=== PATIENT | female | born 1965 | race Two or more races ===

== ENCOUNTER 2020-10-26 23:24 | Emergency (ER) | payer OTHER, SELFPAY ==
[2020-10-26 23:59] VITALS: BP 98/51; PULSE 78; RESP 16; TEMP 36.5; O2SAT 98; BMI 23.9
[2020-10-27 02:00] VITALS: BP 110/65; PULSE 84; RESP 16; O2SAT 99
--- NOTE | 2020-10-27 03:42 | ED_ITS ---
HPI - Abdominal Pain General Chief Complaint: Abdominal Pain Stated Complaint: ABD PAIN Time Seen by Provider: 10/27/20 01:20 Source: patient Mode of arrival: ambulatory History of Present Illness HPI narrative: This is a 55-year-old female with 2 days of nonradiating epigastric pain and endorses that she is status post cholecystectomy. Patient states that the pain gets worse with deep breathing and movement and denies any association with having eaten. This pain is not associated with decrease in appetite, nausea, vomiting, diarrhea, or obstipation. Patient's last bowel movement was this morning and she states it was not black nor did she notice any blood within the stool. Otherwise, she denies urinary pain/burning/frequency, fevers, chills, shortness of breath, recent travel. Related Data Previous Rx's Medication Instructions Recorded ciprofloxacin HCl [Cipro] 250 mg PO Q12H 3 Days #6 tab 10/27/20 sucralfate [Carafate] 10 ml PO BID #420 ml 10/27/20 Allergies Allergy/AdvReac Type Severity Reaction Status Date / Time menthol Allergy Severe ANAPHYLAXIS Verified 10/27/20 00:02 [From Vicks Cough Drops] camphor [From VICKS VAPORUB] Allergy Unknown ANAPHYLAXIS Verified 10/27/20 00:02 eucalyptus Allergy Unknown ANAPHYLAXIS Verified 10/27/20 00:02 [From VICKS VAPORUB] petrolatum,white Allergy Unknown ANAPHYLAXIS Verified 10/27/20 00:02 [From VICKS VAPORUB] trimethobenzamide [Tigan] Allergy Unknown Unknown Verified 10/27/20 00:02 turpentine oil Allergy Unknown ANAPHYLAXIS Verified 10/27/20 00:02 [From VICKS VAPORUB] From Tigan Allergy Severe ANAPHYLAXIS Uncoded 05/05/20 15:27 Review of Systems Review of Systems Pertinent positives and negatives as stated in HPI 10 point review of systems is otherwise negative. Physical Exam Vital Signs: Vital Signs: Last Vital Signs Temp 97.6 F 10/27/20 04:00 Pulse 64 10/27/20 04:00 Resp 16 10/27/20 04:00 BP 106/48 L 10/27/20 04:00 Pulse Ox 95 10/27/20 04:00 Body Mass Index 23.9 VITAL SIGNS: Reviewed. GENERAL: Well developed, well nourished, in no acute distress. HEAD: Normocephalic/atraumatic NOSE: Nares patent bilateral OROPHARYNX: no oral lesions noted, posterior pharynx clear NECK: Supple, no adenopathy LUNGS: Normal breath sounds. No adventitious sounds or accessory muscle use. SpO2<98> CARDIOVASCULAR: Regular rate and rhythm without noted murmurs ABDOMEN: Soft, tenderness noted in epigastrium without rebound, non-distended with bowel sounds. SKIN: Inspection of the skin reveals no rashes NEUROLOGIC: Alert and oriented x 4. Strength and sensation to light touch were grossly intact x 4. Course Course Course Narrative: This is a 55-year-old female with history and clinical presentation suggestive of possible obstructive symptoms given a ?mesh that was placed in her stomach?, gastritis, pancreatitis, stomach ulcer. Review of all investigations is negative for any acute findings other than evidence of chronic pancreatitis when reviewed on previous lab work. On re-e valuation, patient has had good improvement of symptoms with the Carafate solution and was noted to have a UTI for which she will receive initial antibiotics in the emergency department and then be discharged with the remaining course. All results and findings were discussed with her at bedside. MDM - Abdominal Pain Lab Data Result diagrams: 10/27/20 03:55 10/27/20 03:55 Labs: Lab Results 10/27/20 10/27/20 10/27/20 Range/Units 03:55 03:55 03:55 WBC 7.3 (4.8-10.8) X10*3/uL RBC 4.22 (4.20-5.50) X10*6/uL Hgb 12.6 (12.0-16.0) g/dl Hct 37.8 (37-47) % MCV 89.6 (80-98) fL MCH 29.9 (27.0-33.0) pg MCHC 33.3 (31.0-35.0) g/dl RDW 12.0 (11.0-16.0) % Plt Count 185 (160-400) X10*3/uL MPV 10.0 (9.4-12.3) fL Immature Gran % (Auto) 0.1 (0.0-0.4) % Neut % (Auto) 55.7 (45-73) % Lymph % (Auto) 33.1 (20-40) % [place] % (Auto) 7.0 (2-11) % Eos % (Auto) 3.7 (0-4) % Baso % (Auto) 0.4 (0-2) % Lymph # (Auto) 2.4 (1.2-4.9) X10*3/uL [place] # (Auto) 0.5 (0.1-1.2) X10*3/uL Eos # (Auto) 0.3 (0.0-0.4) X10*3/uL Baso # (Auto) 0.0 (0.0-0.2) X10*3/uL Abs Immat Gran (auto) 0.01 (0.00-0.03) X10*3/uL Absolute Neuts (auto) 4.1 (2.0-8.3) X10*3/uL Absolute Nucleated RBC 0.000 (0.0-0.012) X10*3/uL Nucleated RBC % (auto) 0.0 (0.0-0.2) /100WBC Sodium 141 (135-145) mmol/L Potassium 4.1 (3.3-5.1) mmol/L Chloride 103 (96-108) mmol/L Carbon Dioxide 33 H (22-29) mmol/L Anion Gap 9 L (12-20) BUN 19 H (9-16) mg/dL Creatinine 0.97 (0.5-1.4) mg/dL Estim Creat Clear Calc 55.4 Estimated GFR > 60 Random Glucose 112 (60-115) mg/dL Calcium 8.9 (8.4-10.2) mg/dL Total Bilirubin 0.3 (0.0-1.0) mg/dL AST 19 (5-31) U/L ALT 12 (0-31) U/L Alkaline Phosphatase 89 (39-117) U/L Total Protein 6.7 (6.5-8.0) g/dL Albumin 4.1 (3.5-5.0) g/dL Lipase 84 H (8-78) U/L Urine Color YELLOW Urine Appearance CLEAR Urine pH 6.5 (5.0-8.0) Ur Specific [place] 1.025 (1.005-1.025) Urine Protein NEG (NEG-TRACE) MG/DL Urine Glucose (UA) NEG (NEG) MG/DL Urine Ketones NEG (NEG) MG/DL Urine Blood NEG (NEG) Urine Nitrite NEG (NEG) Ur Leukocyte Esterase TRACE H (NEG) Urine RBC 1-4 (0) /HPF Urine WBC 5-9 H (0-4) /HPF Ur Squamous Epith Cells 1+ /LPF Urine Bacteria 2+ /LPF Urine Mucus 1+ /LPF Discharge Plan Discharge Clinical Impression: Elevated lipase UTI (urinary tract infection) Qualifiers: Urinary tract infection type: site unspecified Hematuria presence: without hematuria Qualified Code(s): N39.0 - Urinary tract infection, site not specified Patient Disposition: Home, Self-Care Instructions: Urinary Tract Infection in Women (ED) Additional Instructions: Increase fluid hydration especially with water. Follow-up with your primary care provider for re-evaluation in 2-3 days. Do not hesitate to return to the emergency department should you develop any acute worsening of your symptoms. Prescriptions: New ciprofloxacin HCl [Cipro] 250 mg tablet 250 mg PO Q12H 3 Days Qty: 6 RF: 0 sucralfate [Carafate] 100 mg/mL suspension 10 ml PO BID Qty: 420 RF: 0 Referrals: Physician,Unknown [Primary Care Provider] - 2 days REPLACED BY [facility] Past Medical History Source: nursing notes reviewed Social History Social History Alcohol intake: never Smoking Status: Current every day smoker Smoked in Last 30 Days: Yes Use of substances other than those prescribed or required for medical reasons: No Advance Directives: No Advance Directives Information Provided: No
[2020-10-27 04:00] VITALS: BP 106/48; PULSE 64; RESP 16; TEMP 36.4; O2SAT 95
[2020-10-27 04:00] LABS: MANUAL DIFF FLAG NO
[2020-10-27 04:03] LABS: Basophils Percent Auto 0.4 % (0-2); Eosinophils Absolute Auto 0.3 X10*3/uL (0.0-0.4); Eosinophils Percent Auto 3.7 % (0-4); Hematocrit 37.8 % (37-47); Hemoglobin 12.6 g/dl (12.0-16.0); Imm Gran Abs Auto 0.01 X10*3/uL (0.00-0.03); Imm Gran Pct Auto 0.1 % (0.0-0.4); Lymphocytes Absolute Auto 2.4 X10*3/uL (1.2-4.9); Lymphocytes Percent Auto 33.1 % (20-40); Mean Corpuscular HGB Conc 33.3 g/dl (31.0-35.0); Mean Corpuscular Hemoglobin 29.9 pg (27.0-33.0); Mean Corpuscular Volume 89.6 fL (80-98); Monocytes Absolute Auto 0.5 X10*3/uL (0.1-1.2); Neutrophils Absolute Auto 4.1 X10*3/uL (2.0-8.3); Neutrophils Percent Auto 55.7 % (45-73); Platelet Count 185 X10*3/uL (160-400); Red Blood Count 4.22 X10*6/uL (4.20-5.50); White Blood Count 7.3 X10*3/uL (4.8-10.8)
[2020-10-27 04:05] LABS: Glucose Urine UA NEG (NEG); Leukocyte Esterase Urine TRACE (NEG); Nitrite Urine NEG (NEG); PH 6.5 (5.0-8.0); Specific Gravity - Urine 1.025 (1.005-1.025); UACC Culture Trigger YES; Urine Blood NEG (NEG); Urine Ketones NEG (NEG); Urine Protein NEG (NEG-TRACE)
[2020-10-27 04:07] LABS: Color Urine YELLOW
[2020-10-27 04:08] LABS: Appearance Urine CLEAR
[2020-10-27] MEDS: Ketorolac Tromethamine 15 MG/ML VIAL IVPUSH (04:09)
[2020-10-27] MEDS: Sucralfate Oral Suspension 1 GM/10 ML ORAL.SUSP PO (04:09)
[2020-10-27] MEDS: Acetaminophen 325 MG TABLET 975 MG PO (04:09)
[2020-10-27 04:12] LABS: Bacteria Urine 2+ /LPF; Mucus Urine 1+ /LPF; Squamous Epithelial Cell Urine 1+ /LPF
[2020-10-27 04:40] LABS: Alanine Aminotransferase 12 U/L (0-31); Albumin Level 4.1 g/dL (3.5-5.0); Alkaline Phosphatase 89 U/L (39-117); Anion Gap 9 (12-20); Aspartate Amino Transferase 19 U/L (5-31); Bilirubin Total 0.3 mg/dL (0.0-1.0); Blood Urea Nitrogen 19 mg/dL (9-16); Calcium 8.9 mg/dL (8.4-10.2); Carbon Dioxide 33 mmol/L (22-29); Chloride 103 mmol/L (96-108); Creatinine Clr Calc Pharmacy 55.4; Estimated Glomerular Filt Rate > 60; Glucose Random 112 mg/dL (60-115); Potassium 4.1 mmol/L (3.3-5.1); Sodium 141 mmol/L (135-145); Total Protein 6.7 g/dL (6.5-8.0)
[2020-10-27 04:53] LABS: Lipase 84 U/L (8-78)
[2020-10-27 05:00] VITALS: PULSE 72; RESP 16
[2020-10-27] MEDS: levoFLOXacin 250 MG TABLET PO (05:50)
== END 2020-10-27 05:54 | disposition home or self-care (01) ==
PROVIDERS: Emergency Provider Student in an Organized Health Care Education/Training Program
DX: N39.0 Urinary tract infection, site not specified (principal); R74.8 Abnormal levels of other serum enzymes; F17.200 Nicotine dependence, unspecified, uncomplicated
CPT/HCPCS: 36415; 80053; 81001; 81003; 83690; 85025; 87086; 96374; 99284; J1885

== ENCOUNTER 2021-03-19 00:45 | Emergency (ER) | payer OTHER, SELFPAY ==
[2021-03-19 00:51] VITALS: BP 110/64; PULSE 84; RESP 16; TEMP 36.4; O2SAT 96; BMI 21.2
--- NOTE | 2021-03-19 01:15 | ED_ITS ---
HPI - Headache General Chief Complaint: Headache Stated Complaint: migraine/vomiting Time Seen by Provider: 03/19/21 01:10 Source: patient Mode of arrival: ambulatory Limitations: no limitations History of Present Illness HPI Narrative: Patient comes in complaining of a migraine headache , started 1 week ago. Patient states she was seen approximately 3 days ago at [facility], patient was given a prescription which she did not feel. Patient complaining of nausea and vomiting, no diarrhea. Patient states she gets a migraine every 3 weeks, but this time it has not resolved. Related Data Previous Rx's Medication Instructions Recorded ciprofloxacin HCl 250 mg tablet 250 mg PO Q12H 3 Days #6 tab 10/27/20 (Cipro) sucralfate 100 mg/mL oral 10 ml PO BID #420 ml 10/27/20 suspension (Carafate) qbsiardmct-wiwzuylridwvy-asefplwr 1 cap PO Q6H PRN #14 cap 03/19/21 50 mg-300 mg-40 mg capsule (Fioricet) Allergies Allergy/AdvReac Type Severity Reaction Status Date / Time menthol Allergy Severe ANAPHYLAXIS Verified 03/19/21 00:51 [From Vicks Cough Drops] camphor [From VICKS VAPORUB] Allergy Unknown ANAPHYLAXIS Verified 03/19/21 00:51 eucalyptus Allergy Unknown ANAPHYLAXIS Verified 03/19/21 00:51 [From VICKS VAPORUB] petrolatum,white Allergy Unknown ANAPHYLAXIS Verified 03/19/21 00:51 [From VICKS VAPORUB] trimethobenzamide [Tigan] Allergy Unknown Unknown Verified 03/19/21 00:51 turpentine oil Allergy Unknown ANAPHYLAXIS Verified 03/19/21 00:51 [From VICKS VAPORUB] From Tigan Allergy Severe ANAPHYLAXIS Uncoded 05/05/20 15:27 Review of Systems Review of Systems: Constitutional : No Weight loss, No Fever, No Chills, No Night Sweats, No Fatigue, No Malaise ENT/Mouth : No Hearing loss, No Ear Pain, No Nasal Congestion, No Sinus Pain, No Hoarseness, No sore throat, No Rhinorrhea, No Swallowing Difficulty Eyes: No Eye Pain, No Swelling, No Redness, No Foreign Body, No Discharge, No Vision Changes Cardiovascular : No Chest Pain, No SOB, No Dyspnea on Exertion, No Orthopnea, No Edema, No Palpitations Respiratory : No Cough, No Sputum, No Wheezing, No Smoke Exposure, No Dyspnea Gastrointestinal : No Nausea, No Vomiting, No Diarrhea, No Constipation, No abdominal Pain, No Hematochezia, No Melena Genitourinary : no irregular bleeding, No Dysuria, No Urinary Frequency, No Hematuria, No Urinary Incontinence, No Urgency, No Flank Pain, No Urinary Flow Changes, No Hesitancy Musculoskeletal : No joint pain, No Myalgias, No Joint Swelling Skin : No Skin Lesions, No rash Neuro : No Weakness, No Numbness, No Paresthesias, No Loss of Consciousness, No Dizziness, complaining of a migraine headache Psych : No Anxiety/Panic, No Depression, No SI/HI/AH/VH, No Social Issues, Heme/Lymph: No Bruising, No Bleeding,No Lymphadenopathy Endocrine : No Polyuria, No Polydipsia, No Temperature Intolerance PMFSH Past Medical History Medical History (Updated 03/19/21 @ 02:54 by Carly Morillo MD) Migraine Social History Social History Alcohol intake: never Advance Directives: No Advance Directives Information Provided: No Physical Exam Vital Signs: Vital Signs: Last Vital Signs Temp 97.6 F 03/19/21 00:51 Pulse 84 03/19/21 00:51 Resp 16 03/19/21 00:51 BP 110/64 03/19/21 00:51 Pulse Ox 96 03/19/21 00:51 Body Mass Index 21.2 Const: Other: Appearance: Alert. Oriented X3. Crying Eyes: Pupils equal, round and reactive to light. Positive photophobia ENT: Pharynx normal. Neck: Normal inspection. Neck supple. No lymph nodes noted. No crepitus CVS: Normal heart rate and rhythm. Pulses normal. Normal S1 and S2 Respiratory: No respiratory distress. Breath sounds normal. No Wheezing. No rales Abdomen: Soft and nontender. No rigidity. No distention. good BS x4 Skin: Skin warm and dry. Normal skin color. Normal skin turgor. Extremities: No lower extremity edema. No lower extremity edema. No Lacerations. No Rash Neuro: Oriented X 3. No motor deficit. No sensory deficit. Moving all extermities. No slurred speech. Course Course Course Narrative: Patient states that headache is much better, patient requesting 1 dose of Fioricet prior to discharge. Patient denies any visual changes, no nausea or vomiting. Discharge Plan Discharge Clinical Impression: Migraine Qualifiers: Migraine type: unspecified Status migrainosus presence: without status migrainosus Intractability: not intractable Qualified Code(s): G43.909 - Migraine, unspecified, not intractable, without status migrainosus Patient Disposition: Home, Self-Care Instructions: Migraine Headache (ED) Additional Instructions: Please follow-up with your primary care physician tomorrow. If you have any worsening or new symptoms, please return to the emergency room or call 911 Prescriptions: New zklpnqiohj-jsuirulvsjwur-zvdw [Fioricet] 50-300-40 mg capsule 1 cap PO Q6H PRN (Reason: pain) Qty: 14 RF: 0 No Action ciprofloxacin HCl [Cipro] 250 mg tablet 250 mg PO Q12H 3 Days Qty: 6 RF: 0 sucralfate [Carafate] 100 mg/mL suspension 10 ml PO BID Qty: 420 RF: 0
[2021-03-19] MEDS: diphenhydrAMINE HCL 50 MG/ML VIAL IVPUSH (01:35)
[2021-03-19] MEDS: Ketorolac Tromethamine 15 MG/ML VIAL 30 MG IVPUSH (01:39)
[2021-03-19] MEDS: Metoclopramide HCl 10 MG/2 ML VIAL IVPUSH (01:42)
[2021-03-19] MEDS: 0.9 % Sodium Chloride 1,000 ML 999 ML IV (01:45)
[2021-03-19] MEDS: Butalb/Acetamin/Caff 50/325/40 TABLET 1 TAB PO (03:01)
[2021-03-19 03:06] VITALS: RESP 16
== END 2021-03-19 03:07 | disposition home or self-care (01) ==
PROVIDERS: Emergency Provider Emergency Medicine
DX: G43.909 Migraine, unspecified, not intractable, without status migrainosus (principal); Z79.899 Other long term (current) drug therapy
CPT/HCPCS: 96365; 96375; 99283; 99284; J1200; J1885; J2765

== ENCOUNTER → 2021-10-25 08:16 | Outpatient (BNVA) | payer OTHER, SELFPAY | PROVIDERS: Visit Provider Orthopaedic Surgery | DX: M19.041 Primary osteoarthritis, right hand (principal); M19.042 Primary osteoarthritis, left hand; R20.0 Anesthesia of skin; R20.2 Paresthesia of skin | CPT/HCPCS: 99202 ==

== ENCOUNTER 2022-01-25 04:43 | Emergency (ER) | payer OTHER, SELFPAY ==
[2022-01-25 05:00] VITALS: BP 98/52; PULSE 90; RESP 18; TEMP 36.7; O2SAT 97; BMI 25.7
--- NOTE | 2022-01-25 07:22 | ED_ITS ---
HPI - General Adult General Chief complaint: General Medical Stated complaint: n/v, stomach pain, tick bite on foot Time Seen by Provider: 01/25/22 07:22 Source: patient Mode of arrival: ambulatory Limitations: no limitations History of Present Illness HPI narrative: 56-year-old female came in for evaluation of tick imbedded in her left foot. Unknown duration of the tech been on her, patient also been complaining of migraine and some nausea, but no abdominal pain no fever, no chills. Related Data Home Medications Medication Instructions Recorded Confirmed albuterol sulfate 90 mcg/actuation 0 mcg inhalation 10/25/21 aerosol inhaler Previous Rx's Medication Instructions Recorded ciprofloxacin HCl 250 mg tablet 250 mg PO Q12H 3 days #6 tabs 10/27/20 (Cipro) bxfklvlmyd-hfottmfrxchhu-aixgldey 1 cap PO Q6H PRN pain #14 caps 03/19/21 50 mg-300 mg-40 mg capsule (Fioricet) doxycycline hyclate 100 mg tablet 100 mg PO BID #14 tabs 01/25/22 Allergies Allergy/AdvReac Type Severity Reaction Status Date / Time menthol Allergy Severe ANAPHYLAXIS Verified 10/25/21 08:33 [From Vicks Cough Drops] camphor [From VICKS VAPORUB] Allergy Unknown ANAPHYLAXIS Verified 10/25/21 08:33 eucalyptus Allergy Unknown ANAPHYLAXIS Verified 10/25/21 08:33 [From VICKS VAPORUB] petrolatum,white Allergy Unknown ANAPHYLAXIS Verified 10/25/21 08:33 [From VICKS VAPORUB] trimethobenzamide [Tigan] Allergy Unknown Unknown Verified 10/25/21 08:33 turpentine oil Allergy Unknown ANAPHYLAXIS Verified 10/25/21 08:33 [From VICKS VAPORUB] From Tigan Allergy Severe ANAPHYLAXIS Uncoded 10/25/21 08:33 Review of Systems Review of Systems: All other systems are reviewed and are negative Constitutional: Reports as per HPI and Reports no additional constitutional complaints Eyes: Reports as per HPI and Reports no additional eye complaints Reports system reviewed and no additional complaints, except as documented Cardiovascular: Reports as per HPI and Reports no additional cardiovascular complaints Respiratory: Reports as per HPI and Reports no additional respiratory complaints Gastrointestinal: Reports as per HPI and Reports no additional gastrointestinal complaints Genitourinary: Reports no additional female genitourinary complaints Musculoskeletal: Reports no additional musculoskeletal complaints Skin/Breast: Reports system reviewed and no additional complaints, except as docu Psychiatric: Reports no additional psychiatric complaints Endocrine: Reports no additional endocrine complaints Hematologic/Lymphatic: Reports no additional hematologic/lymphatic complaints Allergic/Immunologic: Reports no additional allergic/immunologic complaints Reports system reviewed and no additional complaints, except as documented and Reports Abnormal speech present [facility] Past Medical History Medical History Migraine Social History Social History Alcohol intake: never Advance Directives: No Advance Directives Information Provided: Yes Current occupational status: disabled 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 Blood pressure normal. Heart rate normal. Respiration rate normal. Temperature normal. Oxygen saturation normal. Appearance: Alert. Oriented X3. No acute distress. Head: Normal external exam. Normocephalic. Atraumatic. No Romoe signs noted. No raccoon eyes noted Eyes: PERRLA. EOMI. Conjunctiva and sclera normal. Eyelids normal. ENT: TM's Normal. Pharynx normal. Uvula midline. Moist mucous membranes. No trismus noted. No drooling noted. No muffled voice noted. Neck: Normal inspection. Neck supple. FROM. No adenopathy. Thyroid Normal. No meningeal signs. No neck mass noted. CVS: Normal heart rate and rhythm. Heart sound normal. No murmurs noted. Pulses normal throughout. Respiratory: No respiratory distress. Painless inspiration. Breath sounds normal. No wheezes/rales/rhonchi noted. Chest nontender. No accessory muscle usage noted or decreased air movement noted. Abdomen: Soft and nontender. Bowel sounds normal in all 4 quadrants. No distention noted. No organomegaly noted. No visible injury noted. Back: No CVA tenderness. Full range of motion noted. Skin: Skin warm and dry. Normal skin color. Normal skin turgor. No rashes/lesions/lacerations noted. Extremities: Left foot exam: A tick imbedded and now 5th toe webbing no receive male. No bleeding. Neuro: Oriented X 3. Cranial nerve exam: II-XII are grossly intact No motor deficit. No sensory deficit. Reflexes normal. Course Course Course Narrative: Status post tick removal from the 5th sweating space of the left foot unknown periods of time that the tick was embedded in her scan were start on doxycycline prophylactically.. Migraines feel better, patient is not nauseated or vomiting, no abdominal pain. Procedure note: Tick removal from the left foot. Patient was in supine position could not tolerate the procedure without anaesthesia 2 cc of lidocaine was given in the 5th web space, using forceps and needle able to remove the tick. Discharge Plan Discharge Clinical Impression: Migraine, Tick bite with subsequent removal of tick Patient Disposition: Home, Self-Care Instructions: Tick Bite (ED) Prescriptions: New doxycycline hyclate 100 mg tablet 100 mg PO BID Qty: 14 0RF No Action ciprofloxacin HCl [Cipro] 250 mg tablet 250 mg PO Q12H 3 Days Qty: 6 0RF dhmepfhgki-lfvuchhrmaqab-otps [Fioricet] 50-300-40 mg capsule 1 cap PO Q6H PRN (Reason: pain) Qty: 14 0RF albuterol sulfate 90 mcg/actuation HFA aerosol inhaler 0 mcg inhalation Referrals: Physician,Unknown J [Primary Care Provider] -
[2022-01-25] MEDS: Lidocaine HCl 1 % MPF 5 ML VIAL SUBCUT (07:35)
--- NOTE | 2022-01-25 07:43 | PC.NURSE ---
Dr Tran at bedside. pt has been yelling to or at staff since this RN arrival. This RN unable to view embedded tick.
[2022-01-25 07:45] VITALS: BP 121/63; PULSE 71; RESP 18; TEMP 36.8; O2SAT 97
== END 2022-01-25 08:55 | disposition home or self-care (01) ==
PROVIDERS: Emergency Provider Emergency Medicine
DX: G43.909 Migraine, unspecified, not intractable, without status migrainosus (principal); S90.862A Insect bite (nonvenomous), left foot, initial encounter; W57.XXXA Bitten or stung by nonvenomous insect and other nonvenomous arthropods, initial encounter; Y93.9 Activity, unspecified; Y92.9 Unspecified place or not applicable; Y99.9 Unspecified external cause status
CPT/HCPCS: 96372; 99284

== ENCOUNTER 2022-01-30 08:11 | Emergency (ER) | payer OTHER, SELFPAY ==
[2022-01-30 08:37] VITALS: BP 127/65; PULSE 92; RESP 18; TEMP 36.5; O2SAT 98; BMI 24.7
--- NOTE | 2022-01-30 08:42 | ED_ITS ---
HPI - General Adult General Chief complaint: General Medical Stated complaint: Bug bites Time Seen by Provider: 01/30/22 08:41 Source: patient Mode of arrival: ambulatory Limitations: no limitations History of Present Illness HPI narrative: Patient is a 56 year old female presenting to the emergency department today with itchy skin. Patient states that where she is currently living has a lot of small bugs that she feels are biting her skin, regularly. Patient states that she has somewhere else to stay and is not in an active crisis, she just wants the itching to stop. Patient states that she pulled a tick off of her right arm this morning and she noticed as soon as she bit her. Patient denies any dizziness, lightheadedness, abdominal pain, nausea, vomiting, fever, chills, blurry vision, double vision, loss of vision, chest pain, difficulty breathing, shortness of breath, back pain, night sweats, pain with urination, increased urinary frequency, increased urinary urgency, blood in her urine or stool, syncope or a near syncopal episode, recent trauma or falls, bowel incontinence, bladder incontinence, bowel retention, bladder retention, or any other complaints at this time. Onset (ago): day(s) Severity: mild Severity scale (1-10): 2 Quality: other (itchy) Relieving factors: none Exacerbating factors: none Associated symptoms: denies other symptoms Treatments prior to arrival: none Related Data Home Medications Medication Instructions Recorded Confirmed albuterol sulfate 90 mcg/actuation 0 mcg inhalation 10/25/21 aerosol inhaler Previous Rx's Medication Instructions Recorded ciprofloxacin HCl 250 mg tablet 250 mg PO Q12H 3 days #6 tabs 10/27/20 (Cipro) mnpbvejabw-hkqmzfdygbvta-ryuasyog 1 cap PO Q6H PRN pain #14 caps 03/19/21 50 mg-300 mg-40 mg capsule (Fioricet) doxycycline hyclate 100 mg tablet 100 mg PO BID #14 tabs 01/25/22 prednisone 20 mg tablet 20 mg PO DAILY 12 days #26 tabs 01/30/22 Allergies Allergy/AdvReac Type Severity Reaction Status Date / Time menthol Allergy Severe ANAPHYLAXIS Verified 10/25/21 08:33 [From Vicks Cough Drops] camphor [From VICKS VAPORUB] Allergy Unknown ANAPHYLAXIS Verified 10/25/21 08:33 eucalyptus Allergy Unknown ANAPHYLAXIS Verified 10/25/21 08:33 [From VICKS VAPORUB] petrolatum,white Allergy Unknown ANAPHYLAXIS Verified 10/25/21 08:33 [From VICKS VAPORUB] trimethobenzamide [Tigan] Allergy Unknown Unknown Verified 10/25/21 08:33 turpentine oil Allergy Unknown ANAPHYLAXIS Verified 10/25/21 08:33 [From VICKS VAPORUB] From Tigan Allergy Severe ANAPHYLAXIS Uncoded 10/25/21 08:33 Review of Systems Constitutional: Constitutional: Reports no additional constitutional complaints, Denies chills, Denies fever(s) and Denies night sweats Eyes: Eyes: Reports no additional eye complaints, Denies blurry vision, Denies change in vision, Denies diplopia, Denies eye discharge, Denies loss of vision and Denies eye pain ENT: Denies dizziness Cardiovascular: Cardiovascular: Reports no additional cardiovascular compl aints, Denies chest pain, Denies lightheadedness, Denies Loss of Consciousness and Denies dyspnea Respiratory: Respiratory: Reports no additional respiratory complaints and Denies dyspnea Gastrointestinal: Gastrointestinal: Reports no additional gastrointestinal complaints, Denies abdominal pain, Denies melena, Denies hematochezia, Denies change in bowel habits and Denies change in stool character Genitourinary: Genitourinary: Denies hematuria, Denies urinary frequency, Denies dysuria, Denies urinary incontinence, Denies urinary hesitancy and Denies urinary urgency Musculoskeletal: Musculoskeletal: Reports no additional musculoskeletal complaints, Denies numbness and Denies tingling Integumentary/Breasts: Skin/Breast: Reports pruritus Neurologic: Denies dizziness, Denies loss of vision, Denies numbness and Denies tingling Psychiatric: Psychiatric: Reports no additional psychiatric complaints Endocrine: Endocrine: Reports no additional endocrine complaints Hematologic/Lymphatic: Hematologic/Lymphatic: Reports no additional hematologic/lymphatic complaints Allergic/Immunologic: Allergic/Immunologic: Reports no additional allergic/immunologic complaints PMFSH Past Medical History Attestation statement: The following information was validated with the patient. 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 Physical Exam ED Vital Signs: Vital Signs - 24 hr 01/30/22 08:37 Temperature 97.7 F Pulse Rate 92 Respiratory Rate 18 Blood Pressure 127/65 Pulse Oximetry 98 Oxygen Delivery Method Room Air BMI result Body Mass Index 24.7 Const General: cooperative, no acute distress, alert and awake Nutritional Appearance: well nourished Orientation/consciousness: patient oriented x3 Limitations: no limitations HENMT Head: Yes normal to inspection and Yes atraumatic Ears: hearing grossly normal bilaterally and external ears normal General nose exam: Normal external nose present, no nasal discharge noted and no epistaxis Face and sinus: Yes normal facial exam, No abrasion and No laceration Mouth: Normal oral and palatal mucosa present, no drooling and no muffled voice Eyes General: appearance normal, both eyes and all related structures Periorbital: periorbital findings normal Eyelids: Yes eyelids normal Conjunctivae: conjunctivae normal Pupils: Equal, round and reactive pupils present EOM: EOMs intact bilaterally Neck Neck: Yes normal visual inspection, Yes full ROM and Yes no lymphadenopathy Chest Chest palpation & inspection: normal inspection of the chest Resp Effort & Inspection: normal respiratory effort and able to speak in complete sentences Auscultation: clear to auscultation bilaterally Cardio Rate: regular rate Rhythm: regular rhythm GI Inspection: Yes normal to inspection Skin Other: diffuse itching Neuro General: patient oriented x3 and moves all extremities Cranial nerves: Yes Equal, round and reactive pupils present Cognition (Neuro): normal cognition Motor exam (neuro): 5/5 motor strength present throughout Sensory Exam: Normal double simultaneous stimulation for sensation Coordination: zyruij-tv-isof test normal Extrem General: Yes normal to inspection, Yes full ROM and Yes capillary refill normal Psych Appearance: grossly normal Mental Status: mental status grossly normal Affect: normal affect Attitude: cooperative Thought process: Normal thought process present Thought content: Normal thought content present Insight: Good insight present (Psych) Medical Decision Making MDM Narrative Medical decision making narrative: Patient is a 56 year old female presenting to the emergency department today with diffuse itching. Patient's physical exam was unremarkable. I explained my physical exam findings to the patient. I answered all questions asked by the patient. Patient received IM Solu-medrol and PO Ativan which she stated helped her symptoms significantly. I stressed the importance of the patient taking her medication as prescribed. I stressed the importance of the patient following up with her primary care provider. I stressed the importance of the patient returning to the emergency department immediately if her symptoms were to worsen or if she were to develop any dizziness, shortness of breath, difficulty breathing, chest pain, blurry vision, loss of vision, nausea, vomiting, abdominal pain, fever, chills, back pain, or any other complaints. Patient verbalized agreement and understanding with this treatment plan and discharge. Medical Records Medical records reviewed: Yes I reviewed the patient's medical records. Discharge Plan Discharge Clinical Impression: Tick bite Patient Disposition: Home, Self-Care Instructions: Tick Bite (ED) Additional Instructions: Follow up with your primary care provider. Return to the emergency department immediately if your symptoms worsen or if you develop any dizziness, shortness of breath, difficulty breathing, chest pain, blurry vision, loss of vision, nausea, vomiting, abdominal pain, fever, chills, back pain, or any other complaints. Prescriptions: New prednisone 20 mg tablet 20 mg PO DAILY 12 Days Qty: 26 0RF Rx Instructions: Take 3 tablets for 5 days THEN; Take 2 tablets for 4 days THEN; Take 1 tablet for 3 days No Action ciprofloxacin HCl [Cipro] 250 mg tablet 250 mg PO Q12H 3 Days Qty: 6 0RF oqxvmturwd-agpluorblevpc-etpr [Fioricet] 50-300-40 mg capsule 1 cap PO Q6H PRN (Reason: pain) Qty: 14 0RF doxycycline hyclate 100 mg tablet 100 mg PO BID Qty: 14 0RF albuterol sulfate 90 mcg/actuation HFA aerosol inhaler 0 mcg inhalation Referrals: [facility] [Provider Group] (Call to establish and follow up with a primary care provider. If you already have a primary care provider, follow up with them. ) [facility] [Provider Group] (Call to establish and follow up with a primary care provider. If you already have a primary care provider, follow up with them. ) [facility] [Provider Group] (Call to establish and follow up with a primary care provider. If you already have a primary care provider, follow up with them. ) Stand Alone Forms: Work/School Release Interventions: ED Discharge Assessment Last Done: 01/30/22 09:25 Discharge Date/Time: 01/30/22 09:29 Print Language: Barbadian
[2022-01-30] MEDS: LORazepam 1 MG TABLET 2 MG PO (09:07)
[2022-01-30] MEDS: methylPREDNISolone Sod Succ 125 MG/2 ML VIAL 120 MG IM (09:08)
== END 2022-01-30 09:29 | disposition home or self-care (01) ==
PROVIDERS: Emergency Provider Emergency Medicine
DX: S40.861A Insect bite (nonvenomous) of right upper arm, initial encounter (principal); W57.XXXA Bitten or stung by nonvenomous insect and other nonvenomous arthropods, initial encounter; L29.9 Pruritus, unspecified; Y93.9 Activity, unspecified; Y92.039 Unspecified place in apartment as the place of occurrence of the external cause; Y99.9 Unspecified external cause status
CPT/HCPCS: 96372; 99283; 99284; J2930

== ENCOUNTER 2022-03-02 03:11 | Emergency (ER) | payer OTHER, SELFPAY ==
[2022-03-02 04:24] VITALS: BP 99/56; PULSE 82; RESP 18; TEMP 36.8; O2SAT 94; BMI 21.2
--- NOTE | 2022-03-02 09:04 | ED_ITS ---
HPI - General Adult General Chief complaint: General Medical Stated complaint: Migraine/Nausea Time Seen by Provider: 03/02/22 08:45 Source: patient, RN notes reviewed and old records reviewed Mode of arrival: ambulatory Limitations: no limitations History of Present Illness HPI narrative: This is a 56-year-old female, with a past medical history of migraines, who presents today with headache x4 days. Patient rates her headache as an aching 8/10 pain that is constant, but does not radiate and worsens with bright light. She reports that she has been unable to eat this morning secondary to the pain and nausea that her headache is causing. She states that she vomited 3 times yesterday due to her pain. She states that she typically takes Fioricet for her migraines which was given to her at her last emergency department visit, however states that she was taking the medication every day and has since run out of her medication. She states that she has not taken any medications for headaches for the last 4 days. She has had no recent falls or head trauma. She denies any syncope, fevers, chills, cough, shortness of breath, chest pain, palpitations, weakness, visual changes, lightheadedness, or dizziness. She states that she is very stressed out with her housing situation, she reports that there are bugs in her house and has reported it to the [facility] low reports that they have not done anything for her . She states that she has an appointment with a neurologist in March for her frequent migraines. She denies any other complaints or concerns at this time. Onset (ago): day(s) Location: head Radiation: non-radiation Severity: moderate Severity scale (1-10): 8 Quality: aching Pain Consistency: constant Relieving factors: none Exacerbating factors: other (Bright light) Associated symptoms: headaches Treatments prior to arrival: none Related Data Home Medications Medication Instructions Recorded Confirmed albuterol sulfate 90 mcg/actuation 0 mcg inhalation 10/25/21 aerosol inhaler Previous Rx's Medication Instructions Recorded ciprofloxacin HCl 250 mg tablet 250 mg PO Q12H 3 days #6 tabs 10/27/20 (Cipro) urifuhjdxh-ptqomyxejpoik-owznyoyz 1 cap PO Q6H PRN pain #14 caps 03/19/21 50 mg-300 mg-40 mg capsule (Fioricet) doxycycline hyclate 100 mg tablet 100 mg PO BID #14 tabs 01/25/22 prednisone 20 mg tablet 20 mg PO DAILY 12 days #26 tabs 01/30/22 emfjelntao-ojlprqlksjozf-tfisqnrv 1 cap PO BID PRN headache #7 caps 03/02/22 50 mg-300 mg-40 mg capsule (Fioricet) Allergies Allergy/AdvReac Type Severity Reaction Status Date / Time menthol Allergy Severe ANAPHYLAXIS Verified 10/25/21 08:33 [From Vicks Cough Drops] camphor [From VICKS VAPORUB] Allergy Unknown ANAPHYLAXIS Verified 10/25/21 08:33 eucalyptus Allergy Unknown ANAPHYLAXIS Verified 10/25/21 08:33 [From VICKS VAPORUB] petrolatum,white Allergy Unknown ANAPHYLAXIS Verified 10/25/21 08:33 [From VICKS VAPORUB] trimethobenzamide [Tigan] Allergy Unknown Unknown Verified 10/25/21 08:33 turpentine oil Allergy Unknown ANAPHYLAXIS Verified 10/25/21 08:33 [From VICKS VAPORUB] From Tigan Allergy Severe ANAPHYLAXIS Uncoded 10/25/21 08:33 Review of Systems Review of Systems: Constitutional: No Fever, No Chills ENT/Mouth: No sore throat, No Rhinorrhea, No Swallowing Difficulty Eyes: No Eye Pain, No Swelling, No Redness Cardiovascular: No Chest Pain, No SOB, No Orthopnea, No Edema Respiratory: No Cough, No Sputum, No Wheezing, No dyspnea Gastrointestinal: +Nausea, + Vomiting, No Diarrhea, No abdominal Pain, No Hematochezia, No Melena Genitourinary: No Dysuria, No Urinary Frequency, No Hematuria Musculoskeletal: No joint pain, No Myalgias Skin: No Skin Lesions, No rash Neuro: +headache, No Weakness, No Numbness, No Dizziness Psych: No Anxiety/Panic, No Depression Heme/Lymph: No Bruising, No Lymphadenopathy Endocrine: No Polyuria, No Polydipsia PMFSH Past Medical History Medical History (Updated 03/02/22 @ 11:14 by SOLIS Posadas) Migraine Social History Social History Alcohol intake: never Patient Tobacco Use Status: Current someday Tobacco user Advance Directives: No Advance Directives Information Provided: No Current occupational status: disabled 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 Oriented X3. Sweatshirt covering head and eyes due to photophobia. Eyes: Pupils equal, round and reactive to light. EOMI ENT: Pharynx normal. Neck: Normal inspection. Neck supple. CVS: S1S2 regular. Normal heart rate and rhythm. Pulses normal. Respiratory: Expiratory wheezes in the right upper and right lower lung base. No rhonchi or rales. No respiratory distress. Breath sounds normal. Abdomen: Soft and nontender. +BS x4 Skin: Skin warm and dry. Normal skin color. Normal skin turgor. No rashes. Extremities: No lower extremity edema. Neuro: Oriented X 3. No motor deficit. No sensory deficit. Symmetric smile, able to raise eyebrows and close eyes shut. Equal patient placement coordinator strength, good strength in upper and lower extremities. Negative pronator drift. Course Course Course Narrative: This is a 56-year-old female, with a past medical history of migraines, who presents today with headache x4 days. Plan: Patient was seen and evaluated, blood pressure mildly hypotensive at 99/56. All other vital signs are within normal limits. Patient will be medicated with Fioricet and ibuprofen 600 mg by mouth. Patient has no neurologic deficits on exam. Will reassess after patient has been medicated. Reevaluation(s) Reevaluation #1: Patient asleep, resting comfortably in stretcher. Upon waking patient up, patient reports that she is still in pain and that the medications have not helped her headache pain. Will re-evaluate. Time: 10:36 Reevaluation #2: Patient reports that she has feeling little better and would like to go home to rest. We will discharge patient on Fioricet. Patient advised that taking Fioricet regularly can cause rebound headaches and to avoid using this every day. Patient has follow-up with her primary care physician next week and Neurology appointment in March, advised to follow-up with them for further management. Patient understands and agrees with this plan. Time: 11:11 Discharge Plan Discharge Clinical Impression: Migraine Patient Disposition: Home, Self-Care Instructions: Migraine Headache (ED) Additional Instructions: You were treated for a migraine headache today. You were given Fioricet and Ibuprofen for your pain. Take Fioricet as needed for migraine headaches. Follow up with your primary care physician. If you develop new or worsening symptoms call 911 or come back to the ER for further evaluation. Prescriptions: New mdojllalrt-dzmwfugnsppke-naee [Fioricet] 50-300-40 mg capsule 1 cap PO BID PRN (Reason: headache) Qty: 7 0RF No Action ciprofloxacin HCl [Cipro] 250 mg tablet 250 mg PO Q12H 3 Days Qty: 6 0RF mfudajilmu-fpqvjtpcpyncj-ozjd [Fioricet] 50-300-40 mg capsule 1 cap PO Q6H PRN (Reason: pain) Qty: 14 0RF doxycycline hyclate 100 mg tablet 100 mg PO BID Qty: 14 0RF prednisone 20 mg tablet 20 mg PO DAILY 12 Days Qty: 26 0RF Rx Instructions: Take 3 tablets for 5 days THEN; Take 2 tablets for 4 days THEN; Take 1 tablet for 3 days albuterol sulfate 90 mcg/actuation HFA aerosol inhaler 0 mcg inhalation Interventions: ED Discharge Assessment Last Done: 03/02/22 11:20 Discharge Date/Time: 03/02/22 11:21
[2022-03-02] MEDS: Ibuprofen 600 MG TABLET PO (10:02)
[2022-03-02] MEDS: Butalb/Acetamin/Caff 50/325/40 TABLET 1 TAB PO (10:03)
== END 2022-03-02 11:21 | disposition home or self-care (01) ==
PROVIDERS: Emergency Provider Emergency Medicine
DX: G43.909 Migraine, unspecified, not intractable, without status migrainosus (principal); I95.9 Hypotension, unspecified; Z79.899 Other long term (current) drug therapy; F17.200 Nicotine dependence, unspecified, uncomplicated
CPT/HCPCS: 99283

== ENCOUNTER 2022-03-25 06:15 | Emergency (ER) | payer OTHER, SELFPAY | END 2022-03-25 08:12 | disposition left against medical advice (07) | PROVIDERS: Emergency Provider Emergency Medicine | DX: G43.909 Migraine, unspecified, not intractable, without status migrainosus (principal) ==

== ENCOUNTER 2022-04-26 09:38 | Outpatient (REF) | payer OTHER, SELFPAY ==
--- NOTE | 2022-04-26 | EMG_ITS ---
Bilateral median and ulnar motor and sensory studies were performed. Bilateral radial sensory study was performed and paraspinal muscles were tested with a needle. 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 MD LISA Childress/ANT / [phone]
== END 2022-04-26 09:39 | disposition home or self-care (01) ==
LOC: HO.NEURO 09:38
PROVIDERS: Visit Provider Orthopaedic Surgery
DX: Z13.89 Encounter for screening for other disorder (principal)

== ENCOUNTER → 2022-07-11 12:59 | Outpatient (BNVA) | payer OTHER, SELFPAY | PROVIDERS: Visit Provider Orthopaedic Surgery | DX: M19.041 Primary osteoarthritis, right hand (principal); M19.042 Primary osteoarthritis, left hand; G56.03 Carpal tunnel syndrome, bilateral upper limbs | CPT/HCPCS: 99212 ==

== ENCOUNTER 2022-08-02 08:56 | Day surgery (SDC) | payer OTHER, SELFPAY ==
[2022-08-02 09:02] VITALS: BMI 22.1
[2022-08-02 10:22] VITALS: BP 119/63; PULSE 70; RESP 16; TEMP 36.8; O2SAT 95
--- NOTE | 2022-08-02 10:34 | P.OP_ITS ---
Operative Note Operative Note Date of Service: 08/02/22 Narrative: Preop diagnosis: 1. left recurrent Carpal tunnel syndrome Postop diagnosis: same Procedure: 1. left repeat Carpal tunnel release Surgeon: Lacy Amaya MD Anesthesia: local block using 1% lidocaine with epinephrine Findings: Thickened transverse carpal ligament. EBL: Less than 5 mL Specimens: None Complications: None Disposition: Brought to recovery room in stable condition Plan: Follow-up for 10-14 days for wound check and suture removal Indications: The patient is 56 years old, with recurrent left carpal tunnel syndrome that has been unresponsive to nonoperative management. The risks and benefits of operative treatment including but not limited to risk of damage to blood vessels, nerves, tendons, infection, persistent pain, persistent symptoms, or possible need for additional surgery were discussed with the patient and the patient wishes to proceed with surgery. Procedure: Once consent was obtained a local block was performed using a combination of 1% lidocaine with epinephrine. The patient was then brought back to the operating suite and placed on the operative table in supine position. A tourniquet was applied to the proximal aspect of the left upper extremity and the limb was prepped and draped in a standard surgical fashion. Once assured that we had a good block, a 2.0 cm longitudinal incision was made centered over the carpal tunnel and extended proximal to the distal wrist crease in a zigzag fashion.. The incision was made through the skin to the subcutaneous tissues using a #15 blade. Dissection was made down to the level of the Volar forearm fascia in the proximal aspect of the incision. The volar forearm fascia was then incised longitudinally using tenotomy scissors. This allowed me to then visualize the median nerve. The median nerve was then protected as I extended distally. The scar was released over the carpal tunnel using 1st a 15. Blade then using tenotomy scissors under direct visualization in a proximal to distal direction while protecting the nerve. Once satisfied with our Repeatcarpal tunnel release the wound was copiously irrigated with normal saline and hemostasis was obtained with a brief period of local pressure. The skin edges were reapproximated with some 5.0 nylon suture material and a sterile dressing was applied. The patient appears to have tolerated the procedure well and with no complic ations. All digits were well vascularized at the conclusion of the case.
--- NOTE | 2022-08-02 10:34 | MHC.SHP ---
Pre-Procedural Eval Section A Date of Service: 08/02/22 The patient is an INPATIENT: No Changes since office visit: No Cold of Flu in the past 2 weeks, No New Medical Problems, No Changes in Medication and No Patient answered all questions The History & Physical has been completed within 30 days and I have reviewed it.: Yes Section B Chief Complaint: Carpal tunnel syndrome, left upper limb Allergies: Allergies Allergy/AdvReac Type Severity Reaction Status Date / Time menthol Allergy Severe ANAPHYLAXIS Verified 10/25/21 08:33 [From Vicks Cough Drops] camphor [From VICKS VAPORUB] Allergy Unknown ANAPHYLAXIS Verified 10/25/21 08:33 eucalyptus Allergy Unknown ANAPHYLAXIS Verified 10/25/21 08:33 [From VICKS VAPORUB] petrolatum,white Allergy Unknown ANAPHYLAXIS Verified 10/25/21 08:33 [From VICKS VAPORUB] trimethobenzamide [Tigan] Allergy Unknown Unknown Verified 10/25/21 08:33 turpentine oil Allergy Unknown ANAPHYLAXIS Verified 10/25/21 08:33 [From VICKS VAPORUB] From Tigan Allergy Severe ANAPHYLAXIS Uncoded 10/25/21 08:33 Plan I have reviewed the history and physical and performed a pertinent physical examination on my patient. No changes have occurred unless specified. Time Spent With Patient Time: Total time managing care of this patient today ____ minutes.
== END 2022-08-02 10:45 | disposition home or self-care (01) ==
PROVIDERS: Visit Provider Orthopaedic Surgery
PROC: (CPT 64721; principal; 2022-08-02 09:30)
DX: G56.02 Carpal tunnel syndrome, left upper limb (principal); M79.642 Pain in left hand; M19.042 Primary osteoarthritis, left hand; R20.0 Anesthesia of skin; Z88.8 Allergy status to other drugs, medicaments and biological substances; Z72.0 Tobacco use
CPT/HCPCS: 64721

== ENCOUNTER → 2022-09-04 12:25 | Outpatient (BNVA) | payer OTHER, SELFPAY | PROVIDERS: Visit Provider Orthopaedic Surgery | DX: Z13.89 Encounter for screening for other disorder (principal) ==

== ENCOUNTER 2022-10-04 09:04 | Day surgery (SDC) | payer OTHER, SELFPAY ==
[2022-10-04 12:08] VITALS: BMI 21.2
--- NOTE | 2022-10-04 12:32 | MHC.SHP ---
Pre-Procedural Eval Section A Date of Service: 10/04/22 The patient is an INPATIENT: No Changes since office visit: No Cold of Flu in the past 2 weeks, No New Medical Problems, No Changes in Medication and No Patient answered all questions The History & Physical has been completed within 30 days and I have reviewed it.: Yes Section B Chief Complaint: Carpal tunnel syndrome, recurrent Allergies: Allergies Allergy/AdvReac Type Severity Reaction Status Date / Time menthol Allergy Severe ANAPHYLAXIS Verified 09/04/22 12:32 [From Vicks Cough Drops] trimethobenzamide [Tigan] Allergy Severe Anaphylaxis Verified 10/03/22 09:54 camphor [From VICKS VAPORUB] Allergy Unknown ANAPHYLAXIS Verified 09/04/22 12:32 eucalyptus Allergy Unknown ANAPHYLAXIS Verified 09/04/22 12:32 [From VICKS VAPORUB] petrolatum,white Allergy Unknown ANAPHYLAXIS Verified 09/04/22 12:32 [From VICKS VAPORUB] turpentine oil Allergy Unknown ANAPHYLAXIS Verified 09/04/22 12:32 [From VICKS VAPORUB] Plan I have reviewed the history and physical and performed a pertinent physical examination on my patient. No changes have occurred unless specified. Time Spent With Patient Time: Total time managing care of this patient today ____ minutes.
--- NOTE | 2022-10-04 12:33 | W.PM.OPN ---
Operative Note Operative Note Date of Service: 10/04/22 Narrative: Preop diagnosis: 1. Recurrent right Carpal tunnel syndrome Postop diagnosis: same Procedure: 1. Right repeat Carpal tunnel release Surgeon: Lacy Amaya MD Anesthesia: local block using 1% lidocaine with epinephrine Findings: Thickened transverse carpal ligament. EBL: Less than 5 mL Specimens: None Complications: None Disposition: Brought to recovery room in stable condition Plan: Follow-up for 10-14 days for wound check and suture removal Indications: The patient is 57 years old, with recurrent right carpal tunnel syndrome that has been unresponsive to nonoperative management. The risks and benefits of operative treatment including but not limited to risk of damage to blood vessels, nerves, tendons, infection, persistent pain, persistent symptoms, or possible need for additional surgery were discussed with the patient and the patient wishes to proceed with surgery. She was a little anxious in preop hold, as she had been told not to eat or take her medications this morning. We gave her some juice, and I offered to have her come back another day after she takes her meds, or even to do this under general anesthesia if she would like. She said that she would be fine and wanted to proceed today. She ended up doing very well during the procedure. Procedure: Once consent was obtained a local block was performed using a combination of 1% lidocaine with epinephrine. The patient was then brought back to the operating suite and placed on the operative table in supine position. The right upper extremity was prepped and draped in a standard surgical fashion. Once assured that we had a good block, a 2.0 cm longitudinal incision was made centered over the carpal tunnel and extended in a zigzag fashion proximal to the distal wrist crease. The incision was made through the skin to the subcutaneous tissues using a #15 blade. In the proximal aspect of the incision I dissected down to the volar forearm fascia, and then made incision in the volar forearm fascia extending this distally using tenotomy scissors. The median nerve was visualized and protected. Once satisfied with our carpal tunnel release the wound was copiously irrigated with normal saline and hemostasis was obtained with a brief period of local pressure. The skin edges were reapproximated with some 5.0 nylon suture material and a sterile dressing was applied. The patient appears to have tolerated the procedure well and with no complications. All digits were well vascularized at the conclusion of the case.
[2022-10-04 14:27] VITALS: BP 137/85; PULSE 63; RESP 18; O2SAT 98
== END 2022-10-04 14:43 | disposition home or self-care (01) ==
PROVIDERS: Visit Provider Orthopaedic Surgery
PROC: (CPT 64721; principal; 2022-10-04 12:40)
DX: G56.01 Carpal tunnel syndrome, right upper limb (principal); M19.041 Primary osteoarthritis, right hand; G43.909 Migraine, unspecified, not intractable, without status migrainosus; Z88.8 Allergy status to other drugs, medicaments and biological substances; F17.210 Nicotine dependence, cigarettes, uncomplicated
CPT/HCPCS: 64721; J0171

== ENCOUNTER → 2022-10-19 09:29 | Outpatient (BNVA) | payer OTHER, SELFPAY | PROVIDERS: Visit Provider Physician Assistant | DX: Z13.89 Encounter for screening for other disorder (principal) ==

== ENCOUNTER 2023-08-06 20:43 | Inpatient (IN) | payer MEDICARE, MEDICAID, SELFPAY ==
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
--- OUTSIDE RECORDS SUMMARY | 2023-08-06 20:47 | XMS_ITS | Continuity of Care Document ---
Author Name Unknown Organization [facility] Address [address] [place] [address] [address] [place] [address]- Care Team Providers Care Reactor Service Operator Name Role Phone Child Sami ELY Primary Care Physician Encounter [facility] [place] Date(s): 09/10/22 - 10/10/22 [facility] [address] [place], [place] [address] Allergies, Adverse Reactions, Alerts Substance Reaction Severity [...] Team Personnel Name: Child Sami ELY Position: [facility] Outreach Member Role: PCP Address: Address: [address] [place] [address]- Care Team Related Persons Name: KOFI LEMOS Address: home [address] [place] [address] Name: SUMIT LOPEZ Address: home [address] [place] [address] Name: JORDAN KWON Address: home Name: KEMI KWON
--- OUTSIDE RECORDS SUMMARY | 2023-08-06 20:47 | XMS_ITS | Continuity of Care Document ---
Author Name Unknown Organization [facility] Address [address] [place] [address] [address] [place] [address]- Care Team Providers Care Rug Cleaning Supervisor Name Role Phone Child Sami ELY Primary Care Physician [place] [facility] [place]/12/22 - 01/11/[address] [place], [place] [address] Attending Physician: Jw Gallagher Admitting Physician: Jw Gallagher Referring Physician: Jw Gallagher Referring Physician: Buddy Hickey Allergies, Adverse Reactions, Alerts Substance Reaction Severity [...] Team Personnel Name: Child Sami ELY Position: S Outreach Member Role: PCP Address: Address: [address] [place] [address]- Care Team Related Persons Name: KOFI LEMOS Address: home [address] [place] [address] Name: SUMIT LOPEZ Address: home [address] [place] [address] Name: JORDAN KWON Address: home Name: KEMI KWON
--- OUTSIDE RECORDS SUMMARY | 2023-08-06 20:47 | XMS_ITS | Continuity of Care Document ---
Author Name Unknown Organization [facility] Address [address] [place] [address] [address] [place] [address]- Care Team Providers Care Manager Reporting Name Role Phone Child Sami ELY Primary Care Physician Encounter [facility] [place] Date(s): 09/12/22 - 09/19/[address] [place], [place] [address] Attending Physician: Samantha Patel MD Allergies, Adverse Reactions, Alerts Substance Reaction Severity [...] 07/12/22 Active 1Problem added by Discern Expert Vital Signs Most recent to oldest [Reference Range]: 1 Height 158 cm (09/12/22 1:28 PM) Weight 55.0 kg (09/12/22 1:28 PM) Pulse Rate [55-90 bpm] 100 bpm *H* (09/12/22 1:28 PM) Body Mass Index [18.5-24.99 kg/m2] 22.03 kg/m2 (09/12/22 1:28 PM) Blood Pressure [90-138/55-84 mm Hg] 100/ 70mm Hg (09/12/22 1:28 PM) Temperature [96.8-100.4 DegF] 97.8 DegF (09/12/22 1:28 PM) Blood pressure sites Arm, left (09/12/22 1:28 PM) Temperature Route Temporal (09/12/22 1:28 PM) Weight Obtained Via Standing scale (09/12/22 1:28 PM) Social History Social History Type Response Smoking Status Current every day edwin tafoya; Type: Cigarettes; Tobacco use times per day: 1 1/2 pack per day; entered on: 05/28/14 Sex Patient Care team information Care Team Personnel Name: Child Sami ELY Position: [facility] Outreach Member Role: PCP Address: Address: [address] [place] [address]- Care Team Related Persons Name: KOFI LEMOS Address: home [address] [place] [address] Name: SUMIT LOPEZ Address: home [address] [place] [address] Name: JORDAN KWON Address: home Name: KEMI KWON
--- OUTSIDE RECORDS SUMMARY | 2023-08-06 20:47 | XMS_ITS | Continuity of Care Document ---
Author Name Unknown Organization [facility] Address [address] [place] [address] [address] [place] [address]- Care Team Providers Care Drier Take Off Tender Name Role Phone Child Sami ELY Primary Care Physician [phone] [place] [facility] [place] 12/12/22 - 12/19/[address] [place], [place] [address] Attending Physician: Ulises Jessica NP Allergies, Adverse Reactions, Alerts Substance Reaction Severity Status Victorino Active Vicks 44 Cough Medicine Acti ve [...] recent to oldest [Reference Range]: 1 Height 160 cm (12/12/22 2:27 PM) Weight 55.6 kg (12/12/22 2:27 PM) Pulse Rate [55-90 bpm] 96 bpm *H* (12/12/22 2:27 PM) Body Mass Index [18.5-24.99 kg/m2] 21.72 kg/m2 (12/12/22 2:27 PM) Blood Pressure [90-138/55-84 mm Hg] 120/ 90mm Hg (12/12/22 2:27 PM) Temperature [96.8-100.4 DegF] 96.6 DegF *L* (12/12/22 2:27 PM) Blood pressure sites Arm, left (12/12/22 2:27 PM) Temperature Route Temporal (12/12/22 2:27 PM) Weight Obtained Via Standing scale (12/12/22 2:27 PM) Social History Social History Type Response Smoking Status Current every day edwin tafoya; Type: Cigarettes; Tobacco use times per day: 1 1/2 pack per day; entered on: 05/28/14 Sex Patient Care team information Care Team Personnel Name: Child Sami ELY Position: [facility] Outreach Member Role: PCP Address: Address: [address] [place] [address]- Care Team Related Persons Name: KOFI LEMOS Address: [address] [place] [address] Name: SUMIT LOPEZ Address: [address] [place] [address] Name: JORDAN KWON Address: home Name: KEMI KWON
--- OUTSIDE RECORDS SUMMARY | 2023-08-06 20:47 | XMS_ITS | Continuity of Care Document ---
Author Name Unknown Organization [facility] [place] [address] [address] [place] [address]- Care Team Providers Care Rehabilitation Program Manager Name Role Phone Child Sami ELY Primary Care Physician En[place] [facility] [place] Date(s): 10/05/22 - 11/04/[address] [place], [place] [address] Attending Physician: AdmJw panda Admitting Physician: AdmtrJw Referring Physician: Admtr, Ar8 Allergies, Adverse Reactions, Alerts Substance Reaction Severity [...] Team Personnel Name: Child Sami ELY Position: [facility] Outreach Member Role: PCP Address: Address: [address] [place] [address]- Care Team Related Persons Name: KOFI LEMOS Address: [address] [place] [address] Name: SUMIT LOPEZ Address: [address] [place] [address] Name: JORDAN KWON Address: home Name: KEMI KWON
--- OUTSIDE RECORDS SUMMARY | 2023-08-06 20:47 | XMS_ITS | Continuity of Care Document ---
Author Name Unknown Organization [facility] Address [address] [place] [address]- Care Team Providers Care Internet Marketing Coordinator Name Role Phone Child Sami ELY Primary Care Physician Encounter [facility] [place] Date(s): 09/25/22 - 09/25/[address] [address]- Discharge Disposition: A-D/C Walkout Attending Physician: Not on Staff, Attending MD Admitting Physician: Not on Staff, Admitting MD Referring Physician: Not on Staff, Referring MD Allergies, Adverse Reactions, Alerts Substance Reaction [...] Team Personnel Name: Child Sami ELY Position: [facility] Outreach Member Role: PCP Address: Address: [address] [place] [address]- Care Team Related Persons Name: KOFI LEMOS Address: [address] [place] [address] Name: SUMIT LOPEZ Address: home [address] [place] [address] Name: JORDAN KWON Address: home Name: KEMI KWON
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
--- OUTSIDE RECORDS SUMMARY | 2023-08-06 20:48 | XMS_ITS | Continuity of Care Document ---
Author Name Unknown Organization [facility] Address [address] [facility], [address] Floor, [address] [place] [address]- Care Team Providers Care Drill Press Operator Helper Name Role Phone Sami Boss Primary Care Physician [phone] Encounter [facility] [place] Date(s): 06/08/22 - 07/15/22 [facility] [address], [address], [address] [place] [address] Attending Physician: Not on Staff, Attending MD Referring Physician: Sami Boss Allergies, Adverse Reactions, Alerts Substance Reaction Severity [...] Team Personnel Name: Child Sami ELY Position: [facility] Outreach Member Role: PCP Address: Address: [address] [place] [address]- Care Team Related Persons Name: KOFI LEMOS Address: home [address] [place] [address] Name: SUMIT LOPEZ Address: home [address] [place] [address] Name: JORDAN KWON Address: home
--- OUTSIDE RECORDS SUMMARY | 2023-08-06 20:48 | XMS_ITS | Continuity of Care Document ---
Author Name Unknown Organization [facility] Address [address] [facility], [address] Floor, [address] [place] [address]- Care Team Providers Care Hvac Installer Name Role Phone Child Sami ELY Primary Care Physician Encounter [facility] [place] Date(s): 06/15/22 - 07/15/22 [facility] [address], [address], [address] [place] [address] Attending Physician: Jw Gallagher Admitting Physician: Jw Gallagher Referring Physician: [id number] Allergies, Adverse Reactions, Alerts Substance Reaction Severity [...] team information Care Team Personnel Name: Child SOLIS Sami Position: [facility] Outreach Member Role: PCP Address: Address: [address] [place] [address]- Care Team Related Persons Name: KOFI LEMOS Address: [address] [place] [address] Name: SUMIT LOPEZ Address: home [address] [place] [address] Name: JORDAN KWON Address: home
--- OUTSIDE RECORDS SUMMARY | 2023-08-06 20:48 | XMS_ITS | Continuity of Care Document ---
Author Name Unknown Organization [facility] Address [address] [place] [address] [address] [place] [address]- Care Team Providers Care Neurology Specialist Name Role Phone Child Sami ELY Primary Care Physician Encounter [facility] [place] Date(s): 10/01/22 - 11/04/[address] [place] [address]- Attending Physician: Samantha Patel MD Referring Physician: Not on Staff, Referring [...] Team Personnel Name: Child Sami ELY Position: [facility] Outreach Member Role: PCP Address: Address: [address] [place] [address]- Care Team Related Persons Name: KOFI LEMOS Address: [address] [place] [address] Name: SUMIT LOPEZ Address: home [address] [place] [address] Name: JORDAN KWON Address: home Name: KEMI KWON
--- NOTE | 2023-08-06 22:50 | PC.NURSE ---
There is a sealed security envelope from another facility that the patient did not want opened placed in security.
[2023-08-07] MEDS: Buprenorphine/Naloxone 8/2 mg TAB.SUBL 1 TAB SUBLINGUAL ×3 (00:21→21:31)
[2023-08-07] MEDS: Baclofen 10 MG TABLET PO ×4 (00:22→21:33)
[2023-08-07] MEDS: Topiramate 25 MG TABLET 50 MG PO (00:27)
[2023-08-07] MEDS: hydrOXYzine HCL 25 MG TABLET PO (00:28)
--- NOTE | 2023-08-07 04:31 | PC.ADMIT ---
Elida Etienne is a 57yo female admitted to the unit from [facility] ED on CV for treatment of SI, BAD, and substance abuse. She presented with substance abuse[ cocaine, Opioids and marijuanna] and migraine headaches per [facility] assessment. She reports that she has squirrel bugs in her house that are preventing her from sleeping . She does has a left orbital cellulitis, with continuous drainage from this area and currently recieving antibiotics treatment. She was easily irritable and verbally aggressive during the admission process, states that she get trigger being around male. Pt denies SI/HI, has medical history of asthma. She c/o migraine headaches, nausea and requested for Suboxone and pain meds. Suboxone 8/2mg was given along with other meds. She refused to signed any authorization forms or any paper work. Skin check done, treatment plans and safety tools initiated but yet to be sign.
[2023-08-07 06:20] VITALS: BMI 20.4
[2023-08-07] MEDS: Ondansetron ODT 4 MG TAB.RAPDIS TRANSLINGU ×2 (06:49→21:45)
[2023-08-07] MEDS: Butalb/Acetamin/Caff 50/325/40 TABLET 1 TAB PO (07:19)
[2023-08-07 08:24] VITALS: BP 128/58; PULSE 64; RESP 16; TEMP 36.1; O2SAT 98
[2023-08-07] MEDS: Sertraline HCL 50 MG TABLET PO (09:22)
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
--- NOTE | 2023-08-07 15:48 | HO.PM.IMCN ---
History of Present Illness Data of Consult Service Date: 08/07/23 Requesting physician: James Beltran Primary Care Provider: Unknown Physician HPI Reason for consult: medical h&p 57-year-old female with history of asthma, migraines, polysubstance abuse, and opiate dependence on Suboxone admitted to Psychiatry with consult placed to hospitalist service for medical H and P. Pt transferred to [facility] from [facility] ED. while in the ED, hematology and chemistry studies were unremarkable. Urine tox screen was positive for buprenorphine, cocaine, THC though patient denies any illicit drug use. She does smoke 1-1.5 packs of cigarettes on a daily basis. She has otherwise no concerns or complaints. She was started on augmentin and cipro at [facility] for left orbital cellulitis. N o fevers or visual changes. Review of Systems Review of Systems: General: No fevers, malaise, unintentional weight loss HEENT: No blurred vision, diplopia. No sore throat, nasal congestion, rhinorrhea, sinus pain, ear pain Cardiovascular: No chest pain, palpitations, or leg edema Respiratory: No shortness of breath, wheezing, cough GI: No abdominal pain, nausea, vomiting, diarrhea, constipation, melena, hematochezia : No dysuria, hematuria, increased urinary frequency, decreased urinary output MSK: No myalgia, back pain Neuro: No headaches, weakness, paresthesias Skin: No rashes or lesions [facility] Medical History Substance abuse Asthma Opioid dependence Migraine Social History Household Members: None Housing: Apartment Do you presently have visiting nurse or other home services: No Alcohol intake: never Patient Tobacco Use Status: Current everyday Tobacco user Tobacco use type: Cigarette Smoked in Last 30 Days: Yes e-Cigarette/Vaping Use: Never Used Patient Interested in Nicotine Replacement: Yes Patient Given Instructions on How to Stop Smoking: No Second Hand Smoke Exposure: No Use of substances other than those prescribed or required for medical reasons: Yes Substance Use Type: Crack/Cocaine, Marijuana and Opiates Substance Use Frequency: Daily Last Used Substance: Hours (ago) Currently Displaying Signs/Symptoms of Drug Intoxication Withdrawal: No Any prior treatment program specific to substance use: No Have you been hit, kicked, punched, or otherwise hurt by someone within the past year? 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 Sexual orientation: Unable to collect Meds Allergies Allergy/AdvReac Type Severity Reaction Status Date / Time menthol Allergy Severe ANAPHYLAXIS Verified 10/19/22 09:32 [From Vicks Cough Drops] trimethobenzamide [Tigan] Allergy Severe Anaphylaxis Verified 10/19/22 09:32 camphor [From VICKS VAPORUB] Allergy Unknown ANAPHYLAXIS Verified 10/19/22 09:32 eucalyptus Allergy Unknown ANAPHYLAXIS Verified 10/19/22 09:32 [From VICKS VAPORUB] petrolatum,white Allergy Unknown ANAPHYLAXIS Verified 10/19/22 09:32 [From VICKS VAPORUB] turpentine oil Allergy Unknown ANAPHYLAXIS Verified 10/19/22 09:32 [From VICKS VAPORUB] Active Medications: Current Medications Acetaminophen (Acetaminophen 325 Mg Tablet) 650 mg PO Q6H PRN PRN Reason: Headache/Pain Mild Scale (1-3) Al Hydroxide/Mg Hydroxide (Magnesium Hydrox/Alum Hydrox 30 Ml Oral.Susp) 30 ml PO Q6H PRN PRN Reason: Heartburn/Nausea Albuterol Sulfate (Albuterol Sulfate 90 Mcg 8 Gm Inhaler) 2 puff INHALE BID [facility] Last Admin: 08/07/23 09:24 Dose: Not Given Amoxicillin/Clavulanate Potassium (Amoxicillin/Potassium Clav 875 Mg Tablet) 875 mg PO Q12H [facility] Stop: 08/14/23 17:59 Baclofen (Baclofen 10 Mg Tablet) 10 mg PO TID [facility] Last Admin: 08/07/23 15:15 Dose: 10 mg Buprenorphine/Naloxone (Buprenorphine/Naloxone 8/2 Mg Tab.Subl) 1 tab SUBLINGUAL BID [facility] Last Admin: 08/07/23 09:22 Dose: 1 tab Erythromycin (Erythromycin Base 0.5% Oph Oin 1 Gm Tube) 1 cm EYE-LEFT QID [facility] Stop: 08/12/23 16:59 Hydroxyzine HCl (Hydroxyzine Hcl 25 Mg Tablet) 25 mg PO Q6H PRN PRN Reason: Anxiety Last Admin: 08/07/23 00:28 Dose: 25 mg Magnesium Hydroxide (Milk Of Magnesia 30 Ml Oral.Susp) 30 ml PO DAILY PRN PRN Reason: Constipation Ondansetron HCl (Ondansetron Odt 4 Mg Tab.Rapdis) 4 mg TRANSLINGU Q6H PRN PRN Reason: Nausea and Vomiting Last Admin: 08/07/23 06:49 Dose: 4 mg Quetiapine Fumarate (Quetiapine Fumarate 50 Mg Tablet) 50 mg PO BEDTIME SAMEER Last Admin: 08/07/23 00:31 Dose: Not Given Sertraline HCl (Sertraline Hcl 50 Mg Tablet) 50 mg PO DAILY [facility] Last Admin: 08/07/23 09:22 Dose: 50 mg Sumatriptan Succinate (Sumatriptan Succinate 50 Mg Tablet) 50 mg PO DAILY PRN PRN Reason: Migraine Headache Topiramate (Topiramate 25 Mg Tablet) 50 mg PO BEDTIME [facility] Last Admin: 08/07/23 00:27 Dose: 50 mg Home Medications Medication Instructions Recorded Confirmed Last Taken Type albuterol sulfate 90 mcg/actuation 0 mcg inhalation BID 10/25/21 08/06/23 Unknown History aerosol inhaler (Ventolin HFA) sertraline 50 mg tablet 50 mg PO DAILY 07/11/22 08/06/23 Unknown History amoxicillin 875 mg-potassium 1 tab PO BID 08/06/23 08/06/23 Unknown History clavulanate 125 mg tablet baclofen 10 mg tablet 10 mg PO TID 08/06/23 08/06/23 Unknown History buprenorphine 8 mg-naloxone 2 mg 20 mg sublingual DAILY 08/06/23 08/06/23 Unknown History sublingual film erythromycin 5 mg/gram (0.5 %) eye 0.5 appl ophthalmic (eye) BID 08/06/23 08/06/23 Unknown History ointment quetiapine 50 mg tablet 50 mg PO BEDTIME 08/06/23 08/06/23 Unknown History topiramate 50 mg tablet 50 mg PO BEDTIME 08/06/23 08/06/23 Unknown History Physical Exam Vital Signs and Narrative: Vital Signs: Last Vital Signs Temp 97.0 F 08/07/23 08:24 Pulse 64 08/07/23 08:24 Resp 16 08/07/23 08:24 BP 128/58 L 08/07/23 08:24 Pulse Ox 98 08/07/23 08:24 O2 Del Method Room Air 08/07/23 08:24 BMI result Body Mass Index 20.4 Constitutional - Awake and Alert, No apparent distress Eyes - PERRLA, EOMI Cardiovascular - S1S2, RRR, No edema Respiratory - Normal lung expansion, Normal respiratory effort, No respiratory distress, CTA bilaterally Gastrointestinal - NT / ND; +BS; No rebound or guarding Extremities - no calf tenderness bilaterally, no swelling Musculoskeletal - Normal inspection, normal ROM Skin - Warm/Dry Neurological - Alert & oriented x3, CN II-XII in tact, 5/5 strength BUE and BLE Psychological - Appropriate affect Assessment and Plan (1) Routine medical exam: Status: Acute Plan 57-year-old female with history of asthma, migraines, polysubstance abuse, and opiate dependence on Suboxone admitted to Psychiatry with consult placed to hospitalist service for medical H and P. #Mood disorder -plan per psychiatry #Left orbital cellulitis- improving -continue augmentin and cipro as prescribed #Substance abuse/opioid dependence -plan per psychiatry -contiinue suboxone #MIld intermittent asthma -no exacerbation -continue inhalers #Migraines -stable -continue topamax, fioricet prn (can also use sumatriptan 50mg given ongoing substance use) Thank you for allowing me to participate in this consult. Signing off at this time. Please do not hesitate to call for further questions.
[2023-08-07] MEDS: Amoxicillin/Potassium Clav 875 MG TABLET PO (18:27)
[2023-08-07] MEDS: Erythromycin Base 0.5% Oph Oin 1 GM TUBE 1 CM EYE-LEFT ×2 (18:27→21:33)
[2023-08-07 21:18] LABS: Vitamin B12 524 pg/mL (200-900)
[2023-08-07 21:31] LABS: Alanine Aminotransferase 26 U/L (0-31); Albumin Level 4.1 g/dL (3.5-5.0); Alkaline Phosphatase 88 U/L (39-117); Anion Gap 13 (12-20); Aspartate Amino Transferase 23 U/L (5-31); Bilirubin Total 0.3 mg/dL (0.0-1.0); Blood Urea Nitrogen 25 mg/dL (9-16); Calcium 9.5 mg/dL (8.4-10.2); Carbon Dioxide 27 mmol/L (22-29); Chloride 105 mmol/L (96-108); Cholesterol 205 mg/dL (<200); Creatinine Clr Calc Pharmacy 59.5; Estimated Glomerular Filt Rate > 60; Glucose Fasting 115 mg/dL (60-99); HDL Cholesterol 86 mg/dL (>40); LDL Cholesterol Calculated 90 mg/dL (<100); Potassium 4.4 mmol/L (3.3-5.1); Sodium 141 mmol/L (135-145); Thyroid Stimulating Hormone 0.71 uIU/mL (0.32-4.0); Total Protein 7.7 g/dL (6.5-8.0); Triglycerides 147 mg/dL (<150)
[2023-08-07] MEDS: SUMAtriptan succinate 50 MG TABLET PO (21:45)
[2023-08-07] MEDS: Acetaminophen 325 MG TABLET 650 MG PO (21:45)
[2023-08-07 21:49] VITALS: BP 116/56; PULSE 65; RESP 16; TEMP 36.3; O2SAT 96
[2023-08-08] MEDS: hydrOXYzine HCL 25 MG TABLET PO (03:12)
[2023-08-08] MEDS: Amoxicillin/Potassium Clav 875 MG TABLET PO (06:14)
[2023-08-08] MEDS: Acetaminophen 325 MG TABLET 650 MG PO (06:14)
[2023-08-08 07:00] VITALS: BMI 20.9
[2023-08-08 07:20] LABS: Estimated Average Glucose 114 mg/dL; Hemoglobin A1c % 5.6 % (<6.0)
[2023-08-08 07:56] VITALS: BP 117/57; PULSE 57; RESP 16; TEMP 36.4; O2SAT 96
[2023-08-08] MEDS: Buprenorphine/Naloxone 8/2 mg TAB.SUBL 1 TAB SUBLINGUAL (08:37)
[2023-08-08] MEDS: Sertraline HCL 50 MG TABLET PO (08:37)
[2023-08-08] MEDS: Erythromycin Base 0.5% Oph Oin 1 GM TUBE 1 CM EYE-LEFT (08:37)
[2023-08-08] MEDS: SUMAtriptan succinate 50 MG TABLET PO (11:01)
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
== END 2023-08-08 14:30 | disposition home or self-care (01) | DRG 885 ==
PROVIDERS: Social Worker; Admitting Provider Psychiatry & Neurology Psychiatry; Visit Provider Psychiatry & Neurology Psychiatry
DX: F29 Unspecified psychosis not due to a substance or known physiological condition (principal); F11.20 Opioid dependence, uncomplicated; H05.012 Cellulitis of left orbit; F17.210 Nicotine dependence, cigarettes, uncomplicated; J45.20 Mild intermittent asthma, uncomplicated; G43.909 Migraine, unspecified, not intractable, without status migrainosus; Z71.6 Tobacco abuse counseling; Z79.899 Other long term (current) drug therapy
CPT/HCPCS: 36415; 80053; 80061; 82607; 83036; 84443

== ENCOUNTER → 2023-08-06 20:43 | Outpatient (BNV) | payer MEDICARE, MEDICAID, SELFPAY | PROVIDERS: Admitting Provider Psychiatry & Neurology Psychiatry; Visit Provider Physician Assistant | DX: H05.012 Cellulitis of left orbit (principal); J45.20 Mild intermittent asthma, uncomplicated; G43.009 Migraine without aura, not intractable, without status migrainosus | CPT/HCPCS: 99222 ==

== ENCOUNTER → 2023-08-06 20:43 | Outpatient (BNV) | payer MEDICARE, MEDICAID, SELFPAY | PROVIDERS: Admitting Provider Psychiatry & Neurology Psychiatry; Visit Provider Psychiatry & Neurology Psychiatry | DX: F29 Unspecified psychosis not due to a substance or known physiological condition (principal) | CPT/HCPCS: 90792; 99239 ==

== ENCOUNTER 2023-11-29 06:37 | Emergency (ER) | payer OTHER, SELFPAY ==
[2023-11-29 06:47] VITALS: BP 101/40; PULSE 88; RESP 16; TEMP 37.4; O2SAT 96; BMI 21.0
[2023-11-29 07:11] LABS: MANUAL DIFF FLAG NO
[2023-11-29 07:23] LABS: Basophils Percent Auto 0.1 % (0-2); Eosinophils Absolute Auto 0.1 X10*3/uL (0.0-0.4); Hematocrit 36.3 % (37.0-47.0); Hemoglobin 12.2 g/dl (12.0-16.0); Imm Gran Abs Auto 0.01 X10*3/uL (0.00-0.03); Imm Gran Pct Auto 0.1 % (0.0-0.4); Lymphocytes Absolute Auto 0.6 X10*3/uL (1.2-4.9); Mean Corpuscular HGB Conc 33.6 g/dl (31.0-35.0); Mean Corpuscular Hemoglobin 29.5 pg (27.0-33.0); Mean Corpuscular Volume 87.9 fL (80.0-98.0); Mean Platelet Volume 9.7 fL (9.4-12.3); Monocytes Absolute Auto 0.6 X10*3/uL (0.1-1.2); Monocytes Percent Auto 8.2 % (2-11); Neutrophils Absolute Auto 5.6 x10*3/uL (2.0-8.3); Neutrophils Percent Auto 81.6 % (45-73); Platelet Count 177 X10*3/uL (160-400); Red Blood Count 4.13 X10*6/uL (4.20-5.50); Red Cell Distribution Width 12.4 % (11.0-16.0); White Blood Count 6.8 X10*3/uL (4.8-10.8)
[2023-11-29 07:29] LABS: Alanine Aminotransferase 17 U/L (0-31); Albumin Level 3.9 g/dL (3.5-5.0); Alkaline Phosphatase 86 U/L (39-117); Anion Gap 11 (12-20); Aspartate Amino Transferase 23 U/L (5-31); Bilirubin Total 0.4 mg/dL (0.0-1.0); Blood Urea Nitrogen 14 mg/dL (9-16); Calcium 8.8 mg/dL (8.4-10.2); Carbon Dioxide 28 mmol/L (22-29); Chloride 104 mmol/L (96-108); Creatinine Clr Calc Pharmacy 56.4; Estimated Glomerular Filt Rate > 60; Glucose Random 135 mg/dL (60-115); Potassium 3.4 mmol/L (3.3-5.1); Sodium 140 mmol/L (135-145)
[2023-11-29 07:30] LABS: COVID-19 Test Negative (Negative); IDNOW Serial# 08D9AD1C; IDNOW Serial# 152EDE1D; Influenza A Negative (Negative); Influenza B2 Negative (Negative)
--- NOTE | 2023-11-29 08:29 | ED_ITS ---
HPI - General Adult General Chief complaint: General Medical Stated complaint: gen med Time Seen by Provider: 11/29/23 08:28 Source: patient Mode of arrival: ambulatory Limitations: no limitations History of Present Illness HPI narrative: 58-year-old female with a history of asthma, migraines, psychiatric disorder who presents emergency department for evaluation of migraine headache. The patient states that she gets frequent migraine headaches. Patient states she has had an intermittent migraine headache over the last 2-3 days. She states that the headache is located on the right side of her head, the headache as a pressure- like pain which is 10/10. She has had associated nausea and vomiting. Patient states she does smoke 1 pack of cigarettes per day and gets frequent bronchitis. She states she has had a cough productive of green sputum. She has had intermittent chest pain and shortness of breath as well. She denied fever, chills, diarrhea. Patient states she has had to come to the emergency department the past for IV medications for headaches. Related Data Home Medications ?Medication ?Instructions ?Recorded ?Confirmed albuterol sulfate 90 mcg/actuation 0 mcg inhalation BID 10/25/21 08/06/23 aerosol inhaler (Ventolin HFA) sertraline 50 mg tablet 50 mg PO DAILY 07/11/22 08/06/23 baclofen 10 mg tablet 10 mg PO TID 08/06/23 08/06/23 buprenorphine 8 mg-naloxone 2 mg 20 mg sublingual DAILY 08/06/23 08/06/23 sublingual film quetiapine 50 mg tablet 50 mg PO BEDTIME 08/06/23 08/06/23 topiramate 50 mg tablet 50 mg PO BEDTIME 08/06/23 08/06/23 Previous Rx's ?Medication ?Instructions ?Recorded fwexypnpki-zhtrbmspvjjul-ktpmksnv 1 cap PO Q6H PRN pain #14 caps 03/19/21 50 mg-300 mg-40 mg capsule (Fioricet) ibuprofen 600 mg tablet 600 mg PO Q6-8H PRN pain #10 tabs 10/04/22 amoxicillin 875 mg-potassium 1 tab PO BID 12 days #24 tabs 08/08/23 clavulanate 125 mg tablet ciprofloxacin HCl 250 mg tablet 250 mg PO Q12H 12 days #24 tabs 08/08/23 (Cipro) erythromycin 5 mg/gram (0.5 %) eye 0.5 appl ophthalmic (eye) BID 5 08/08/23 ointment days #5 grams llthewm-dmkacfdcwgppb-ytotldhq 250 2 tab PO Q6H PRN headache #30 tabs 11/29/23 mg-250 mg-65 mg tablet (Excedrin Migraine) diphenhydramine HCl 25 mg capsule 50 mg (2 x 25 mg) PO Q6H PRN 11/29/23 headache, nausea, vomiting #30 caps metoclopramide HCl 10 mg tablet 10 mg PO Q6H PRN nausea and 11/29/23 (Reglan) vomiting #14 tabs Allergies Allergy/AdvReac Type Severity Reaction Status Date / Time menthol Allergy Severe ANAPHYLAXIS Verified 11/29/23 06:49 [From Vicks Cough Drops] trimethobenzamide [Tigan] Allergy Severe Anaphylaxis Verified 11/29/23 06:49 camphor [From VICKS VAPORUB] Allergy Unknown ANAPHYLAXIS Verified 11/29/23 06:49 eucalyptus Allergy Unknown ANAPHYLAXIS Verified 11/29/23 06:49 [From VICKS VAPORUB] petrolatum,white Allergy Unknown ANAPHYLAXIS Verified 11/29/23 06:49 [From VICKS VAPORUB] turpentine oil Allergy Unknown ANAPHYLAXIS Verified 11/29/23 06:49 [From VICKS VAPORUB] Review of Systems 2 Review of Systems: Yes all other systems are reviewed and are negative [facility] Past Medical History [facility] Narrative: Social history: The patient smokes 1/2 pack cigarettes per day times 40 years. She denies alcohol use. She smokes marijuana daily. 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 Sexual orientation: Unable to collect Physical Exam ED Vital Signs: Vital Signs - 24 hr 11/29/23 06:47 11/29/23 11:01 Temperature 99.4 F 97.9 F Pulse Rate 88 58 Respiratory Rate 16 14 Blood Pressure 101/40 L 98/57 L Pulse Oximetry 96 93 Oxygen Delivery Method Room Air Room Air BMI result Body Mass Index 21.0 Vital signs were normal Exam: General: Awake, alert in no distress Head: Normocephalic, atraumatic EENT: PERRL, Lids normal, sclera normal, conjunctiva normal, nose normal , ears normal, throat without erythema or exudates Neck: Supple, no adenopathy Lung: breath sounds symmetric, no wheezing, rales or rhonchi Chest: symmetric movement, nontender Heart: regular rate and rhythm, normal S1, S2 no murmurs or rubs Abdomen: soft, non-tender, nondistended, normal bowel sounds Back: no vertebral tenderness, no CVAT Extremities: no deformities, moves all extremities symmetrically Neuro: Awake, alert, oriented, normal speech, cranial nerves intact, moves all extremities symmetrically Psych: Pleasant, cooperative Medications Administered Discontinued Medications Generic Name Dose Route Start Last Admin Trade Name Jaisonq PRN Reason Stop Dose Admin Diphenhydramine HCl 50 mg 11/29/23 09:02 11/29/23 09:38 Diphenhydramine Hcl 50 Mg/Ml Vial IVPUSH 11/29/23 09:03 50 mg ONCE STA Administration Sodium Chloride 1,000 mls @ 999 mls/hr 11/29/23 09:02 11/29/23 13:02 Ns IV 11/29/23 10:02 Infused .Q1H1M STA Infusion Ketorolac Tromethamine 15 mg 11/29/23 09:02 11/29/23 09:37 Ketorolac Tromethamine 15 Mg/Ml Vial IVPUSH 11/29/23 09:03 15 mg ONCE STA Administration Metoclopramide HCl 10 mg 11/29/23 09:02 11/29/23 09:39 Metoclopramide Hcl 10 Mg/2 Ml Vial IVPUSH 11/29/23 09:03 10 mg ONCE STA Administration Medical Decision Making Medical Decision Making MDM Narrative: 58-year-old female with a history of asthma, migraines, psychiatric disorder who presents emergency department for evaluation of migraine headache. Describes the headache as a right-sided pressure-like pain which is been intermittent, associated with nausea, vomiting and is 10/10. Patient also complains of a productive cough, chest pain and shortness of breath. Vital signs were normal. Physical examination was unremarkable. Differential diagnosis: ?Includes but is not limited to migraine headache, bronchitis, pneumonia, viral syndrome, anemia, electrolyte abnormalities Following evaluation was ordered: CBC, CMP, COVID-19, influenza Patient was initially treated with the following: Normal saline IV x1 L, Toradol 15 mg IV, Reglan 10 mg IV and Benadryl 50 mg IV Course: 912 My interpretation patient's laboratory evaluation as follows: CBC was normal. CMP was normal except for an elevated glucose of 135. COVID-19 influenza were negative 14:31 Patient is feeling significantly better after the above treatment Patient's symptoms are consistent with her migraine syndrome. She was started on the following regimen for her migraines Reglan 10 mg, Benadryl 50 mg, Excedrin migraine 2 tablets every 6 hours as needed. She was given printed and verbal instructions discharged home Admission/Observation Consideration of admission/observation: Escalation of care including admission/observation considered Lab Data MDM Lab Attestation statement: I reviewed the patient's lab results. 11/29/23 07:07 11/29/23 07:07 Labs: Lab Results 11/29/23 Range/Units 07:07 WBC 6.8 (4.8-10.8) X10*3/uL RBC 4.13 L (4.20-5.50) X10*6/uL Hgb 12.2 (12.0-16.0) g/dl Hct 36.3 L (37.0-47.0) % MCV 87.9 (80.0-98.0) fL MCH 29.5 (27.0-33.0) pg MCHC 33.6 (31.0-35.0) g/dl RDW 12.4 (11.0-16.0) % Plt Count 177 (160-400) X10*3/uL MPV 9.7 (9.4-12.3) fL Immature Gran % (Auto) 0.1 (0.0-0.4) % Neut % (Auto) 81.6 H (45-73) % Lymph % (Auto) 9.0 L (20-40) % Wheeler % (Auto) 8.2 (2-11) % Eos % (Auto) 1.0 (0-4) % Baso % (Auto) 0.1 (0-2) % Lymph # (Auto) 0.6 L (1.2-4.9) X10*3/uL Wheeler # (Auto) 0.6 (0.1-1.2) X10*3/uL Eos # (Auto) 0.1 (0.0-0.4) X10*3/uL Baso # (Auto) 0.0 (0.0-0.2) X10*3/uL Abs Immat Gran (auto) 0.01 (0.00-0.03) X10*3/uL Absolute Neuts (auto) 5.6 (2.0-8.3) x10*3/uL Absolute Nucleated RBC 0.000 (0.0-0.012) X10*3/uL Nucleated RBC % (auto) 0.0 (0.0-0.2) /100WBC Sodium 140 (135-145) mmol/L Potassium 3.4 (3.3-5.1) mmol/L Chloride 104 (96-108) mmol/L Carbon Dioxide 28 (22-29) mmol/L Anion Gap 11 L (12-20) BUN 14 (9-16) mg/dL Creatinine 0.88 (0.5-1.4) mg/dL Estim Creat Clear Calc 56.4 Estimated GFR > 60 Random Glucose 135 H (60-115) mg/dL Calcium 8.8 D (8.4-10.2) mg/dL Total Bilirubin 0.4 (0.0-1.0) mg/dL AST 23 (5-31) U/L ALT 17 (0-31) U/L Alkaline Phosphatase 86 (39-117) U/L Total Protein 7.0 (6.5-8.0) g/dL Albumin 3.9 (3.5-5.0) g/dL COVID-19 ([facility]) Negative (Negative) COVID-19 Clin Com See Note Influenza Type A ([facility]) Negative (Negative) Influenza Type B ([facility]) Negative (Negative) Influenza A & B Note See Note Prescription Management I considered prescription management with: Pain Medication Chronic Conditions Patient?s care impacted by: Other (Migraine syndrome) Discharge Plan Discharge Clinical Impression: Migraine Qualifiers: Migraine type: unspecified Status migrainosus presence: without status migrainosus Intractability: not intractable Qualified Code(s): G43.909 - Migraine, unspecified, not intractable, without status migrainosus Patient Disposition: Home, Self-Care Additional Instructions: Your blood work was unremarkable. Your COVID-19, RSV and influenza tests were negative. Your symptoms are consistent with a migraine. I want you to take the following 3 medications together every 6 hours as needed for headache, nausea or vomiting. ? Reglan (metoclopramide) in 10 mg, 1 pill Benadryl 25 mg, 2 pills Excedrin migraine, 2 pills. After you take these medications, lie down in a dark quiet room and try to fall asleep. ?These medications will make you sleepy, do not drive or work after taking these medications. Follow-up with your doctor in 2 days. Please return to the emergency department if your symptoms get worse or if you develop any symptoms that are concerning to you. Prescriptions: New diphenhydramine HCl 25 mg capsule 50 mg PO Q6H PRN (Reason: headache, nausea, vomiting) Qty: 30 0RF Excedrin Migraine 250-250-65 mg tablet 2 tab PO Q6H PRN (Reason: headache) Qty: 30 0RF metoclopramide HCl [Reglan] 10 mg tablet 10 mg PO Q6H PRN (Reason: nausea and vomiting) Qty: 14 0RF No Action zlthjoyytp-xnljplqotigmi-tmtc [Fioricet] 50-300-40 mg capsule 1 cap PO Q6H PRN (Reason: pain) Qty: 14 0RF ibuprofen 600 mg tablet 600 mg PO Q6-8H PRN (Reason: pain) Qty: 10 0RF baclofen 10 mg tablet 10 mg PO TID buprenorphine-naloxone 8-2 mg film 20 mg sublingual DAILY topiramate 50 mg tablet 50 mg PO BEDTIME quetiapine 50 mg tablet 50 mg PO BEDTIME ciprofloxacin HCl [Cipro] 250 mg tablet 250 mg PO Q12H 12 Days Qty: 24 0RF erythromycin 5 mg/gram (0.5 %) ointment 0.5 appl ophthalmic (eye) BID 5 Days Qty: 5 0RF amoxicillin-pot clavulanate 875-125 mg tablet 1 tab PO BID 12 Days Qty: 24 0RF albuterol sulfate [Ventolin HFA] 90 mcg/actuation HFA aerosol inhaler 0 mcg inhalation BID sertraline 50 mg tablet 50 mg PO DAILY Print Language: Serbian
[2023-11-29] MEDS: Ketorolac Tromethamine 15 MG/ML VIAL IVPUSH (09:37)
[2023-11-29] MEDS: diphenhydrAMINE HCL 50 MG/ML VIAL IVPUSH (09:38)
[2023-11-29] MEDS: Metoclopramide HCl 10 MG/2 ML VIAL IVPUSH (09:39)
[2023-11-29] MEDS: 0.9 % Sodium Chloride 1,000 ML 999 ML IV (09:40)
[2023-11-29 11:01] VITALS: BP 98/57; PULSE 58; RESP 14; TEMP 36.6; O2SAT 93
[2023-11-29 14:36] VITALS: BP 115/57; PULSE 61; RESP 18; TEMP 36.5; O2SAT 97
[2023-11-29 15:02] VITALS: BP 115/57; PULSE 61; RESP 18; TEMP 36.5; O2SAT 97
== END 2023-11-29 15:03 | disposition home or self-care (01) ==
PROVIDERS: Emergency Provider Emergency Medicine Emergency Medical Services
DX: G43.909 Migraine, unspecified, not intractable, without status migrainosus (principal); J45.909 Unspecified asthma, uncomplicated; F17.210 Nicotine dependence, cigarettes, uncomplicated; Z11.52 Encounter for screening for COVID-19
CPT/HCPCS: 80053; 85025; 87502; 87635; 96361; 96374; 96375; 99284; J1200; J1885; J2765

== ENCOUNTER 2024-02-08 17:41 | Emergency (ER) | payer OTHER, MEDICARE, SELFPAY ==
--- NOTE | ~2024-02-08 | XR_ITS ---
EXAMINATION: XR LUMBOSACRAL SPINE CLINICAL INFORMATION: Right-sided low back pain down the right leg. COMPARISON: None available. TECHNIQUE: Three views of the lumbosacral spine. FINDINGS: There is mild dextro scoliosis lumbar spine. Mild loss of L4-L5 and L5-S1 disc heights with ventral and lateral spondylosis L2-L3 through L5-S1 disc level. No visible acute fracture or dislocation. The SI joints are symmetrical and normal. The soft tissues are normal. XR/XR lumbar spine 2-3V IMPRESSION: Mild dextroscoliosis with mild spondylosis lumbar spine. No visible acute fracture, dislocation or subluxation seen.
[2024-02-08 17:51] VITALS: BP 134/69; PULSE 87; RESP 18; TEMP 36.6; O2SAT 98; BMI 21.5
--- NOTE | 2024-02-08 17:51 | ED_ITS ---
HPI - Back Pain/Injury General Chief Complaint: General Medical Stated Complaint: headache, sore throat, back pain Time Seen by Provider: 02/08/24 19:30 Source: patient Mode of arrival: ambulatory Limitations: no limitations History of Present Illness ED Provider: misty TERAN Narrative: Patient is a 58-year-old female presenting to the ED with complaint of right lower back/hip pain radiating down right leg since this morning. 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 Denies bowel or bladder incontinence. Denies saddle anesthesia. Also migraine headache for the past 4 days, photophobia, nausea. States feels like her typical migraines. Has not taken any medications at home for her headache. Denies vomiting. Denies fevers. Denies vision changes. 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 MD elicited complaint: back pain Pertinent past history: prior back pain Onset (ago): hour(s) Timing: constant Severity: severe Pain scale (0-10): 10 Similar Symptoms Previously: Yes Quality: burning Location: lumbar spine Radiation: right upper leg Relieving factors: none Context: other (after lifting patients last night) Related Data Home Medications ?Medication ?Instructions ?Recorded ?Confirmed albuterol sulfate 90 mcg/actuation 0 mcg inhalation BID 10/25/21 08/06/23 aerosol inhaler (Ventolin HFA) sertraline 50 mg tablet 50 mg PO DAILY 07/11/22 08/06/23 baclofen 10 mg tablet 10 mg PO TID 08/06/23 08/06/23 buprenorphine 8 mg-naloxone 2 mg 20 mg sublingual DAILY 08/06/23 08/06/23 sublingual film quetiapine 50 mg tablet 50 mg PO BEDTIME 08/06/23 08/06/23 topiramate 50 mg tablet 50 mg PO BEDTIME 08/06/23 08/06/23 Previous Rx's ?Medication ?Instructions ?Recorded yhlfasgbgx-hihcxonhkwsnt-tnfsxymo 1 cap PO Q6H PRN pain #14 caps 03/19/21 50 mg-300 mg-40 mg capsule (Fioricet) ibuprofen 600 mg tablet 600 mg PO Q6-8H PRN pain #10 tabs 10/04/22 amoxicillin 875 mg-potassium 1 tab PO BID 12 days #24 tabs 08/08/23 clavulanate 125 mg tablet ciprofloxacin HCl 250 mg tablet 250 mg PO Q12H 12 days #24 tabs 08/08/23 (Cipro) erythromycin 5 mg/gram (0.5 %) eye 0.5 appl ophthalmic (eye) BID 5 08/08/23 ointment days #5 grams vjtsahg-yoxlukuuqvtwv-xyfssxcf 250 2 tab PO Q6H PRN headache #30 tabs 11/29/23 mg-250 mg-65 mg tablet (Excedrin Migraine) diphenhydramine HCl 25 mg capsule 50 mg (2 x 25 mg) PO Q6H PRN 11/29/23 headache, nausea, vomiting #30 caps metoclopramide HCl 10 mg tablet 10 mg PO Q6H PRN nausea and 11/29/23 (Reglan) vomiting #14 tabs cyclobenzaprine 7.5 mg tablet 7.5 mg PO BID PRN muscle spasm #8 02/08/24 tabs lidocaine 5 % topical patch 1 patch topical DAILY #15 ea 02/08/24 prednisone 20 mg tablet 40 mg (2 x 20 mg) PO DAILY #10 tabs 02/08/24 Allergies Allergy/AdvReac Type Severity Reaction Status Date / Time menthol Allergy Severe ANAPHYLAXIS Verified 02/08/24 17:52 [From Vicks Cough Drops] trimethobenzamide [Tigan] Allergy Severe Anaphylaxis Verified 02/08/24 17:52 camphor [From VICKS VAPORUB] Allergy Unknown ANAPHYLAXIS Verified 02/08/24 17:52 eucalyptus Allergy Unknown ANAPHYLAXIS Verified 02/08/24 17:52 [From VICKS VAPORUB] petrolatum,white Allergy Unknown ANAPHYLAXIS Verified 02/08/24 17:52 [From VICKS VAPORUB] turpentine oil Allergy Unknown ANAPHYLAXIS Verified 02/08/24 17:52 [From VICKS VAPORUB] Review of Systems Review of Systems: As per HPI. Yes all other systems are reviewed and are negative Constitutional: Constitutional: Reports as per HPI PMF Past Medical History Medical History Substance abuse Asthma Opioid dependence Migraine Social History Social History Household Members: None Housing: Apartment Do you presently have visiting nurse or other home services: No Alcohol intake: never Patient Tobacco Use Status: Current everyday Tobacco user Tobacco use type: Cigarette e-Cigarette/Vaping Use: Never Used Second Hand Smoke Exposure: No Substance Use Type: Crack/Cocaine, Marijuana and Opiates Advance Directives: No Advance Directives Information Provided: No Do you have a plan to hurt others: No Plan service: No Current occupational status: disabled 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 Blood pressure normal. Heart rate normal. Respiratory rate normal. Temperature normal. Oxygen saturation normal. Const: General: cooperative, healthy appearing and no acute distress Orientation/consciousness: oriented to person, oriented to place, oriented to time and patient oriented x3 Limitations: no limitations HEENT: Head: Yes normocephalic and Yes atraumatic Ears: external ears normal General nose exam: Normal external nose present Face and sinus: Yes face symmetric Mouth: oropharynx normal and moist mucous membranes Throat: Yes uvula midline Eyes: Pupils: Equal, round and reactive pupils present Neck: Neck: Yes normal visual inspection, Yes no meningeal signs and Yes supple Resp: Effort & Inspection: normal respiratory effort and able to speak in complete sentences Auscultation: clear to auscultation bilaterally Cardio: Rate: regular rate Rhythm: regular rhythm Heart sounds: S1 normal heart sound present and S2 normal heart sound present GI: Palpation (GI): Soft to palpation and nontender Auscultation: normoactive bowel sounds : General: Yes no CVA tenderness Back/Spine/Pelvis: Back: no CVA tenderness Thoracic/Lumbar Spine: thoraco-lumbar ROM normal, pain with thoraco-lumbar ROM, No thoraco-lumbar spasm, No thoracic spinal tenderness, No lumbar spinal tenderness and straight leg raise positive right Skin: General skin exam: elasticity normal and turgor normal Neuro: General: oriented to person, oriented to place, oriented to time, patient oriented x3, gait normal, tone normal, moves all extremities, Normal light touch and pain sensation, no meningeal signs, no focal motor deficits, CN's II-XI intact bilaterally and deep tendon reflexes 2+ bilaterally Cranial nerves: Yes Equal, round and reactive pupils present Cognition (Neuro): normal cognition Motor exam (neuro): 5/5 motor strength present throughout, no tremor noted and Normal motor muscle tone present throughout Extrem: General: Yes full ROM, Yes no pedal edema and Yes no calf tenderness Psych: Mental Status: mental status grossly normal Affect: normal affect Thought process: Normal thought process present Medications Administered Generic Name Dose Route Start Last Admin Trade Name Freq PRN Reason Stop Dose Admin Sodium Chloride 1,000 mls @ 999 mls/hr 02/08/24 19:45 02/08/24 20:07 Ns IV 02/08/24 20:45 999 mls/hr .Q1H1M SAMEER Administration Discontinued Medications Generic Name Dose Route Start Last Admin Trade Name Freq PRN Reason Stop Dose Admin Diphenhydramine HCl 25 mg 02/08/24 19:36 02/08/24 20:13 Diphenhydramine Hcl 50 Mg/Ml Vial IVPUSH 02/08/24 19:37 25 mg ONCE ONE Administration Ketorolac Tromethamine 15 mg 02/08/24 19:36 02/08/24 20:12 Ketorolac Tromethamine 15 Mg/Ml Vial IVPUSH 02/08/24 19:37 15 mg ONCE ONE Administration Methylprednisolone Sodium Succinate 60 mg 02/08/24 19:36 02/08/24 20:10 Methylprednisolone Sod Succ 125 Mg/2 Ml Vial IVPUSH 02/08/24 19:37 60 mg ONCE ONE Administration Metoclopramide HCl 10 mg 02/08/24 19:36 02/08/24 20:13 Metoclopramide Hcl 10 Mg/2 Ml Vial IVPUSH 02/08/24 19:37 10 mg ONCE ONE Administration Medical Decision Making Medical Decision Making [facility] Narrative: Patient is a 58-year-old female presenting to the ED with complaint of right lower back/hip pain radiating down right leg since this morning as well as migraine for the past 4 days. On exam patient is awake, A+Ox3, VS WNL, afebrile, normal neurological exam without focal deficits, physical exam findings as above. Given reported symptoms and physical exam findings, initial differential includes migraine headache, lumbar radiculopathy, lumbar compression fracture, degenerative disc disease, disc herniation, spinal stenosis, spondylosis. Do not suspect ICH/SAH, acute glaucoma, carotid artery dissection, CO poisoning, encephalitis, meningitis, preeclampsia, pseudotumor, temporal arteritis/giant cell arteritis. Less likely vertebral fracture. Do not suspect malignancy/mass, SEA, cauda equina/cord compression. X-ray notable for mild spondylosis without acute fracture or subluxation. My interpretation is in agreement with the radiologist's interpretation. Results discussed with patient and all questions answered. Migraine improved with medications given in the ED. Instructed patient to follow up with PCP. Will discharge on short course of prednisone for lumbar radiculopathy as well as topical lidocaine patches. Return precautions discussed at bedside. Patient verbalized understanding of and agreement with plan of care. Differential Diagnosis Differential Diagnoses: The differential diagnosis associated with the presentation includes as per mdm Independent Interpretation I performed an independent interpretation of an: Plain X-Ray Interpretation: Lumbar x-ray shows mild spondylosis without acute fracture or subluxation. Radiology Impression Discussion of test interpretation with radiology: I have reviewed the radiologist's reading. Radiologist Impression: XR/XR lumbar spine 2-3V IMPRESSION: Mild dextroscoliosis with mild spondylosis lumbar spine. No visible acute fracture, dislocation or subluxation seen. Mil External Record Review External record reviewed: Inpatient record, Office record and Outpatient record Prescription Management I considered prescription management with: Pain Medication and Other Discharge Plan Discharge Clinical Impression: Migraine, Acute lumbar radiculopathy Patient Disposition: Home, Self-Care Instructions: Migraine Headache (ED), Lumbar Radiculopathy (ED) Additional Instructions: You were evaluated in the emergency department today for back pain and headache. Your evaluation did not show signs of medical conditions requiring emergent intervention at this time. We recommended that you use ibuprofen or Tylenol per package directions every 6 hours as needed for pain. If necessary, you can alternate these medications so that you take one medication every 3 hours. For instance, at noon take ibuprofen, then at 3:00 p.m. take Tylenol, then at 6:00 p.m. take ibuprofen. You have been prescribed a short course of steroids to decrease inflammation of the nerves in your back. You have been prescribed 5% topical lidocaine patches which you can wear for up to 12 hours in a 24 hour period. Do not apply heat directly over the patches. You are also being prescribed a muscle relaxer which you can use every 8 hours as needed, do not take this medication with alcohol as it can cause excessive drowsiness. Please schedule an appointment for follow-up with your primary care physician this week for further evaluation of your symptoms. Return to the emergency department if you experience worsening back pain, difficulty walking, fevers, numbness, tingling, incontinence, groin numbness or tingling, or any other concerning symptoms. Prescriptions: New prednisone 20 mg tablet 40 mg PO DAILY Qty: 10 0RF lidocaine 5 % adhesive patch,medicated 1 patch topical DAILY Qty: 15 0RF Rx Instructions: leave on most painful area for up to 12 hrs cyclobenzaprine 7.5 mg tablet 7.5 mg PO BID PRN (Reason: muscle spasm) Qty: 8 0RF No Action iaqfjkzqsy-qmimdnawuhxhl-xtvo [Fioricet] 50-300-40 mg capsule 1 cap PO Q6H PRN (Reason: pain) Qty: 14 0RF ibuprofen 600 mg tablet 600 mg PO Q6-8H PRN (Reason: pain) Qty: 10 0RF baclofen 10 mg tablet 10 mg PO TID buprenorphine-naloxone 8-2 mg film 20 mg sublingual DAILY topiramate 50 mg tablet 50 mg PO BEDTIME quetiapine 50 mg tablet 50 mg PO BEDTIME ciprofloxacin HCl [Cipro] 250 mg tablet 250 mg PO Q12H 12 Days Qty: 24 0RF erythromycin 5 mg/gram (0.5 %) ointment 0.5 appl ophthalmic (eye) BID 5 Days Qty: 5 0RF amoxicillin-pot clavulanate 875-125 mg tablet 1 tab PO BID 12 Days Qty: 24 0RF diphenhydramine HCl 25 mg capsule 50 mg PO Q6H PRN (Reason: headache, nausea, vomiting) Qty: 30 0RF Excedrin Migraine 250-250-65 mg tablet 2 tab PO Q6H PRN (Reason: headache) Qty: 30 0RF metoclopramide HCl [Reglan] 10 mg tablet 10 mg PO Q6H PRN (Reason: nausea and vomiting) Qty: 14 0RF albuterol sulfate [Ventolin HFA] 90 mcg/actuation HFA aerosol inhaler 0 mcg inhalation BID sertraline 50 mg tablet 50 mg PO DAILY Print Language: Korean
[2024-02-08] MEDS: 0.9 % Sodium Chloride 1,000 ML 999 ML IV (20:07)
[2024-02-08] MEDS: methylPREDNISolone Sod Succ 125 MG/2 ML VIAL 60 MG IVPUSH (20:10)
[2024-02-08] MEDS: Ketorolac Tromethamine 15 MG/ML VIAL IVPUSH (20:12)
[2024-02-08] MEDS: diphenhydrAMINE HCL 50 MG/ML VIAL 25 MG IVPUSH (20:13)
[2024-02-08] MEDS: Metoclopramide HCl 10 MG/2 ML VIAL IVPUSH (20:13)
[2024-02-08 20:57] VITALS: BP 106/62; PULSE 62; RESP 17; TEMP 36.6; O2SAT 96
[2024-02-08 21:21] VITALS: BP 106/62; PULSE 62; RESP 17; TEMP 36.6
[2024-02-08 22:18] VITALS: BP 106/62; PULSE 62; RESP 17; TEMP 36.6; O2SAT 96
== END 2024-02-08 22:20 | disposition home or self-care (01) ==
PROVIDERS: Emergency Provider Student in an Organized Health Care Education/Training Program
DX: G43.909 Migraine, unspecified, not intractable, without status migrainosus (principal); M54.16 Radiculopathy, lumbar region; F17.210 Nicotine dependence, cigarettes, uncomplicated
CPT/HCPCS: 72100; 96374; 96375; 99284; J1200; J1885; J2765; J2919

== ENCOUNTER 2024-05-17 00:51 | Emergency (ER) | payer OTHER, SELFPAY ==
[2024-05-17 00:56] VITALS: BP 101/42; PULSE 93; RESP 16; TEMP 36.4; O2SAT 95; BMI 20.8
[2024-05-17 03:03] VITALS: BP 104/67; PULSE 75; RESP 16; TEMP 36.9; O2SAT 99
--- NOTE | 2024-05-17 03:21 | ED_ITS ---
HPI - General Adult General Chief complaint: Headache Stated complaint: migraine Time Seen by Provider: 05/17/24 03:20 History of Present Illness ED Provider: Ragini TERAN narrative: The patient is a 58-year-old person with a history of migraine headaches who says they have had a migraine for the last 5 days. The patient is also concerned because their dog of leptospirosis and they has been told that they are risk of viry leptospirosis. They are requesting testing regarding leptospirosis Related Data Home Medications ?Medication ?Instructions ?Recorded ?Confirmed albuterol sulfate 90 mcg/actuation 0 mcg inhalation BID 10/25/21 08/06/23 aerosol inhaler (Ventolin HFA) sertraline 50 mg tablet 50 mg PO DAILY 07/11/22 08/06/23 baclofen 10 mg tablet 10 mg PO TID 08/06/23 08/06/23 buprenorphine 8 mg-naloxone 2 mg 20 mg sublingual DAILY 08/06/23 08/06/23 sublingual film quetiapine 50 mg tablet 50 mg PO BEDTIME 08/06/23 08/06/23 topiramate 50 mg tablet 50 mg PO BEDTIME 08/06/23 08/06/23 Previous Rx's ?Medication ?Instructions ?Recorded ezrrvhredw-rgqldbdqdkitn-qyccnooe 1 cap PO Q6H PRN pain #14 caps 03/19/21 50 mg-300 mg-40 mg capsule (Fioricet) ibuprofen 600 mg tablet 600 mg PO Q6-8H PRN pain #10 tabs 10/04/22 amoxicillin 875 mg-potassium 1 tab PO BID 12 days #24 tabs 08/08/23 clavulanate 125 mg tablet ciprofloxacin HCl 250 mg tablet 250 mg PO Q12H 12 days #24 tabs 08/08/23 (Cipro) erythromycin 5 mg/gram (0.5 %) eye 0.5 appl ophthalmic (eye) BID 5 08/08/23 ointment days #5 grams vtwxbbg-jcdldhcnxcmbo-gnnbjzpg 250 2 tab PO Q6H PRN headache #30 tabs 11/29/23 mg-250 mg-65 mg tablet (Excedrin Migraine) diphenhydramine HCl 25 mg capsule 50 mg (2 x 25 mg) PO Q6H PRN 11/29/23 headache, nausea, vomiting #30 caps metoclopramide HCl 10 mg tablet 10 mg PO Q6H PRN nausea and 04/12/24 (Reglan) vomiting #14 tabs cyclobenzaprine 7.5 mg tablet 7.5 mg PO BID PRN muscle spasm #8 02/08/24 tabs lidocaine 5 % topical patch 1 patch topical DAILY #15 ea 02/08/24 prednisone 20 mg tablet 40 mg (2 x 20 mg) PO DAILY #10 tabs 02/08/24 Allergies Allergy/AdvReac Type Severity Reaction Status Date / Time menthol Allergy Severe ANAPHYLAXIS Verified 05/17/24 00:57 [From Vicks Cough Drops] trimethobenzamide [Tigan] Allergy Severe Anaphylaxis Verified 05/17/24 00:57 camphor [From VICKS VAPORUB] Allergy Unknown ANAPHYLAXIS Verified 05/17/24 00:57 eucalyptus Allergy Unknown ANAPHYLAXIS Verified 05/17/24 00:57 [From VICKS VAPORUB] petrolatum,white Allergy Unknown ANAPHYLAXIS Verified 05/17/24 00:57 [From VICKS VAPORUB] turpentine oil Allergy Unknown ANAPHYLAXIS Verified 05/17/24 00:57 [From VICKS VAPORUB] Review of Systems 2 Review of Systems: Yes all other systems are reviewed and are negative [facility] Past Medical History Medical History Substance abuse Asthma Opioid dependence Migraine Social History Social History Household Members: None Housing: Apartment Do you presently have visiting nurse or other home services: No Alcohol intake: never Patient Tobacco Use Status: Current everyday Tobacco user Tobacco use type: Cigarette e-Cigarette/Vaping Use: Never Used Second Hand Smoke Exposure: No Use of substances other than those prescribed or required for medical reasons: No Substance Use Type: Crack/Cocaine, Marijuana and Opiates Advance Directives: No Advance Directives Information Provided: No Do you have a plan to hurt others: No Plan service: No Current occupational status: disabled 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 The patient seemed very tired and complained of a headache typical of previous headaches. The patient did not seem ill other than being fatigued. HENMT Other: Face is symmetrical. Mucous membranes moist. Eyes Other: Pupils are round equal, conjunctivae are clear Neck Other: neck is supple Resp Effort & Inspection: normal respiratory effort Auscultation: clear to auscultation bilaterally Cardio Rate: regular rate Rhythm: regular rhythm Heart sounds: S1 normal heart sound present and S2 normal heart sound present GI Other: abdomen is soft and nontender Skin Other: skin is pale and dry General skin exam: no rashes or lesions noted Neuro Other: the patient was tired but arousable. Normal orientation. Cranial nerves grossly intact. Moving Extrem Other: No peripheral edema Medications Administered Discontinued Medications Generic Name Dose Route Start Last Admin Trade Name Freq PRN Reason Stop Dose Admin Diphenhydramine HCl 25 mg 05/17/24 03:47 05/17/24 04:22 Diphenhydramine Hcl 50 Mg/Ml Vial IVPUSH 05/17/24 03:48 25 mg ONCE ONE Administration Sodium Chloride 1,000 mls @ 999 mls/hr 05/17/24 04:00 05/17/24 06:12 Ns IV 05/17/24 05:00 Infused .Q1H1M SAMEER Infusion Ketorolac Tromethamine 10 mg 05/17/24 03:46 05/17/24 04:23 Ketorolac Tromethamine 15 Mg/Ml Vial IVPUSH 05/17/24 03:47 10 mg ONCE ONE Administration Metoclopramide HCl 10 mg 05/17/24 03:47 05/17/24 04:19 Metoclopramide Hcl 10 Mg/2 Ml Vial IVPUSH 05/17/24 03:48 10 mg ONCE ONE Administration Medical Decision Making Medical Decision Making MDM Narrative: the patient is a 58-year-old who presents complaining of a headache typical of previous headaches requesting treatment for migraines. The patient is also concerned that they might have been exposed to leptospirosis. The patient's dog recently of leptospirosis and the patient has been told that they are potentially at risk for transmission of this disease. Clinically the patient does not seem ill. Labs are unremarkable. A leptospirosis serology was sent. The patient was treated with a migraine cocktail and seemed to improve. The patient's labs were unremarkable and I explained to the patient I thought it was unlikely there showing any signs of leptospirosis. They should follow up with the primary care doctor at the [facility]. Lab Data 05/17/24 04:15 05/17/24 04:15 Labs: Lab Results 05/17/24 05/17/24 Range/Units 02:54 04:15 WBC 5.9 (4.8-10.8) X10*3/uL RBC 4.09 L (4.20-5.50) X10*6/uL Hgb 12.4 (12.0-16.0) g/dl Hct 36.2 L (37.0-47.0) % MCV 88.5 (80.0-98.0) fL MCH 30.3 (27.0-33.0) pg MCHC 34.3 (31.0-35.0) g/dl RDW 12.5 (11.0-16.0) % Plt Count 153 L (160-400) X10*3/uL MPV 9.8 (9.4-12.3) fL Immature Gran % (Auto) 0.2 (0.0-0.4) % Neut % (Auto) 65.4 (45-73) % Lymph % (Auto) 24.1 (20-40) % [place] % (Auto) 6.6 (2-11) % Eos % (Auto) 3.2 (0-4) % Baso % (Auto) 0.5 (0-2) % Lymph # (Auto) 1.4 (1.2-4.9) X10*3/uL [place] # (Auto) 0.4 (0.1-1.2) X10*3/uL Eos # (Auto) 0.2 (0.0-0.4) X10*3/uL Baso # (Auto) 0.0 (0.0-0.2) X10*3/uL Abs Immat Gran (auto) 0.01 (0.00-0.03) X10*3/uL Absolute Neuts (auto) 3.8 (2.0-8.3) x10*3/uL Absolute Nucleated RBC 0.000 (0.0-0.012) X10*3/uL Nucleated RBC % (auto) 0.0 (0.0-0.2) /100WBC Sodium 141 (135-145) mmol/L Potassium 3.6 (3.3-5.1) mmol/L Chloride 106 (96-108) mmol/L Carbon Dioxide 28 (22-29) mmol/L Anion Gap 11 L (12-20) BUN 19 H (9-16) mg/dL Creatinine 0.72 (0.5-1.4) mg/dL Estim Creat Clear Calc 65.8 Estimated GFR > 60 Random Glucose 117 H (60-115) mg/dL Calcium 9.0 (8.4-10.2) mg/dL Total Bilirubin 0.7 (0.0-1.0) mg/dL Direct Bilirubin 0.2 (0.0-0.5) mg/dL AST 23 (5-31) U/L ALT 18 (0-31) U/L Alkaline Phosphatase 79 (39-117) U/L C-Reactive Protein < 0.10 (< or = 0.50) mg/dL Total Protein 6.6 (6.5-8.0) g/dL Albumin 3.8 (3.5-5.0) g/dL Hold Yellow Top See Note Influenza Type A (PCR) NEGATIVE (Negative) Influenza Type B (PCR) NEGATIVE (Negative) RSV RNA Qual (PCR) NEGATIVE (Negative) SARS-CoV-2 RNA (RT-PCR) NEGATIVE (Negative) Discharge Plan Discharge Clinical Impression: Migraine headache Patient Disposition: Home, Self-Care Additional Instructions: You received IV treatment for a migraine headache. We also sent a test for leptospirosis. Based on your screening blood tests I think it is very unlikely you will test positive for leptospirosis. You should get a call from the hospital if your test is positive, but again I think this is unlikely. Please plan on resting and taking it easy today. Please follow up with your regular doctor's office soon. Return to the emergency room if significantly worse. Prescriptions: No Action czfhstsjwd-rwlvhtmljylci-smhr [Fioricet] 50-300-40 mg capsule 1 cap PO Q6H PRN (Reason: pain) Qty: 14 0RF ibuprofen 600 mg tablet 600 mg PO Q6-8H PRN (Reason: pain) Qty: 10 0RF baclofen 10 mg tablet 10 mg PO TID buprenorphine-naloxone 8-2 mg film 20 mg sublingual DAILY topiramate 50 mg tablet 50 mg PO BEDTIME quetiapine 50 mg tablet 50 mg PO BEDTIME ciprofloxacin HCl [Cipro] 250 mg tablet 250 mg PO Q12H 12 Days Qty: 24 0RF erythromycin 5 mg/gram (0.5 %) ointment 0.5 appl ophthalmic (eye) BID 5 Days Qty: 5 0RF amoxicillin-pot clavulanate 875-125 mg tablet 1 tab PO BID 12 Days Qty: 24 0RF prednisone 20 mg tablet 40 mg PO DAILY Qty: 10 0RF lidocaine 5 % adhesive patch,medicated 1 patch topical DAILY Qty: 15 0RF Rx Instructions: leave on most painful area for up to 12 hrs cyclobenzaprine 7.5 mg tablet 7.5 mg PO BID PRN (Reason: muscle spasm) Qty: 8 0RF diphenhydramine HCl 25 mg capsule 50 mg PO Q6H PRN (Reason: headache, nausea, vomiting) Qty: 30 0RF Excedrin Migraine 250-250-65 mg tablet 2 tab PO Q6H PRN (Reason: headache) Qty: 30 0RF metoclopramide HCl [Reglan] 10 mg tablet 10 mg PO Q6H PRN (Reason: nausea and vomiting) Qty: 14 0RF albuterol sulfate [Ventolin HFA] 90 mcg/actuation HFA aerosol inhaler 0 mcg inhalation BID sertraline 50 mg tablet 50 mg PO DAILY Referrals: [facility] [Provider Group] (Migraine headaches) Interventions: ED Discharge Assessment Last Done: 05/17/24 07:56 Discharge Date/Time: 05/17/24 08:42 Print Language: Marshallese
[2024-05-17 03:36] LABS: Influenza A PCR NEGATIVE (Negative); Influenza B PCR NEGATIVE (Negative); Resp Syncy Virus RNA Qual PCR NEGATIVE (Negative); SARS COV2 PCR INHOUSE NEGATIVE (Negative)
[2024-05-17] MEDS: 0.9 % Sodium Chloride 1,000 ML 999 ML IV (04:18)
[2024-05-17] MEDS: Metoclopramide HCl 10 MG/2 ML VIAL IVPUSH (04:19)
[2024-05-17 04:20] LABS: MANUAL DIFF FLAG NO
[2024-05-17 04:21] LABS: Basophils Percent Auto 0.5 % (0-2); Eosinophils Absolute Auto 0.2 X10*3/uL (0.0-0.4); Eosinophils Percent Auto 3.2 % (0-4); Hematocrit 36.2 % (37.0-47.0); Hemoglobin 12.4 g/dl (12.0-16.0); Imm Gran Abs Auto 0.01 X10*3/uL (0.00-0.03); Imm Gran Pct Auto 0.2 % (0.0-0.4); Lymphocytes Absolute Auto 1.4 X10*3/uL (1.2-4.9); Lymphocytes Percent Auto 24.1 % (20-40); Mean Corpuscular HGB Conc 34.3 g/dl (31.0-35.0); Mean Corpuscular Hemoglobin 30.3 pg (27.0-33.0); Mean Corpuscular Volume 88.5 fL (80.0-98.0); Mean Platelet Volume 9.8 fL (9.4-12.3); Monocytes Absolute Auto 0.4 X10*3/uL (0.1-1.2); Monocytes Percent Auto 6.6 % (2-11); Neutrophils Absolute Auto 3.8 x10*3/uL (2.0-8.3); Neutrophils Percent Auto 65.4 % (45-73); Platelet Count 153 X10*3/uL (160-400); Red Blood Count 4.09 X10*6/uL (4.20-5.50); Red Cell Distribution Width 12.5 % (11.0-16.0); White Blood Count 5.9 X10*3/uL (4.8-10.8)
[2024-05-17] MEDS: diphenhydrAMINE HCL 50 MG/ML VIAL 25 MG IVPUSH (04:22)
[2024-05-17] MEDS: Ketorolac Tromethamine 15 MG/ML VIAL 10 MG IVPUSH (04:23)
--- NOTE | 2024-05-17 04:24 | PC.NURSE ---
Iv placed, labs collected and sent, medicated per oct.
[2024-05-17 04:37] LABS: Alanine Aminotransferase 18 U/L (0-31); Albumin Level 3.8 g/dL (3.5-5.0); Alkaline Phosphatase 79 U/L (39-117); Anion Gap 11 (12-20); Aspartate Amino Transferase 23 U/L (5-31); Bilirubin Direct 0.2 mg/dL (0.0-0.5); Bilirubin Total 0.7 mg/dL (0.0-1.0); Blood Urea Nitrogen 19 mg/dL (9-16); C Reactive Protein < 0.10 mg/dL (< or = 0.50); Carbon Dioxide 28 mmol/L (22-29); Chloride 106 mmol/L (96-108); Creatinine Clr Calc Pharmacy 65.8; Estimated Glomerular Filt Rate > 60; Glucose Random 117 mg/dL (60-115); Potassium 3.6 mmol/L (3.3-5.1); Sodium 141 mmol/L (135-145); Total Protein 6.6 g/dL (6.5-8.0)
[2024-05-17 05:01] VITALS: BP 99/61; PULSE 64; RESP 12; O2SAT 97
--- NOTE | 2024-05-17 05:13 | PC.NURSE ---
Pt is sleeping at this time.
[2024-05-17 06:00] VITALS: BP 105/68; PULSE 56; RESP 16; O2SAT 100
[2024-05-17 07:56] VITALS: BP 105/68; PULSE 56; RESP 16; TEMP 36.9; O2SAT 100
[2024-05-20 18:27] LABS: Leptospira DNA Source WHOLE BLOOD; Leptospira DNA, Qual RT-PCR NOT DETECTED
== END 2024-05-17 08:42 | disposition home or self-care (01) ==
PROVIDERS: Emergency Provider Emergency Medicine
DX: G43.909 Migraine, unspecified, not intractable, without status migrainosus (principal); F17.210 Nicotine dependence, cigarettes, uncomplicated; Z03.818 Encounter for observation for suspected exposure to other biological agents ruled out; Z79.899 Other long term (current) drug therapy; Z20.89 Contact with and (suspected) exposure to other communicable diseases
CPT/HCPCS: 0241U; 36415; 80048; 80076; 85025; 86140; 87798; 96361; 96374; 96375; 99284; 99285; J1200; J1885; J2765

== ENCOUNTER 2024-06-17 22:55 | Emergency (ER) | payer OTHER, SELFPAY ==
[2024-06-17 23:06] VITALS: BP 121/68; PULSE 84; RESP 14; TEMP 36.6; O2SAT 97; BMI 20.7
[2024-06-18 03:13] VITALS: BP 103/61; PULSE 54; RESP 14; TEMP 36.8; O2SAT 95
--- NOTE | 2024-06-18 04:24 | ED.GENADULT ---
HPI - General Adult General Chief complaint: Eye Problems Stated complaint: L eye pain, stomach pain Time Seen by Provider: 06/18/24 04:18 Source: patient Mode of arrival: ambulatory Limitations: no limitations History of Present Illness ED Provider: Dr. Giordano HPI narrative: 58yo female with anxiety and depression presents with a migraine brought on by the stress of her dog dying. She is also concerned that something is in her right eye from construction Related Data Home Medications ?Medication ?Instructions ?Recorded ?Confirmed albuterol sulfate 90 mcg/actuation 0 mcg inhalation BID 10/25/21 08/06/23 aerosol inhaler (Ventolin HFA) sertraline 50 mg tablet 50 mg PO DAILY 07/11/22 08/06/23 baclofen 10 mg tablet 10 mg PO TID 08/06/23 08/06/23 buprenorphine 8 mg-naloxone 2 mg 20 mg sublingual DAILY 08/06/23 08/06/23 sublingual film quetiapine 50 mg tablet 50 mg PO BEDTIME 08/06/23 08/06/23 topiramate 50 mg tablet 50 mg PO BEDTIME 08/06/23 08/06/23 Previous Rx's ?Medication ?Instructions ?Recorded cgjliijfds-zxteixjgasgyq-jahsfrcb 1 cap PO Q6H PRN pain #14 caps 03/19/21 50 mg-300 mg-40 mg capsule (Fioricet) ibuprofen 600 mg tablet 600 mg PO Q6-8H PRN pain #10 tabs 10/04/22 amoxicillin 875 mg-potassium 1 tab PO BID 12 days #24 tabs 08/08/23 clavulanate 125 mg tablet ciprofloxacin HCl 250 mg tablet 250 mg PO Q12H 12 days #24 tabs 08/08/23 (Cipro) erythromycin 5 mg/gram (0.5 %) eye 0.5 appl ophthalmic (eye) BID 5 08/08/23 ointment days #5 grams nqlwbmk-ahuwcnlyimxkb-lvtewygi 250 2 tab PO Q6H PRN headache #30 tabs 11/29/23 mg-250 mg-65 mg tablet (Excedrin Migraine) diphenhydramine HCl 25 mg capsule 50 mg (2 x 25 mg) PO Q6H PRN 11/29/23 headache, nausea, vomiting #30 caps metoclopramide HCl 10 mg tablet 10 mg PO Q6H PRN nausea and 04/12/24 (Reglan) vomiting #14 tabs cyclobenzaprine 7.5 mg tablet 7.5 mg PO BID PRN muscle spasm #8 02/08/24 tabs lidocaine 5 % topical patch 1 patch topical DAILY #15 ea 02/08/24 prednisone 20 mg tablet 40 mg (2 x 20 mg) PO DAILY #10 tabs 02/08/24 naproxen 500 mg tablet (Naprosyn) 500 mg PO BID #20 tabs 06/18/24 Allergies Allergy/AdvReac Type Severity Reaction Status Date / Time menthol Allergy Severe ANAPHYLAXIS Verified 06/17/24 23:09 [From Vicks Cough Drops] trimethobenzamide [Tigan] Allergy Severe Anaphylaxis Verified 06/17/24 23:09 camphor [From VICKS VAPORUB] Allergy Unknown ANAPHYLAXIS Verified 06/17/24 23:09 eucalyptus Allergy Unknown ANAPHYLAXIS Verified 06/17/24 23:09 [From VICKS VAPORUB] petrolatum,white Allergy Unknown ANAPHYLAXIS Verified 06/17/24 23:09 [From VICKS VAPORUB] turpentine oil Allergy Unknown ANAPHYLAXIS Verified 06/17/24 23:09 [From VICKS VAPORUB] Review of Systems Review of Systems: Yes all other systems are reviewed and are negative Neurologic: Denies Sensory deficit (Neuro) PMFSH Past Medical History Medical History Routine medical exam Substance abuse Asthma Opioid dependence Migraine Social History Social History Household Members: None Housing: Apartment Do you presently have visiting nurse or other home services: No Alcohol intake: never Patient Tobacco Use Status: Current everyday Tobacco user Tobacco use type: Cigarette Smoked in Last 30 Days: Yes e-Cigarette/Vaping Use: Never Used Second Hand Smoke Exposure: No Use of substances other than those prescribed or required for medical reasons: No Substance Use Type: Marijuana Substance Use Frequency: Daily Last Used Substance: Hours (ago) Any prior treatment program specific to substance use: No Advance Directives: No Advance Directives Information Provided: No Do you have a plan to hurt others: No Plan Patient : No service: No Current occupational status: disabled 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 Sexual orientation: Unable to collect Physical Exam ED Vital Signs: Vital Signs - 24 hr 06/17/24 23:06 06/18/24 03:13 Temperature 97.9 F 98.3 F Pulse Rate 84 54 Respiratory Rate 14 14 Blood Pressure 121/68 103/61 Pulse Oximetry 97 95 Oxygen Delivery Method Room Air Room Air BMI result Body Mass Index 20.7 Const Other: unkept female looking older than stated age Nutritional Appearance: average body habitus Orientation/consciousness: oriented to person and patient oriented x3 Limitations: no limitations HENMT Head: Yes normal to inspection Ears: external ears normal General nose exam: Normal external nose present Mouth: Normal oral and palatal mucosa present and oropharynx normal Throat: Yes posterior oropharynx normal Eyes Other: right eye with no erythema or discharge Neck Neck: Yes normal visual inspection Chest Chest palpation & inspection: normal inspection of the chest Resp Auscultation: clear to auscultation bilaterally Cardio Jugular venous distension: no JVD Rate: regular rate Rhythm: regular rhythm Heart sounds: S1 normal heart sound present and S2 normal heart sound present GI Inspection: Yes normal to inspection Palpation (GI): Soft to palpation, nontender and No hepatosplenomegaly present Auscultation: normal bowel sounds General: Yes no CVA tenderness Back/Spine/Pelvis Back: no CVA tenderness Skin General skin exam: no rashes or lesions noted Neuro General: oriented to person and patient oriented x3 Cranial nerves: Yes CN's II-XII intact bilaterally Motor exam (neuro): 5/5 motor strength present throughout Sensory Exam: No Sensory deficit (Neuro) Extrem General: Yes normal to inspection Psych Other: abnormal affect Course Reevaluation(s) Reevaluation #1: patient most likely with stress/anxiety from her dog dying now with a headache. She received toradol and would like to leave Time: 04:46 Medications Administered Discontinued Medications Generic Name Dose Route Start Last Admin Trade Name Freq PRN Reason Stop Dose Admin Ketorolac Tromethamine 60 mg 06/18/24 04:23 06/18/24 04:32 Ketorolac Tromethamine 60 Mg/2 Ml Vial IM 06/18/24 04:24 60 mg ONCE ONE Administration Metoclopramide HCl 10 mg 06/18/24 04:23 06/18/24 04:32 Metoclopramide Hcl 10 Mg Tablet PO 06/18/24 04:24 10 mg ONCE ONE Administration Medical Decision Making Differential Diagnosis Differential Diagnoses: The differential diagnosis associated with the presentation includes (anxiety/stress, headache, eye irritation) Tests considered The following testing was considered but not selected: Head CT considered but patient is nonfocal Chronic Conditions Patient?s care impacted by: Other (psychiatric illness) Discharge Plan Discharge Clinical Impression: Stress at home, Headache Patient Disposition: Home, Self-Care Instructions: Stress (ED), Acute Headache (ED) Prescriptions: New naproxen [Naprosyn] 500 mg tablet 500 mg PO BID Qty: 20 0RF No Action ohxfwmagzh-wjhmywgfnihhv-ipkr [Fioricet] 50-300-40 mg capsule 1 cap PO Q6H PRN (Reason: pain) Qty: 14 0RF ibuprofen 600 mg tablet 600 mg PO Q6-8H PRN (Reason: pain) Qty: 10 0RF baclofen 10 mg tablet 10 mg PO TID buprenorphine-naloxone 8-2 mg film 20 mg sublingual DAILY topiramate 50 mg tablet 50 mg PO BEDTIME quetiapine 50 mg tablet 50 mg PO BEDTIME ciprofloxacin HCl [Cipro] 250 mg tablet 250 mg PO Q12H 12 Days Qty: 24 0RF erythromycin 5 mg/gram (0.5 %) ointment 0.5 appl ophthalmic (eye) BID 5 Days Qty: 5 0RF amoxicillin-pot clavulanate 875-125 mg tablet 1 tab PO BID 12 Days Qty: 24 0RF prednisone 20 mg tablet 40 mg PO DAILY Qty: 10 0RF lidocaine 5 % adhesive patch,medicated 1 patch topical DAILY Qty: 15 0RF Rx Instructions: leave on most painful area for up to 12 hrs cyclobenzaprine 7.5 mg tablet 7.5 mg PO BID PRN (Reason: muscle spasm) Qty: 8 0RF diphenhydramine HCl 25 mg capsule 50 mg PO Q6H PRN (Reason: headache, nausea, vomiting) Qty: 30 0RF Excedrin Migraine 250-250-65 mg tablet 2 tab PO Q6H PRN (Reason: headache) Qty: 30 0RF metoclopramide HCl [Reglan] 10 mg tablet 10 mg PO Q6H PRN (Reason: nausea and vomiting) Qty: 14 0RF albuterol sulfate [Ventolin HFA] 90 mcg/actuation HFA aerosol inhaler 0 mcg inhalation BID sertraline 50 mg tablet 50 mg PO DAILY Referrals: Physician,Unknown J [Primary Care Provider] - 1 week Print Language: Georgian
[2024-06-18] MEDS: Metoclopramide HCl 10 MG TABLET PO (04:32)
[2024-06-18] MEDS: Ketorolac Tromethamine 60 MG/2 ML VIAL IM (04:32)
[2024-06-18 05:26] VITALS: BP 103/61; PULSE 54; RESP 14; TEMP 36.8; O2SAT 95
== END 2024-06-18 05:27 | disposition home or self-care (01) ==
PROVIDERS: Emergency Provider Emergency Medicine
DX: R51.9 Headache, unspecified (principal); F43.9 Reaction to severe stress, unspecified; F41.9 Anxiety disorder, unspecified; Z79.899 Other long term (current) drug therapy
CPT/HCPCS: 96372; 99284; J1885

== ENCOUNTER 2024-07-04 03:42 | Emergency (ER) | payer OTHER, SELFPAY ==
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
[2024-07-04 03:44] VITALS: BP 109/66; PULSE 81; RESP 16; TEMP 36.6; O2SAT 98; BMI 20.1
[2024-07-04 05:39] VITALS: BP 103/55; PULSE 73; RESP 16; O2SAT 94
--- NOTE | 2024-07-04 06:00 | PC.NURSE ---
Patient refused get changed into a hospital [facility], patient reports migraine headache and insisting on getting IV hydration. This RN offered to patient Tylenol, patient refused. Dr. Morillo updated, verbal order received for CT of head/brain and cervical spine. Ice pack provided for anterior/posterior chest pain.
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
[2024-07-04 08:00] VITALS: BP 110/65; PULSE 70; RESP 18; TEMP 36.6; O2SAT 94
[2024-07-04] MEDS: Butalb/Acetamin/Caff 50/325/40 TABLET 1 TAB PO (08:13)
[2024-07-04] MEDS: Cyclobenzaprine HCl 10 MG TABLET PO (08:13)
[2024-07-04] MEDS: Lidocaine 4 % Patch ADH..PATCH 1 PATCH TRANSDERMA (08:14)
[2024-07-04 09:22] VITALS: BP 110/65; PULSE 70; RESP 18; TEMP 36.7; O2SAT 94
--- OUTSIDE RECORDS SUMMARY | 2024-07-10 12:15 | XMS_ITS | Continuity of Care Document ---
Author Organization [facility] Address [address] [place], [place] [id number]- Care Team Providers Care Cemetery Counselor Name Role Phone Child SOLIS Sami Primary Care Physician [phone] Encounter [facility] [place] Date(s): 12/18/23 - 03/20/24 [facility] [address] [place] [address]- Attending Physician: Johny Quintana MD Admitting Physician: Johny Quintana MD Referring Physician: Elida Baker Allergies, Adverse Reactions, Alerts Substance Reaction Severity [...] Team Personnel Name: Child Sami ELY Position: [facility] Outreach Member Role: PCP Address: Address: [address] [place] [address]- Care Team Related Persons Name: KOFI LEMOS Address: home [address] [place] [address] Name: SUMIT LOPEZ Address: home [address] [place] [address] Name: JORDAN KWON Name: KEMI KWON
--- OUTSIDE RECORDS SUMMARY | 2024-07-10 12:15 | XMS_ITS | Continuity of Care Document ---
Author Organization [facility] ter Address [address] [place] [id number]- Care Team Providers Care Women Designer Name Role Phone Child SOLISSami Primary Care Physician [phone] [place] [facility] [place] 07/03/23 - 09/12/[address] [address] Attending Physician: Elida Baker Admitting Physician: Elida Baker Referring Physician: Elida Baker Allergies, Adverse Reactions, [...] Team Personnel Name: Child Sami ELY Position: [facility] Outreach Member Role: PCP Address: Address: [address] [place] [address]- Care Team Related Persons Name: KOFI LEMOS Address: home [address] [place] [address] Name: SUMIT LOPEZ Address: home [address] [place] [address] Name: JORDAN KWON Name: KEMI KWON
--- OUTSIDE RECORDS SUMMARY | 2024-07-10 12:16 | XMS_ITS | Continuity of Care Document ---
Author Organization [facility] Address [address] [place] [id number]- Care Team Providers Care Boilermaking Supervisor Name Role Phone Child Sami ELY Primary Care Physician [phone] Encounter [facility] [place] Date(s): 11/21/23 - 01/16/24 [facility] [address] [place] [address]- Attending Physician: Johny Quintana MD Admitting Physician: [...] S Outreach Member Role: PCP Address: Address: [address] [place] [address]- Care Team Related Persons Name: CANELO KOFI Address: [address] [place] [address] Name: SUMIT LOPEZ Address: home [address] [place] [address] Name: JORDAN KWON Name: KEMI KWON
== END 2024-07-04 09:23 | disposition home or self-care (01) ==
PROVIDERS: Emergency Provider Emergency Medicine
DX: S09.90XA Unspecified injury of head, initial encounter (principal); S13.4XXA Sprain of ligaments of cervical spine, initial encounter; S20.211A Contusion of right front wall of thorax, initial encounter; V43.52XA Car driver injured in collision with other type car in traffic accident, initial encounter; J45.909 Unspecified asthma, uncomplicated; F19.10 Other psychoactive substance abuse, uncomplicated; F11.20 Opioid dependence, uncomplicated; F17.210 Nicotine dependence, cigarettes, uncomplicated; Z79.899 Other long term (current) drug therapy; Y93.89 Activity, other specified; Y92.481 Parking lot as the place of occurrence of the external cause; Y99.9 Unspecified external cause status
CPT/HCPCS: 70450; 71046; 72125; 99284

== ENCOUNTER → 2024-08-24 19:14 | Outpatient (BNV) | payer OTHER, SELFPAY | PROVIDERS: Emergency Provider Internal Medicine; Visit Provider Internal Medicine | DX: R07.9 Chest pain, unspecified (principal) | CPT/HCPCS: 93010 ==

== ENCOUNTER → 2024-08-24 20:04 | Outpatient (BNV) | payer OTHER, SELFPAY | PROVIDERS: Emergency Provider Internal Medicine; Visit Provider Radiology Diagnostic Radiology | DX: R07.9 Chest pain, unspecified (principal) | CPT/HCPCS: 71045 ==

== ENCOUNTER 2025-02-12 00:05 | Emergency (ER) | payer OTHER, SELFPAY ==
--- NOTE | ~2025-02-12 | XR_ITS ---
CLINICAL HISTORY: cough 2 view chest x-ray Comparison: CR/SR - XR CHEST 2V - 07/04/24 05:27 EST Findings: No consolidation or effusion. Normal size heart. No acute fracture. IMPRESSION: 1. No acute findings. This document has been electronically signed by: Patricia Day MD on 02/12/2025 05:32:00
[2025-02-12 00:12] VITALS: BP 114/60; PULSE 72; RESP 16; TEMP 36.2; O2SAT 97; BMI 20.6
--- NOTE | 2025-02-12 00:26 | ECG_ITS ---
Test Reason : CHEST PAIN Blood Pressure : */* mmHG Vent. Rate : 67 BPM Atrial Rate : 67 BPM P-R Int : 158 ms QRS Dur : 84 ms QT Int : 410 ms P-R-T Axes : 65 42 39 degrees QTcB Int : 433 ms Normal sinus rhythm Normal ECG When compared with ECG of 24-Aug-2024 19:24, Premature ventricular complexes are no longer Present Referred By: Generic ED Physician Electronically Signed By: CHER SCANLON
--- NOTE | 2025-02-12 00:28 | PC.NURSE ---
Notified Sadaf, associate professor of geography, of pt's SI/HI statements. PT sitting in PIT chairs within eyesight of TW at this time. Awaiting EKG, labs and bed.
--- NOTE | 2025-02-12 00:46 | PC.NURSE ---
PT denies SI/HI to provider, Dr Lovelace. Dr. lovelace ok'd pt to go to waiting room
[2025-02-12 00:51] LABS: MANUAL DIFF FLAG NO
[2025-02-12 00:58] LABS: Basophils Percent Auto 0.3 % (0-2); Eosinophils Absolute Auto 0.2 X10*3/uL (0.0-0.4); Eosinophils Percent Auto 2.4 % (0-4); Hematocrit 35.8 % (37.0-47.0); Hemoglobin 12.5 g/dl (12.0-16.0); Imm Gran Abs Auto 0.02 X10*3/uL (0.00-0.03); Imm Gran Pct Auto 0.3 % (0.0-0.4); Lymphocytes Absolute Auto 1.7 X10*3/uL (1.2-4.9); Lymphocytes Percent Auto 24.9 % (20-40); Mean Corpuscular HGB Conc 34.9 g/dl (31.0-35.0); Mean Corpuscular Hemoglobin 30.3 pg (27.0-33.0); Mean Corpuscular Volume 86.9 fL (80.0-98.0); Mean Platelet Volume 9.6 fL (9.4-12.3); Monocytes Absolute Auto 0.4 X10*3/uL (0.1-1.2); Monocytes Percent Auto 6.4 % (2-11); Neutrophils Absolute Auto 4.4 x10*3/uL (2.0-8.3); Neutrophils Percent Auto 65.7 % (45-73); Platelet Count 163 X10*3/uL (160-400); Red Blood Count 4.12 X10*6/uL (4.20-5.50); Red Cell Distribution Width 12.3 % (11.0-16.0); White Blood Count 6.7 X10*3/uL (4.8-10.8)
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
[2025-02-12 01:25] LABS: Alanine Aminotransferase 22 U/L (0-31); Albumin Level 4.4 g/dL (3.5-5.0); Alkaline Phosphatase 75 U/L (39-117); Anion Gap 10 (12-20); Aspartate Amino Transferase 26 U/L (5-31); Bilirubin Total 1.1 mg/dL (0.0-1.0); Blood Urea Nitrogen 19 mg/dL (9-16); Calcium 9.1 mg/dL (8.4-10.2); Carbon Dioxide 28 mmol/L (22-29); Chloride 106 mmol/L (96-108); Creatinine Clr Calc Pharmacy 62.9; Estimated Glomerular Filt Rate > 60; Ethanol < 10 mg/dL; Glucose Random 109 mg/dL (60-115); Lipase 18 U/L (8-78); Potassium 3.5 mmol/L (3.3-5.1); Sodium 140 mmol/L (135-145)
[2025-02-12 01:33] LABS: Troponin-I High Sensitivity < 2.7 ng/L (<3.5-17.0)
[2025-02-12] MEDS: Metoclopramide HCl 10 MG/2 ML VIAL IVPUSH (01:57)
[2025-02-12] MEDS: Ketorolac Tromethamine 15 MG/ML VIAL IVPUSH (01:57)
[2025-02-12] MEDS: diphenhydrAMINE HCL 50 MG/ML VIAL 25 MG IVPUSH (01:57)
[2025-02-12] MEDS: 0.9 % Sodium Chloride 1,000 ML 999 ML IV ×2 (01:57→09:02)
[2025-02-12 06:18] VITALS: BP 108/63; PULSE 56; RESP 20; TEMP 36.4; O2SAT 98
--- NOTE | 2025-02-12 07:35 | PC.NURSE ---
Care of Pt assumed at change of shift. Pt resting comfortably with eyes closed at this time. NAD noted Pt awaiting Care Team consult.
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
[2025-02-12] MEDS: LORazepam 1 MG TABLET 2 MG PO (09:13)
--- NOTE | 2025-02-12 09:14 | PC.NURSE ---
Pt calls this RN to bedside to demand a blanket. Pt is very agitated, using foul language and states she is being treated like garbage. Pt is demanding to be d/c'd and states no one has taken care of her. Pt provided with warm blanket and advised that DrNicky will be asked to come to bedside. Dr. Eid asked to see Pt. Pt continues to be agitated with pressured speech. Care Team attempts to see Pt however Pt refusing to see a male. Pt demands to speak with supercharger mechanic and begins pacing about the unit. This RN and renal technician at bedside to hear Pt grievances. Pt reports she is unhappy with simons bed, lack of food, lack of medications/IVF and demands these items in addition to seeing a female Care Team provider. Pt expresses that she feels she has been poorly judged and therefore is receiving sub-par care and the other Pts in the ED do not need the care/treatment they are receiving as she is able to assess them. She states she came here for help and if she wanted to she could use her money to [facility] but wont because she has a granddaughter about to be born. Pt is agreeable to stay for Tx if she can have breakfast and a female CT staff member; supercharger mechanic coordinates these items. This RN consults with Dr. Eid for IVF and Pt then requests medication for anxiety therefore Ativan 2mg given. Care Team Harika at bedside for eval. Awaiting breakfast tray and IVF to infuse at this time.
--- NOTE | 2025-02-12 09:41 | PC.NURSE ---
Breakfast tray provided along with bedside table for comfort. IVF infusing. Pt again demands to be placed in a room; Pt advised that she is to remain in her location for the time being. Pt continues to be agitated and frequently stops staff walking by to air grievances.
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
[2025-02-12 13:42] VITALS: BP 108/63; PULSE 56; RESP 20; TEMP 36.4; O2SAT 98
--- NOTE | 2025-02-12 16:02 | MHC.CARE ---
[facility] referral complete
--- NOTE | 2025-02-28 18:40 | PC.NURSE ---
Late Entry: This RN cared for Pt starting at change of shift (0700) until 1100. Care of Pt relinquished to WARREN Mills at 1100. IVF were initiated during this RNs care and completed infusion at approx. 1055a. Unable to edit MAR at this time.
== END 2025-02-12 13:43 | disposition home or self-care (01) ==
PROVIDERS: Emergency Medicine; Emergency Provider Emergency Medicine; PCP Dentist General Practice
DX: R51.9 Headache, unspecified (principal); R05.3 Chronic cough; F32.A Depression, unspecified; F41.9 Anxiety disorder, unspecified; F43.10 Post-traumatic stress disorder, unspecified; F19.10 Other psychoactive substance abuse, uncomplicated; F12.90 Cannabis use, unspecified, uncomplicated; F11.20 Opioid dependence, uncomplicated; F17.210 Nicotine dependence, cigarettes, uncomplicated; Z79.899 Other long term (current) drug therapy
CPT/HCPCS: 36415; 71046; 80053; 80307; 83690; 83735; 84484; 85025; 93005; 96361; 96374; 96375; 99284; 99285; J1200; J1885; J2765; S9485

== ENCOUNTER → 2025-02-12 00:26 | Outpatient (BNV) | payer OTHER, SELFPAY | PROVIDERS: Emergency Provider Emergency Medicine; PCP Dentist General Practice; Visit Provider Internal Medicine | DX: R07.89 Other chest pain (principal) | CPT/HCPCS: 93010 ==

== ENCOUNTER → 2025-02-12 02:48 | Outpatient (BNV) | payer OTHER, SELFPAY | PROVIDERS: Emergency Provider Emergency Medicine; PCP Dentist General Practice; Visit Provider Radiology Diagnostic Radiology | DX: R05.9 Cough, unspecified (principal) | CPT/HCPCS: 71046 ==

== ENCOUNTER 2025-02-22 06:34 | Inpatient (IN) | payer OTHER, SELFPAY ==
[2025-02-22] VITALS (10 sets, daily range): BP systolic 102–145; BP diastolic 41–63; PULSE 56–75; RESP 16–18; TEMP 36.4–36.9; O2SAT 94–97; BMI 20.6
--- NOTE | ~2025-02-22 | CT_ITS ---
EXAMINATION: CT HEAD WITHOUT CONTRAST CLINICAL INFORMATION: Headache COMPARISON: 07/04/2024. TECHNIQUE: Contiguous axial imaging was performed from the skull base to vertex without intravenous administration of contrast. This CT examination was performed using dose optimization techniques as appropriate, variously including the following: *Automated exposure control *Adjustment of mA and/or kV according to patient size (this includes techniques or standardized protocols for targeted exams where dose is matched to indication/reason for exam; i.e. extremities or head) *Use of iterative reconstruction technique FINDINGS: There is no evidence of intracranial hemorrhage or extra-axial fluid collection. There is no mass effect, or edema. No CT evidence of acute territorial infarct. Ventricles, sulci, and cisterns are normal in size and configuration for patient age. No hydrocephalus. No midline shift. Negative hyperdense MCA sign. Negative insular ribbon sign. No significant white matter abnormalities. Globes and orbital contents image normally. No extracranial soft tissue abnormalities. The paranasal sinuses, mastoid air cells, and tympanic cavities are normally aerated. No suspicious bony abnormalities. There are no acute fractures evident. CT/CT head/brain wo IV con IMPRESSION: No acute intracranial abnormality. Electronically signed by: Bk Rogers MD 02/22/2025 10:36 AM EDT
--- NOTE | ~2025-02-22 | XR_ITS ---
EXAMINATION: XR HAND 3 OR MORE VIEWS RIGHT HISTORY: pt punched a wall COMPARISON: Comparison is made with the prior examination dated 11/09/2018. FINDINGS: Three views of the right hand are submitted. Osseous mineralization is normal. There is a probable old fracture deformity involving the PIP joint of the 5th finger. No acute fracture or dislocation is seen. There is mild narrowing of the PIP joint of the 5th finger. The soft tissues are unremarkable. XR/XR hand RT min 3V IMPRESSION: No evidence of acute fracture of the right hand. Electronically signed by: Marlon North MD 03/05/2025 12:26 PM EDT
--- NOTE | ~2025-02-22 | XR_ITS ---
EXAMINATION: XR CHEST 2 VIEWS HISTORY: pt punched a wall, banging her chest in to this COMPARISON: Comparison is made with the prior examination dated 02/12/2025. FINDINGS: PA and lateral views of the chest are submitted. The lungs are expanded and clear. There is no pleural effusion, pneumothorax, or pulmonary vascular congestion. The heart is normal in size. The bones are intact. XR/XR chest 2V IMPRESSION: No acute cardiopulmonary abnormality. Electronically signed by: Marlon North MD 03/05/2025 12:28 PM EDT
--- NOTE | ~2025-02-22 | XR_ITS ---
EXAMINATION: XR CERVICAL SPINE CLINICAL INFORMATION: pt hit her chest/neck against the wall COMPARISON: CT July 04, 2024 TECHNIQUE: 3 views of the cervical spine were obtained. FINDINGS: There is no prevertebral soft tissue swelling. There is nonsegmentation the facets at C2-3. Again seen are endplate and uncovertebral osteophytes at C4-5 and C5-6 with mild disc space narrowing. Triangular shaped small chronic ossification is present in the soft tissues cephalad to the posterior left first rib. XR/XR cervical spine 3V IMPRESSION: No acute abnormality Electronically signed by: Sukumar Lomeli MD 03/05/2025 12:41 PM EDT
--- NOTE | ~2025-02-22 | XR_ITS ---
EXAMINATION: XR CLAVICLE BILATERAL HISTORY: pt hit her chest against the wall COMPARISON: Correlation is made with plain films of the left shoulder dated 06/27/2019. FINDINGS: Two views of each clavicle are submitted. Osseous mineralization is normal. There is no fracture or dislocation. 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 The soft tissues are unremarkable. XR/XR clavicle BI IMPRESSION: No evidence of fracture of the bilateral clavicles. Electronically signed by: Marlon North MD 03/05/2025 12:33 PM EDT
--- OUTSIDE RECORDS SUMMARY | 2025-02-22 06:43 | XMS_ITS | Data Portability ---
Author Organization [facility], [facility] Address [address] [place] [phone] Care Team Providers Care Launch Engineer Name Role Phone RENETTA JIMENEZ Primary Care Provider [facility] Referring Provider Assessment Encounter Date Assessment Date Assessment LastModified by Organization Details LastModified Time 06/30/2023 06/30/2023 I provided real -time medical direction via phone for this encounter, and was available for additional phone based assistance as needed. I have reviewed and agree with the Assessment and Plan as documented by the Steam Box Hand. Patient given the opportunity to ask questions. Advised need to follow-up with PCP ASHOK-need to discuss migraine management and provide needs to be re-examined. PCP can refer to ophthalmology if needed. Also advised if develops CP/severe SOB/turning blue/uncontrolle d n/v/d or black/bloody emesis or stool/ AMS/focal numbness or weakness/any acute visual changes, uncontrolled headache/syncope / hi fever to call 911- verbalized understanding of instructions [email or web address] Not available 06/30/2023 18:17:39 07/06/2023 07/06/2023 I provided real -time medical direction via phone for this encounter, and was available for additional phone based assistance as needed. I have reviewed and agree with the Assessment and Plan as documented by the Steam Box Hand. Patient given the opportunity to ask questions. As per above, patient with decreased urine output and almost no urine output for the past 6 hours. Also with decreased p.o. intake. Per green feed attendant on scene has expressed many social issues. Failure to thrive may be somewhat intentional in nature. Patient does not express in active suicide ideation however there was concern for significant failure to thrive at home. Discussed best situation possible for patient to present to the emergency department for which she is agreement if we can get coverage for her dog. Steam Box Hand on scene arrange for transport to the emergency department and for any neighbor to take care of her Saleem gomze. [email or web address] Not available 07/06/2023 21:55:38 07/14/2023 07/14/2023 Encounter opened but visit unfufilled as unable to make contact with patient. [email or web address] Not available 07/14/2023 15:58:40 07/26/2023 07/26/2023 service called for n/v found 57 mya c/o vague n/v/SOB, tearful +BREWSTER VSS #N/V reassured return to primary team for assistance up mental health counseling [email or web address] Not available 07/27/2023 00:07:47 10/14/2023 10/14/2023 I provided real -time medical direction via phone for this encounter, and was available for additional phone based assistance as needed. I have reviewed and agree with the Assessment and Plan as documented by the Steam Box Hand. We discussed the diagnostic uncertainty of home visits and the risk associated with this. In this case the patient and I felt this to be an acceptable and reasonable amount of risk given the benefit of avoiding an ED visit. The patient given the opportunity to ask questions. Advised if develops CP/severe SOB/turning blue/uncontrolle d n/v/d or black/bloody emesis or stool/ AMS/ syncope/intolera ble headache/focal neuro deficit including acute visual changes/ hi fever to call 911- verbalized understanding of instructions . Not available 10/15/2023 17:51:02 Plan of Treatment Reminders Order Date Submit Date Provider Last Modified By Organization Details Last Modified Time Details Appointments None recorded. Lab None recorded. Referral None recorded. Procedures None recorded. Surgeries None recorded. Imaging None recorded. Medication Orders lactated Ringers intravenous solution 2023 024 [email or web address] [facility], [address] [place], [address], 4 11:04:21 ketorolac 15 mg/mL injection solution 2023 024 [email or web address] [facility], [address] [place], [address], 4 11:04:21 diphenhydra mine 50 mg/mL injection solution 2023 024 [email or web address] [facility], [address] [place], [address], 4 11:04:21 metoclopram herbert 5 mg/mL injection solution 2023 024 [email or web address] [facility], [address] [place], [address], 4 11:04:21 metoclopram herbert 5 mg/mL injection solution 2022 023 [email or web address] [facility], [address] [place] [address], [address], 3 13:35:00 diphenhydra mine 50 mg/mL injection solution 2022 023 [email or web address] [facility], [address] [place], [address], 3 13:35:00 sodium chloride 0.9 % intravenous solution 2022 023 [email or web address] [facility], [address] [place], [address], 3 13:35:00 ketorolac 15 mg/mL injection solution 2022 023 [email or web address] [facility], [address] [place], [address], 3 13:35:00 erythromyci n 5 mg/gram (0.5 %) eye ointment 2022 023 [facility], [address] [place], [address], 3 13:32:43 cephalexin 500 mg capsule 2022 023 [facility], [address] [place], [address], 3 13:32:43 cephalexin 500 mg capsule 2022 023 [email or web address] [facility], [address] [place], [address], 3 13:32:42 Patient TargetsNo targets recorded. Patient InstructionsNo instructions recorded. Reason for Referral None Reported. Medical Equipment None Reported. Allergies Allergen ID Allergen Name Allergen Category Reaction Reaction Severity Criticality Documentation Date Start Date Code Code System Note Provider Name and Address Organization Details Recorded Time 2738 Tigan medicatio n Not available Not available Not available 02/22/2023 28368 8 RxNorm Payal Quinones MD [address] [place] [address],[address], [place], [address], [employer] 3 10:50:51 2740 camphor / Eucalyptu s oil / menthol medicatio n Not available Not available Not available 02/22/2023 10985 8 RxNorm Payal Quinones MD [address] [place] [address],[address], [place], [address], [employer] 3 10:51:03 Medications Name Sig Start Date Stop Date Status Note LastModified by Organization Details LastModified Time ketorolac 15 mg/mL injection solution 15 mg 2023 active Not Available Not Available Not Avai lable silver sulfadiazine 1 % topical cream APPLY TO AFFECTED AREA EVERY DAY active Not Available Not Available No t Available clonidine HCl 0.1 mg tablet PLEASE SEE ATTACHED FOR DETAILED DIRECTIONS active Not Available Not Available N ot Available metocloprami de 5 mg/mL injection solution Take 10 mg by injection route. 2023 active Not Available Not Available Not Avai lable hydrocodone 5 mg-acetamino phen 325 mg tablet TAKE 1 TABLET BY MOUTH EVERY 6 TO 8 HOURS active Not Available Not Available No t Available polyvinyl alcohol 1.4 % eye drops PUT 1 DROP INTO BOTH EYES TWICE A DAY active Not Available Not Available No t Available prednisone 20 mg tablet TAKE 3 TABLETS FOR 5 DAYS THEN TAKE 2 TABLETS FOR 4 DAYS THEN TAKE 1 TABLET FOR 3 DAYS active Not Available Not Available No t Available lactated Ringers intravenous solution Inject 1000 mL by intravenous route. 2023 active Not Available Not Available Not Avai lable sumatriptan 50 mg tablet TAKE 1 TABLET BY MOUTH 1 (ONE) TIME NEEDED FOR MIGRAINE FOR UP TO 1 DOSE active Not Available Not Available No t Available hydroxyzine pamoate 50 mg capsule TAKE 1 CAPSULE BY MOUTH EVERY 6 HOURS NEEDED FOR ANXIETY active Not Available Not Available No t Available tramadol 50 mg tablet TAKE 1 TABLET BY MOUTH 4 TIMES DAILY NEEDED FOR PAIN. active Not Available Not Available No t Available acetaminophe n 500 mg tablet TAKE 1 TABLET BY MOUTH EVERY 6 HOURS NEEDED FOR PAIN active Not Available Not Available No t Available ketorolac 30 mg/mL (1 mL) injection solution 15 mg iv 2022 active Not Available Not Available Not Avai lable ofloxacin 0.3 % ear drops PLACE 10 DROPS INTO LEFT EAR DAILY active Not Available Not Available No t Available diphenhydram ine 50 mg/mL injection solution 25 mg iv 2023 active Not Available Not Available Not Avai lable methocarbamo l 750 mg tablet TAKE 1 TABLET BY MOUTH EVERY 6 HOURS NEEDED FOR MUSCLE SPASM active Not Available Not Available No t Available baclofen 10 mg tablet TAKE 1 TABLET 3 TIMES A DAY BY ORAL ROUTE. active Not Available Not Available No t Available cephalexin 500 mg capsule TAKE 1 CAPSULE BY MOUTH EVERY 6 HOURS FOR 7 DAYS active Not Available Not Available No t Available erythromycin 5 mg/gram (0.5 %) eye ointment PLEASE SEE ATTACHED FOR DETAILED DIRECTIONS active Not Available Not Available N ot Available nicotine 21 mg/24 hr daily transdermal patch APPLY ONE PATCH TOPICALLY EVERY DAY active Not Available Not Available No t Available gabapentin 300 mg capsule TAKE 1 CAPSULE BY MOUTH 2 TIMES DAILY INDICATIONS : NEUROPATHIC PAIN active Not Available Not Available No t Available hydroxyzine HCl 25 mg tablet TAKE 1 TABLET BY MOUTH 4 TIMES A DAY NEEDED FOR ANXIETY active Not Available Not Available Not Available sodium chloride 0.9 % intravenous solution Inject 1000 mL by intravenous route. 2022 active Not Available Not Available Not Avai lable ibuprofen 600 mg tablet TAKE 1 TABLET BY MOUTH EVERY 6 TO 8 HOURS NEEDED FOR PAIN active Not Available Not Available No t Available methylpredni solone 4 mg tablets in a dose pack TAKE 6 TABLETS ON DAY 1 DIRECTED ON PACKAGE AND DECREASE BY 1 TAB EACH DAY FOR A TOTAL OF 6 DAYS active Not Available Not Available No t Available albuterol sulfate HFA 90 mcg/actuatio n aerosol inhaler INHALE 2 PUFFS INTO THE LUNGS EVERY 4 TO 6 HOURS NEEDED FOR SHORTNESS OF BREATH OR WHEEZING active Not Available Not Available Not Available ondansetron 4 mg disintegrati ng tablet PLACE 1 TABLET ON TOP OF THE TONGUE EVERY 8 HOURS NEEDED active Not Available Not Available No t Available sertraline 50 mg tablet TAKE 1 TABLET BY MOUTH ONCE DAILY FOR ANXIOUSNESS ASSOCIATED WITH DEPRESSION active Not Available Not Available N ot Available doxycycline hyclate 100 mg tablet TAKE 1 TABLET BY MOUTH TWICE A DAY active Not Available Not Available No t Available loratadine 10 mg tablet TAKE 1 TABLET BY MOUTH ONCE DAILY NEEDED FOR ALLERGIES active Not Available Not Available No t Available prazosin 2 mg capsule TAKE 1 CAPSULE BY MOUTH NIGHTLY AT BEDTIME. active Not Available Not Available No t Available amoxicillin 875 mg-potassium clavulanate 125 mg tablet TAKE 1 TABLET BY MOUTH TWICE A DAY FOR 5 DAYS active Not Available Not Available No t Available oxycodone 5 mg tablet TAKE 1 TABLET BY MOUTH EVERY 6 HOURS NEEDED FOR PAIN active Not Available Not Available No t Available nicotine (polacrilex) 4 mg buccal lozenge TAKE 1 TABLET EVERY 2 HOURS BY ORAL ROUTE. active Not Available Not Available Not Available ciprofloxaci n 0.3 %-dexamethas one 0.1 % ear drops,suspen angie PLACE 4 DROPS INTO RIGHT EAR TWICE A DAY FOR 5 DAYS active Not Available Not Available N ot Available topiramate 50 mg tablet TAKE 1 TABLET BY MOUTH EVERYDAY AT BEDTIME active Not Available Not Available No t Available ketorolac 15 mg/mL injection syringe 15 mg iv 2022 active Not Available Not Available Not Avai lable Advair HFA 115 mcg-21 mcg/actuatio n aerosol inhaler TAKE 2 PUFFS BY MOUTH TWICE A DAY active Not Available Not Available No t Available quetiapine 50 mg tablet TAKE 1 TABLET BY MOUTH EVERYDAY AT BEDTIME active Not Available Not Available No t Available ondansetron HCl (PF) 4 mg/2 mL injection solution 4 mg iv 2022 active Not Available Not Available Not Avai lable famotidine (PF) 20 mg/2 mL intravenous solution 4 ml iv infusion 2022 active Not Available Not Available Not Avai lable butalbital-a cetaminophen -caffeine 50 mg-300 mg-40 mg capsule TAKE 1 CAPSULE BY MOUTH TWICE A DAY NEEDED FOR HEADACHE active Not Available Not Available No t Available buprenorphin e 8 mg-naloxone [address] 2 FILMS EVERY DAY BY SUBLINGUAL ROUTE FOR 7 DAYS. active Not Available Not Available No t Available naloxone 4 mg/actuation nasal spray TAKE 1 SPRAY BY NASAL ROUTE. active Not Available Not Available No t Available Vitals Date Recorded Oxygen saturation Oxygen saturation in Arterial blood by Pulse oximetry Body temperature Body weight Body height Respiratory rate Heart rate Systolic And Diastolic Provider Name and Address Organization Details Last Updated DateTime 4 96 % 96 % 98.1 [degF] 88927.0 4 g 157.48 cm 18 /min 77 /min 106/56 mm[Hg] Not Available [employer] 4 10:56:37 Date Recorded Body temperature Oxygen saturation Oxygen saturation in Arterial blood by Pulse oximetry Heart rate Body weight Respiratory rate Body height Systolic And Diastolic Provider Name and Address Organization Details Last Updated DateTime 3 97.9 [degF] 98 % 98 % 88 /min 97370.1 2 g 16 /min 157.48 cm 104/69 mm[Hg] Not Available [employer] 3 13:22:28 Date Recorded Respiratory rate Oxygen saturation Oxygen saturation in Arterial blood by Pulse oximetry Heart rate Body temperature Systolic And Diastolic Provider Name and Address Organization Details Last Updated DateTime 3 18 /min 98 % 98 % 78 /min 97.5 [degF] 122/75 mm[Hg] Not Available [employer] 3 18:07:28 Date Recorded Heart rate Body weight Oxygen saturation Oxygen saturation in Arterial blood by Pulse oximetry Body temperature Respiratory rate Systolic And Diastolic Provider Name and Address Organization Details Last Updated DateTime 3 98 /min 04488.9 2 g 99 % 99 % 98.2 [degF] 18 /min 130/80 mm[Hg] Not Available [employer] 3 18:04:56 Social History None recorded. Functional Status None recorded. Mental Status None recorded. Family History Nothing Reported. Medical History No medical history recorded. Gynecological HistoryNo gynecological history recorded. Obstetrics History GPAL:G 0 P 0 0 0 0 Past Encounters Encounter ID Performer Location Encounter Start Date Encounter Closed Date Diagnosis/Indication Diagnosis SNOMED-CT Code Diagnosis ICD10 Code Diagnosis Note [id number] Cristian Rich MD [facility] [address] [place] [id number] 06/19/2022 16:25:38 06/20/2022 12:26:30 Migraine [id number] G43.909 [id number] Delmer Lemon MD [facility] [address] [place] [id number] 02/18/2023 15:11:46 02/19/2023 10:45:39 Migraine without aura [id number] G43.009 This 57-year-ol d female with a history of migraine headaches has had a typical migraine with nausea for several days. She doesn't have access to her usual migraine medication s as she is moving. I ordered Toradol 15 mg IM and Zofran ODT 4 mg. She will follow-up with her PCP. The patient agreed with this plan. [id number] Payal Quinones MD [facility] [address] [place] [phone] 02/22/2023 10:48:53 02/25/2023 12:10:51 Migraine [id number] G43.909 labs unremarkab le- given pepcid to protect stomach- advised of concern of repeat ketorolac given hx PUD- could reactivate ulcer with recurrent doses- need to monitor stool- may take sumatripta n as directed daily/need s close f/u- able to make appt with pcp later today- given copy of labs and list of meds given. [id number] Griselda Hernandez MD [facility] [address] [place] [phone] 02/26/2023 11:26:09 02/27/2023 10:54:27 Migraine [id number] G43.909 [id number] Kirstin López MD [facility] [address] [place] [id number] 04/14/2023 10:32:12 04/16/2023 11:11:05 Migraine [id number] G43.909 57 yo w/ h/o migraine p/w recurrent migraine in context of significan t stress (loss of grandchild ). C/o associated nausea, but able to tolerate PO and maintain adequate hydration. [facility] provided toradol last month which helped. Took sumatripta n this am without improvemen t in sx. Of note, she has an appointmen t scheduled for f/u re migraines with career development engineer team. Will give 15mg toradol, 4mg zofran and recommende d some PO caffeine. Pt declining IV fluids. Steam Box Hand and pt agree with plan, warning signs/sx reviewed + questions answered. [id number] Payal Quinones MD [facility] [address] [place] [phone] 04/19/2023 12:11:43 04/22/2023 20:13:58 Migraine [id number] G43.909 Advised patient to discuss with her PCP and neurologis t immediatel y after the weekend: patient needs change in migraine medicine management /she is not tolerating sumatripta n well. She has had multiple instead visits for migraines. She is agreeable to IV fluids today-advi sed of red flags and if she worsens over the weekend to go to the ER-patient groggy but better after medication s below. Hopefully she will sleep and this will help her discomfort -she verbalized understand ing to the medic [id number] Payal Quinones MD [facility] [address] [place] [phone] 06/30/2023 13:22:24 07/01/2023 14:41:10 Blepharitis of right eyelid [id number] 69245 H01.003 possible stye continue the warm compresses before applying the erythromyc in ointment and medic reviewed good handwashin g -patient has not finished her prior cephalexin prescripti ons advised to take as directed and finish this prescripti on unless her PCP tells her otherwise. Migraine without aura 56 [id number] G43.009 Patient responded well to Reglan, Benadryl and ketorolac 15 mg IV when I saw her at 05/11-she is requesting same for symptomati c care. Medic will administer . Advised to take her Zofran if she is nauseous every 8 hours. [id number] Stephanie Goldberg MD [facility] [address] [place] [phone] 07/06/2023 18:07:22 07/07/2023 16:13:14 Decreased urine output [id number] R34 Dehydration [id number] E86 .0 [id number] Griselda Hernandez MD [facility] [address] [place] [id number] 07/14/2023 10:33:39 07/14/2023 15:58:46 [id number] Kami Ga MD [facility] [address] [place] [phone] 07/26/2023 18:04:54 07/29/2023 17:00:18 Depressive disorder [id number] F32.A [id number] Payal Quinones MD [facility] [address] [place] [id number] 10/14/2023 10:56:35 10/16/2023 21:19:54 Migraine without aura [id number] G43.009 Patient responded well to Reglan, Benadryl and ketorolac 15 mg IV in the past- she just took 4 mg of zofran- -she is requesting same for symptomati c care. Patient has no history of CKD BUN 8/CR 0.8 02/22/2023. Medic will administer meds that have proven effective in the past.. Due to decreased po- will give LR. Advised to take her Zofran if she is nauseous every 8 hours/geneva triptan twice a day as directed.. Advised her to keep her appointmen t with her PCP in October and to work with PCP to follow-up with neurology Health Concerns Section Related Observation LastModified by Organization Detai ls LastModified Time None Recorded Concern Status LastModified by Organization Details LastModified Time None Recorded Advance Directives Directive None Recorded Payers Insurance Date Sequence Insurance Name Policy Number Policy Shaw Covered Member ID Shaw Member ID Guarantor Name 12/18/2024 1 [facility] - DOS PRIOR TO 2022 - DUAL ELIGIBLE (MEDICARE REPLACEMENT/ADV ANTAGE - HMO) Elida Etienne [id number] Elida Etienne 12/18/2024 1 [facility] - DOS ON OR AFTER 2022 - DUAL ELIGIBLE - [facility] OPTIONS AND ONE CARE (MEDICARE REPLACEMENT/ADV ANTAGE - HMO) Elida Etienne [id number] Elida Etienne Notes Date Note Type Note Provider Name and Address Organization Details Recorded Time 06/30/2023 text/html [facility] Nursing Assessment: Reason For Request: PT reporting migraine for a week>unable to open her eye for a week already . Chief Complaints: Headache PMH: COPD/Asthma Comments: Member reports a hx of migraines - Same has had x 1 week - Requesting pain management - Right eye swelling - Denies drainage - Pollo KELLEY ................... ................... ................... ................... ................... ................... ................... ........ Steam Box Hand Note From Mike Fernandez: [facility] visit for female patient with migraine and right eye swelling. Arrived to patients home. Pt presents conscious and alert. Pt called for visit today due to migraine headaches not responding to prescription medications in addition to swelling in her right eye. Pt reports similar issue with her right eye a little over a month ago being seen at local hospital for corneal abrasion. Pt reports she did not use prescription opthalmic medication given from at that visit. For last two days pt has had swelling in that eye and has been using warm compresses. Pt believes its due to environmental issues concerned about mold and insects in her apartment. Pt has had lengthy history of migraines, currently on sumitriptan with migraines partially managed. Image taken for [facility] review of affected eye. Consulted with [facility] who ordered IV fluids, benadryl, reglan, and toradol, in addition to oral dose of 1g cephalexin. 1 L of normal saline given in addition to listed medications. Patient education provided. Reviewed red flags for ED. ................... ................... ................... ................... ................... ................... ................... ........ Disposition: FulfilledSEGMD: As above. Did take her sumatriptan without relief no more than 6 hours ago. She is also on baclofen tramadol and topiramate. She has been using warm compresses on the right eye without relief for the past 2 days. The upper lid is tender/not really itchy. She denies discharge, visual changes, fever/chills. She has had nausea took her last Zofran hours ago-no vomiting or diarrhea. She is not having significant photophobia unlike the last time we saw her, no focal weakness or numbness. Payal Quinones MD [address] [place] [address],[address], [place], [address], [employer] 06/30/2023 18:17:46 07/06/2023 text/html [facility] Nursing Assessment: Chief Complaints: Headache PMH: COPD/Asthma, Other Allergies: Unknown Comments: Member called to be checked for Migraine headache that started yesterday. Tearful, difficult to understand. Alert and oriented. Does not remember names of medications she takes. Repeating that it is very cold in her house to an issue with her apartment complex. She is very upset about this issue. Does not want to go to the ED Stephanie Goldberg MD [address] [facility],[address], [place], [address], [employer] 07/06/2023 21:55:44 07/14/2023 text/html HPI: mbr with hx of asthma complaints of SOB with exertion, cough green phlegm, fever/chills, speaking in full sentences labored breathing, no Home O2 or albuterol inhaler, states experiencing symptoms for 2day now, refuses to be seen at closes [facility], requesting [facility] visit. mbr understands risks of waiting to be treated. Protocol Used: Cough - Acute Productive Protocol-Based Disposition: Consider [facility] Community clinician, MD/CONTRACT MAIL CARRIER triage, PCP, or Urgent Care Visit within 4 Hours Positive Triage Questions: * [1] MILD difficulty breathing (e.g., minimal/no SOB at rest, SOB with walking, pulse < 100) AND [2] still present when not coughing * Fever > 103 F (39.4 C) * SEVERE coughing spells (e.g., whooping sound after coughing, vomiting after coughing) * [1] Continuous (nonstop) coughing interferes with work or school AND [2] no improvement using cough treatment per Care Advice Negative Triage Questions: * SEVERE difficulty breathing (e.g., struggling for each breath, speaks in single words) * Bluish (or smith) lips or face now * [1] Difficulty breathing AND [2] exposure to flames, smoke, or fumes * [1] Coughed up blood AND [2] > 1 tablespoon (15 ml) (Exception: Blood-tinged sputum.) ................... ................... ................... ................... ................... ................... ................... ........ [facility] Nursing Assessment: Comments: Sushila. Leanne Barrera RN ................... ................... ................... ................... ................... ................... ................... ........ Steam Box Hand Note From Mike Fernandez: Arrived to home for visit. Dispatch had attempted to reach patient by phone without success. Smart care rang door caceres of apartment several times with no answer. CCA attempted again without success ................... ................... ................... ................... ................... ................... ................... ........ Disposition: Unfulfilled Griselda Hernandez MD [address] [facility],[address], [place], [address], Call Britannia 07/14/2023 15:58:43 07/26/2023 text/html CRC Nursing Assessment: Reason For Request: Vomiting and nausea + migraine>shortness of breath Chief Complaints: Nausea/Vomiting, Cough, Shortness of Breath/Dyspnea PMH: COPD/Asthma Allergies: Unknown Comments: N/V x 3-4 days. Feeling tremulous. Reporting BREWSTER and bilateral leg pain. Member is upset, tearful. Alert, answering questions appropriately. Reports shortness of breath. Advised ED for symptoms. Member refused at this time. Instructed to call 911 for worsening signs/symptoms.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
--- OUTSIDE RECORDS SUMMARY | 2025-02-22 06:43 | XMS_ITS | Clinical Summary ---
Author Organization [facility] Address [address] [place] [address] Care Team Providers Care Outdoor Adventure Instructor Name Role Phone Jamel Bloom MD Primary Care Provider Source Comments PLEASE NOTE, if this patient is a minor, it may be UNLAWFUL to discuss sensitive information that is contained in these records (such as FAMILY PLANNING, MENTAL HEALTH or SUBSTANCE ABUSE) with the minor patient's parent or other person without the patient's specific authorization.[facility] Allergies Active Allergy Reactions Criticality Noted Date Comments Eggs 12/08/2015 Per paper chart Menthol Rash 10/02/2022 Phenylephrine 10/02/2022 Trimethobenzamide 10/02/2022 Medications buprenorphine-n aloxone (SUBOXONE FILM) 8-[address] 1 Strip under the tongue 2 (two) times daily Prescribed by Dr. Stiles. 16 Each 2 Active sertraline (ZOLOFT) 50 mg tablet Take 1 Tablet by mouth once daily. 90 Tablet 5 Active albuterol HFA 90 mcg/actuation inhaler Inhale 2 Puffs into the lungs every 6 (six) hours as needed for shortness of breath. 18 g 1 5 Active Active Problems Problem Noted Date Diagnosed Date Tobacco abuse 12/30/2024 Parasomnia, unspecified 04/21/2024 Mild intermittent asthma without complication ([facility]) 12/10/2022 Lack of housing 12/23/2018 Financial problems 12/23/2018 Major depressive disorder, r ecurrent, severe with psychotic features ([facility]) 12/23/2018 Opioid dependence ([facility]) 12/13/2018 Encounters Date Type Department Care Team Description 02/15/2025 Interim Notes Caring [address] [address] Douglas Chadwick, Community Health Worker 01/26/2025 4:00 PM EDT BH/MH Visits [address] [address] Krys Santana [facility] 01/06/2025 9:15 AM EDT BH/MH Visits [address] [phone] Krys Santana [facility] 01/05/2025 Results Follow-Up [address] [address] Maxine Johnson RN 12/30/2024 3:00 PM EDT BH/MH Visits [address] [phone] Krys Santana [facility] 12/30/2024 2:20 PM EDT Office Visit [address] [address] Jamel Bloom MD from Last 3 Months Immunizations Immunization Administration Dates Next Due PNEUMOCOCCAL POLYSACCHARIDE PPV23 (Pneumovax 23) 04/23/2012 PPD 02/28/2023 TDAP 11/11/2018 Family History Medical History Relation Name Comments Other (See Comments) Brother ? septa l defect per paper chart 09/04/12 Cancer Mother stomach Diabetes Mother per above Hypertension Mother per paper chart 05/05/09 Cancer Sister 1 stomach per pap er chart dated 07/2010 Diabetes Sister 2 per paper chart 09/04/12 Relation Name Status Comments Brother Mother Sister 1 Sister 2 Social History Tobacco Use Types Packs/Day Years Used Date Smoking Tobacco: Every Day Smokeless Tobacco: Never Tobacco Cessation:Ready to Q uit: Not Asked; Counseling Given: Not Answered Alcohol Use Standard Drinks/Week Comments No 0 (1 standard drink = 0.6 oz pur e alcohol) Social Connections Answer Date Recorded How often do you feel lonely or isolated from th ose around you? 2 12/30/2024 Financial Resource Strain Answer Date R ecorded Hard to pay for: Food 1 12/30/2024 Stress Answer Date Recorded Do you feel these kinds of stress these days? 2 12/30/2024 Physical Activity Answer Date Recorded Physical Activity 0 04/11/2019 Food Insecurity Answer Date Recorded Hard to pay for: Food 1 12/30/2024 Transportation Needs Answer Date Record ed Hard to pay for: Transportation 1 12/30/2024 Housing Stability Answer Date Recorded What is your housing situation today? 2 12/30/2024 Safety and Environment Answer Date Dante rded Safety 0 04/11/2019 Utilities Answer Date Recorded Hard to pay for: Utilities 1 12/30 Employment Answer Date Recorded Stress 0 04/30/2024 Comments No Sex and Gender Information Value Date Recorded Sex Assigned at Female 11/11/2018 11:30 AM PDT Legal Sex Female 11:36 AM PDT Gender Identity Female 11/11/2018 11:30 AM PDT Sexual Orientation Lesbian or Gomez 11/11/2018 11 :30 AM PDT Last Filed Vital Signs Vital Sign Reading Time Taken Comments Blood Pressure 115/74 12/30/2024 2:21 PM EDT Pulse 77 12/30/2024 2:21 PM EDT Temperature 36.7 C (98.1 F) 12/30/2024 2:21 PM EDT Respiratory Rate 18 12/30/2024 2:21 PM EDT Oxygen Saturation 95% 11/13/2023 11: 07 AM EDT Inhaled Oxygen Concentration - - Weight 56.2 kg (123 lb 12.8 oz) 12/30/2024 2:21 PM EDT Height 157.5 cm (5' 2 ) 12/30/2024 2:21 PM EDT Body Mass Index 22.64 12/30/2024 2:21 PM EDT Plan of Treatment Upcoming Encounters Date Type Department Care Team (Late st Contact Info) Description 02/23/2025 3:30 PM EDT / Visits [facility] [address] [place] [phone] Krys Santana [facility] [address] [place] [address] 02/25/2025 2:00 PM EDT BH/MH Visits [facility] [address] [place] [phone] Eduardo Taylor FNP [address] [place] [address] 03/01/2025 1:40 PM EDT Office Visit [address] [phone] Becky Busch, [employer] [address] [facility] [place], [place] [phone] 03/16/2025 4:00 PM EDT Office Visit [address] [phone] Shadia Ragland, [facility] [address] [place] [address] Health Maintenance Due Date Last Done Comments HPV Screening 1967 Pap + HPV 1967 Medicare Annual Wellness Visit 1985 Cervical Cancer Screening 1988 Pap Smear 1988 Breast Cancer Screening (Mammogram) 2007 CT Colonography 2012 Colonoscopy 2012 Colorectal Cancer Screening 2012 FIT/gFOBT 2012 Fecal DNA 2012 Flexible Sigmoidoscopy 2012 Imm-Pneumococcal 50+ (2 of 2 - PCV) 04/23/2013 04/23/2012 Imm-Zoster, Recombinant (1 of 2) 2017 [id number] ( - season) 2024 Depression Monitoring 04/01/2025 12/30/2024 , 11/13/2023, 07/02/2023, Additional history exists Imm-Influenza (#1) 2025 Diabetes Screening 12/20/2025 02/22/2025, 0 12/20/2024, 10/02/2024, Additional history exists Anxiety Screening 12/30/2025 12/30/2024 Hypertension Screening (#1) 12/30/2025 Tobacco Cessation Counseling (#1) 12/30/2025 025 Lipid Screening 09/25/2029 09/25/2024, 06/19, 03/21/2022, Additional history exists Imm-DTaP/Tdap/Td (3 - Td or Tdap) 01/26/2035 025, 11/11/2018 HIV Screening Completed 09/25/2024, 05/10/2017 Hepatitis C Screening Completed 09/25/2024, 023 Alcohol and Drug Screen Completed 12/31/19 25, 11/13/2023, 11/28/2018, Additional history exists Cervical Ablation/Cold-Knife Conization Discontinued Cervical Cryotherapy Discontinued Colposcopy Discontinued Endometrial Biopsy Discontinued Excision/Leep Discontinued HPV Genotyping Discontinued Imm-Hepatitis B Discontinued Vaginal Pap Discontinued Vulvoscopy Discontinued Procedures Procedure Name Priority Date/Time Associated Diagnosis Comments IMAGING SCANNED DOCUMENT 02/12/2025 3:00 AM EDT REFERRAL SCANNED DOCUMENT 02/02/2025 3:00 AM EDT OTHER ORDERS SCANNED DOCUMENT 01/05/2025 3:00 AM EDT PROCEDURE SCANNED DOCUMENT 12/28/2024 3:00 AM EDT REFERRAL SCANNED DOCUMENT 12/21/2024 3:00 AM EDT OTHER ORDERS SCANNED DOCUMENT 12/15/2024 3:00 AM EDT OTHER ORDERS SCANNED DOCUMENT 12/14/2024 3:00 AM EDT OTHER ORDERS SCANNED DOCUMENT 11/30/2024 3:00 AM EDT HIV 1/2 AG & AB W/RFLX (4TH GEN) Routine 09/25/2024 3:38 PM EST Need for hepatitis B screening test HEPATITIS C AB W/RFLX HCV RNA, QT, RT PCR Routine 09/25/2024 3:38 PM EST Need for hepatitis B screening test HEMOGLOBIN GLYCOSYLATED A1C Routine 09/25/2024 3:38 PM EST Weight loss Abnormal finding of blood chemistry, unspecified LIPID PANEL Routine 09/25/2024 3:38 PM EST Weight loss Abnormal finding of blood chemistry, unspecified from Last 3 Months or Most Recently Relevant to Health Maintenance Results * IMAGING SCANNED DOCUMENT (02/12/2025 3:00 AM EDT) 02/12/2025 3:00 AM EDT Jamel Bloom MD SCAN IMAGING Final Result * REFERRAL SCANNED DOCUMENT (02/02/2025 3:00 AM EDT) Only the most recent of2 resultswithin the time period is included. 02/02/2025 3:00 AM EDT Chdc Provider Default SCAN REFERRAL Final Resu lt * OTHER ORDERS SCANNED DOCUMENT (01/05/2025 3:00 AM EDT) Only the most recent of4 resultswithin the time period is included. 01/05/2025 3:00 AM EDT Jamel Bloom MD SCAN OTHER ORDERS Final Resu lt * PROCEDURE SCANNED DOCUMENT (12/28/2024 3:00 AM EDT) 12/28/2024 3:00 AM EDT Result [facility] Ciaran Art TELEGRAPH SERVICE RATER SCAN PROCEDURES Fi nal Result * HEPATITIS C AB W/RFLX HCV RNA, QT, RT PCR (09/25/2024 3:38 PM EST) HEPATITIS C ANTIBODY NON-REACT SHAW NON-REACT SHAW [facility] Comment: HCV antibody was non-reactive. There is no laboratory evidence of HCV infection. In most cases, no further action is required. However, if recent HCV exposure is suspected, a test for HCV RNA (test code 84084) is suggested. For additional information please refer to http://education.Melodigram.Conferize/faq/TBG24n5 (This link is being provided for informational/ educational purposes only.) Blood Blood / Unknown 09/25/2024 3 :38 PM EST 09/25/2024 3:40 PM EST Narrative [facility] - 09/26/2024 3:09 PM EST FASTING:YES Ciaran [employer] TELEGRAPH SERVICE [facility] LAB - BLOOD DRAW E dited Result - Final Performing Organization Address [facility] Co de Phone Number [facility] [address] [address], [facility] [address] [address] * HIV 1/2 AG & AB W/RFLX (4TH GEN) (09/25/2024 3:38 PM EST) Pathologist [facility] HIV AG/AB, 4TH GEN NON-REAC TIVE NON-REAC TIVE [facility] Comment: HIV-1 antigen and HIV-1/HIV-2 antibodies were not detected. There is no laboratory evidence of HIV infection. PLEASE NOTE: This information has been disclosed to you from records whose confidentiality may be protected by state law. If your state requires such protection, then the state law prohibits you from making any further disclosure of the information without the specific written consent of the person to whom it pertains, or as otherwise permitted by law. A general authorization for the release of medical or other information is NOT sufficient for this purpose. For additional information please refer to http://education.myParcelDelivery/faq/HCO907 (This link is being provided for informational/ educational purposes only.) The performance of this assay has not been clinically validated in patients less than 2 years old. Blood Blood / Unknown 09/25/2024 3 :38 PM EST 09/25/2024 3:40 PM EST Narrative [facility] - 09/26/2024 3:09 PM EST FASTING:YES Ciaran Art [facility] - BLOOD DRAW F inal Result Performing Organization Address [facility]/ZIP Co de Phone Number [facility] [address] [address], [facility] [address] [address] * (ABNORMAL) HEMOGLOBIN GLYCOSYLATED A1C (09/25/2024 3:38 PM EST) HEMOGLOBIN A1C 5.9(H) <5.7 % of total Hgb [facility] Comment: For someone without known diabetes, a hemoglobin A1c value between 5.7% and 6.4% is consistent with prediabetes and should be confirmed with a follow-up test. For someone with known diabetes, a value <7% indicates that their diabetes is well controlled. A1c targets should be individualized based on duration of diabetes, age, comorbid conditions, and other considerations. This assay result is consistent with an increased risk of diabetes. Currently, no consensus exists regarding use of hemoglobin A1c for diagnosis of diabetes for children. Blood Blood / Unknown 09/25/2024 3 :38 PM EST 09/25/2024 3:40 PM EST Narrative [facility] - 09/26/2024 3:09 PM EST FASTING:YES Ciaran Art TELEGRAPH SERVICE RATER LAB - BLOOD DRAW E dited Result - Final [facility] [address] [address], [facility] [address] [place] [address] * (ABNORMAL) LIPID PANEL (09/25/2024 3:38 PM EST) CHOLESTEROL, TOTAL 237(H) <200 mg/dL [facility] HDL CHOLESTEROL 103 > OR = 50 mg/dL [facility] TRIGLYCERIDES 96 <150 mg/dL [facility] LDL-CHOLESTEROL 114(H) 99 mg/dL (calc) [facility] Comment: Reference range: <100 Desirable range <100 mg/dL for primary prevention; <70 mg/dL for patients with CHD or diabetic patients with > or = 2 CHD risk factors. LDL-C is now calculated using the Marquis calculation, which is a validated novel method providing better accuracy than the Friedewald equation in the estimation of LDL-C. Jovani WU et al. AVIVA. 2013;310(19): 1279-0718 (http://education.Kasidie.com/faq/MBJ847) CHOL/HDLC RATIO 2.3 <5.0 (calc) [employer] NON-HDL CHOLESTEROL 134(H) <130 mg/dL (calc) [facility] Comment: For patients with diabetes plus 1 major ASCVD risk factor, treating to a non-HDL-C goal of <100 mg/dL (LDL-C of <70 mg/dL) is considered a therapeutic option. Blood Blood / Unknown 09/25/2024 3 :38 PM EST 09/25/2024 3:40 PM EST Narrative [facility] - 09/26/2024 3:09 PM EST FASTING:YES Ciaran Art TELEGRAPH SERVICE RATER LAB - BLOOD DRAW F inal Result [facility] [employer] [address] [address], [facility] [address] [place] [address] from Last 3 Months or Most Recently Relevant to Health Maintenance Insurance [facility] [place] [id number] Care Teams Outdoor Adventure Instructor Relationship Specialty Start Date End Date Jamel Bloom MD [address] [place] [address] PCP - General Internal Medicine 03/10/24
--- OUTSIDE RECORDS SUMMARY | 2025-02-22 06:43 | XMS_ITS | Clinical Summary ---
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 12 tablet 09/06/2024 Active naproxen (NAPROSYN) 500 mg tablet Take 1 tablet (500 mg total) by mouth 2 (two) times a day with meals for 7 days. 14 each 02/13/2025 02/21/20 25 metoclopramide (REGLAN) 10 mg tablet Take 0.5 tablets (5 mg total) by mouth 3 (three) times a day if needed (Via) for up to 5 days. 8 each 02/13/2025 02/19/20 25 Encounters Date Type Department Care Team Description 02/22/2025 3:25 AM EDT - 02/22/2025 5:43 AM EDT Emergency [facility] Emergency [address] [place] [phone] Discharge Disposition: Home or Self Care 02/13/2025 6:43 AM EDT - 02/13/2025 1:30 PM EDT Emergency [facility] Emergency [address] [place] [phone] Hieu Lomas MD Migraine without aura and with status migrainosus, not intractable (Primary Dx) Discharge Disposition: Home or Self Care 01/30/2025 7:24 AM EDT - 01/30/2025 12:36 PM EDT Emergency [facility] Emergency [address] [place] [phone] Migraine without status migrainosus, not intractable, unspecified migraine type (Primary Dx); Other chest pain; Chronic abdominal pain Discharge Disposition: Home or Self Care 12/28/2024 1:09 PM EDT - 12/28/2024 11:59 PM EDT Hospital Encounter [facility] Neurodiagnostic [address] [place] [phone] Anesthesia of skin; Paresthesia of skin Discharge Disposition: Home or Self Care 12/21/2024 12:43 AM EDT - 12/21/2024 8:05 AM EDT Emergency [facility] Emergency [address] [place] [phone] Elpidio Blanco MD Chest wall pain (Primary Dx); Other migraine without status migrainosus, not intractable Discharge Disposition: Home or Self Care from Last 3 Months Surgical History Surgery Date Site/Laterality Comments BREAST BIOPSY HERNIA REPAIR KIDNEY STONE SURGERY Medical History Medical History Date Comments Asthma Substance use disorder Kidney stone Social History Tobacco Use Types Packs/Day Years Used Date Smoking Tobacco: Some Days Cigarettes Smokeless Tobacco: Never Tobacco Cessation:Ready to Q uit: Not Asked; Counseling Given: Not Answered Alcohol Use Standard Drinks/Week Comments Not Currently 0 (1 standard drink = 0.6 oz pur e alcohol) Comments Unknown Sex and Gender Information Value Date Recorded Sex Assigned at Female 09/06/2024 8:18 AM EST Legal Sex Female 4:29 AM EST Gender Identity Female 09/06/2024 8:18 AM EST Sexual Orientation Lesbian or Gomez 09/06/2024 8: 18 AM EST Obstetrics History Last Filed Vital Signs Vital Sign Reading Time Taken Comments Blood Pressure 115/77 02/22/2025 3:36 AM EDT Pulse 80 02/22/2025 3:36 AM EDT Temperature 36.9 C (98.5 F) 02/22/2025 3:36 AM EDT Respiratory Rate 18 02/22/2025 3:36 AM EDT Oxygen Saturation 98% 02/22/2025 3:36 AM EDT Inhaled Oxygen Concentration - - Weight 54.4 kg (120 lb) 02/22/2025 3:36 AM EDT Height 160 cm (5' 3 ) 02/22/2025 3:36 AM EDT Body Mass Index 21.26 02/22/2025 3:36 AM EDT Plan of Treatment Health Maintenance Due Date Last Done Comments Breast Cancer Screening 1967 Hepatitis A Vaccines (1 of 2 - Risk 2-dose series) 1986 Hepatitis B Vaccines (1 of 3 - 19+ 3-dose series) 1986 Cervical Cancer Screening: Pap Smear 1988 Pneumococcal Vaccine: 50+ Years (2 of 2 - PCV) 04/23/2013 04/23/2012 Pneumococcal Vaccine: Pediatrics (0 to 5 Years) and At-Risk Patients (6 to 64 Years) (2 of 2 - PCV) 04/23/2013 04/23/2012 Zoster Vaccines (1 of 2) 2017 Colorectal Cancer Screening: Colonoscopy 07/22/2022 Medicare Annual Wellness Visit 07/22/2022 Social Influencers of Health Screening 07/22/2022 COVID-19 Vaccine ( season) 2024 Influenza Vaccine (#1) 2025 Depression Screening 12/30/2025 12/30/2024 Cholesterol Screening (Lipid Panel) 09/25/2029 09/25/2024, 09/25/2024, 07/02/2023, Additional history exists DTaP,Tdap,and Td Vaccines (3 - Td or Tdap) 01/26/2035 01/26/2025, 11/11/2018 HIV Screening Completed 05/10/2017 Hepatitis C Screening Completed 09/25/2024, 023 HIB Vaccines Aged Out No longer eligi ble based on patient's age to complete this topic HPV Vaccines Aged Out No longer eligi ble based on patient's age to complete this topic IPV Vaccines Aged Out No longer eligi ble based on patient's age to complete this topic MMR Vaccines Aged Out No longer eligi ble based on patient's age to complete this topic Meningococcal ACWY Vaccine Aged Out N o longer eligible based on patient's age to complete this topic Meningococcal B Vaccine Aged Out No l onger eligible based on patient's age to complete this topic RSV Immunization Patients Under 20 months Aged Out No longer eligible based on patient's age to complete this topic Varicella Vaccines Aged Out No longer eligible based on patient's age to complete this topic Procedures Procedure Name Priority Date/Time Associated Diagnosis Comments CBC WITH AUTO DIFFERENTIAL STAT 02/22/2025 3:38 AM EDT LIPASE STAT 02/22/2025 3:38 AM EDT COMPREHENSIVE METABOLIC PANEL STAT 02/22/2025 3:38 AM EDT CBC AND DIFFERENTIAL STAT 02/22/2025 3:38 AM EDT GAUTAM URINE CULTURE TUBE STAT 02/13/2025 12:33 PM EDT URINALYSIS WITH REFLEX MICROSCOPIC AND CULTURE STAT 02/13/2025 12:33 PM EDT URINALYSIS WITH REFLEX MICROSCOPIC AND CULTURE STAT 02/13/2025 12:33 PM EDT CULTURE URINE STAT 02/13/2025 12:33 PM EDT CBC WITH AUTO DIFFERENTIAL STAT 02/13/2025 8:15 AM EDT COMPREHENSIVE METABOLIC PANEL STAT 02/13/2025 8:15 AM EDT CBC AND DIFFERENTIAL STAT 02/13/2025 8:15 AM EDT ECG ANNOTATED 02/01/2025 ECG 12-LEAD STAT 01/30/2025 8:00 AM EDT D-DIMER STAT 01/30/2025 7:52 AM EDT TROPONIN I HIGH SENSITIVITY STAT 01/30/2025 7:52 AM EDT XR CHEST 2 VIEWS STAT 01/30/2025 7:12 AM EDT CBC WITH AUTO DIFFERENTIAL STAT 01/30/2025 4:57 AM EDT B-TYPE NATRIURETIC PEPTIDE STAT 01/30/2025 4:57 AM EDT MAGNESIUM STAT 01/30/2025 4:57 AM EDT LIPASE STAT 01/30/2025 4:57 AM EDT COMPREHENSIVE METABOLIC PANEL STAT 01/30/2025 4:57 AM EDT CBC AND DIFFERENTIAL STAT 01/30/2025 4:57 AM EDT TROPONIN I HIGH SENSITIVITY STAT 01/30/2025 4:57 AM EDT ECG 12-LEAD STAT 01/30/2025 4:19 AM EDT EMG 2 LIMBS Routine 12/28/2024 2:27 PM EDT Anesthesia of skin Paresthesia of skin ECG ANNOTATED 12/22/2024 ECG ANNOTATED 12/22/2024 TROPONIN I HIGH SENSITIVITY STAT 12/21/2024 1:17 AM EDT ECG 12-LEAD STAT 12/21/2024 1:15 AM EDT XR CHEST 2 VIEWS STAT 12/21/2024 12:1 2 AM EDT CBC WITH AUTO DIFFERENTIAL STAT 12/21/2024 12:03 AM EDT B-TYPE NATRIURETIC PEPTIDE STAT 12/21/2024 12:03 AM EDT MAGNESIUM STAT 12/21/2024 12:03 AM EDT LIPASE STAT 12/21/2024 12:03 AM EDT COMPREHENSIVE METABOLIC PANEL STAT 12/21/2024 12:03 AM EDT CBC AND DIFFERENTIAL STAT 12/21/2024 12:03 AM EDT TROPONIN I HIGH SENSITIVITY STAT 12/21/2024 12:03 AM EDT ECG 12-LEAD STAT 12/20/2024 11:42 PM EDT from Last 3 Months Results * CBC auto differential (02/22/2025 3:38 AM EDT) Only the most recent of4 resultswithin the time period is included. [facility] WBC 7.6 4.8 - 10.8 K/mcL LAB HEMETOLOGY METHOD 02/22/2025 4:38 AM [facility] RBC 4.10 3.80 - 4.80 M/mcL LAB HEMETOLOGY METHOD 02/22/2025 4:38 AM [facility] Hemoglobin 12.2 11.5 - 16.0 g/dL LAB HEMETOLOGY METHOD 02/22/2025 4:38 AM [facility] Hematocrit 36.8 35.0 - 47.0 % LAB HEMETOLOGY METHOD 02/22/2025 4:38 AM [facility] MCV 90.4 79.0 - 98.0 FL LAB HEMETOLOGY METHOD 02/22/2025 4:38 AM [facility] MCH 30.0 27.0 - 32.0 pcg LAB HEMETOLOGY METHOD 02/22/2025 4:38 AM [facility] MCHC 33.2 32.0 - 37.0 g/dL LAB HEMETOLOGY METHOD 02/22/2025 4:38 AM [facility] RDW 12.5 11.0 - 15.0 % LAB HEMETOLOGY METHOD 02/22/2025 4:38 AM [facility] Platelets 212 130 - 400 K/mcL LAB HEMETOLOGY METHOD 02/22/2025 4:38 AM [facility] MPV 10.6 7.0 - 11.0 FL LAB HEMETOLOGY METHOD 02/22/2025 4:38 AM [facility] NRBC 0.0 <1.0 % LAB HEMETOLOGY METHOD 02/22/2025 4:38 AM [facility] NRBC Absolute 0.00 <0.10 K/mcL LAB HEMETOLOGY METHOD 02/22/2025 4:38 AM [facility] Neutrophils Relative 73.2 % LAB HEMETOLOGY METHOD 02/22/2025 4:38 AM [facility] Lymphocytes Relative 19.2 % LAB HEMETOLOGY METHOD 02/22/2025 4:38 AM [facility] Monocytes Relative 6.1 % LAB HEMETOLOGY METHOD 02/22/2025 4:38 AM [facility] Eosinophils Relative 0.9 % LAB HEMETOLOGY METHOD 02/22/2025 4:38 AM [facility] Basophils Relative 0.3 % LAB HEMETOLOGY METHOD 02/22/2025 4:38 AM [facility] Immature Granulocytes Relative 0.3 % LAB HEMETOLOGY METHOD 02/22/2025 4:38 AM [facility] Neutrophils Absolute 5.55 1.50 - 7.00 K/mcL LAB HEMETOLOGY METHOD 02/22/2025 4:38 AM [facility] Lymphocytes Absolute 1.45 1.00 - 5.00 K/mcL LAB HEMETOLOGY METHOD 02/22/2025 4:38 AM [facility] Monocytes Absolute 0.46 0.20 - 1.00 K/mcL LAB HEMETOLOGY METHOD 02/22/2025 4:38 AM [facility] Eosinophils Absolute 0.07 0.00 - 0.50 K/mcL LAB HEMETOLOGY METHOD 02/22/2025 4:38 AM EDT [facility] Basophils Absolute 0.02 0.00 - 0.20 K/mcL LAB HEMETOLOGY METHOD 02/22/2025 4:38 AM EDT [facility] Immature Granulocytes Absolute 0.02 0.00 - 0.03 K/[facility] LAB HEMETOLOGY METHOD 02/22/2025 4:38 AM EDT [facility] Blood Venous blood specimen / Unknown Venipuncture / Unknown 02/22/2025 3:38 AM EDT 02/22/2025 4:33 AM EDT us Elpidio Blanco MD LAB BLOOD ORDERABLES Final Resu lt Performing Organization Address [facility] de Phone Number [facility] [address] [place] [address], [place] [phone] * Lipase (02/22/2025 3:38 AM EDT) Only the most recent of3 resultswithin the time period is included. Lipase 28 13 - 75 unit/L LAB CHEMISTRY METHOD 02/22/2025 4:57 AM EDT [facility] Blood Venous blood specimen / Unknown Venipuncture / Unknown 02/22/2025 3:38 AM EDT 02/22/2025 4:33 AM EDT us Elpidio Blanco MD LAB BLOOD ORDERABLES Final Resu lt Performing Organization Address [facility]/ZIP Co de Phone Number [facility] [address] [place] [address], [place] [phone] * (ABNORMAL) Comprehensive metabolic panel (02/22/2025 3:38 AM EDT) Only the most recent of4 resultswithin the time period is included. Sodium 137 133 - 145 mmol/L LAB CHEMISTRY METHOD 02/22/2025 5:08 AM EDT [facility] Potassium 4.5 3.5 - 5.5 mmol/L LAB CHEMISTRY METHOD 02/22/2025 5:08 AM [facility] Chloride 103 96 - 110 mmol/L LAB CHEMISTRY METHOD 02/22/2025 5:08 AM [facility] CO2 32 21 - 32 mmol/L LAB CHEMISTRY METHOD 02/22/2025 5:08 AM [facility] Anion Gap 2(L) 3 - 11 LAB CHEMISTRY METHOD 02/22/2025 5:08 AM [facility] Glucose 102(H) 70 - 100 mg/dL LAB CHEMISTRY METHOD 02/22/2025 5:08 AM [facility] BUN 21 5 - 25 mg/dL LAB CHEMISTRY METHOD 02/22/2025 5:08 AM [facility] Creatinine 0.88 0.50 - 1.10 mg/dL LAB CHEMISTRY METHOD 02/22/2025 5:08 AM [facility] eGFR 77 >=60 mL/min/1. 73m2 LAB CHEMISTRY METHOD 02/22/2025 5:08 AM [facility] Comment:Calculation based on the Chronic Kidney Disease Epidemiology Collaboration (CKD-EPI) equation refit without adjustment for race. BUN/Creatinine Ratio 23.9 LAB CHEMISTRY METHOD 02/22/2025 5:08 AM [facility] Calcium 9.1 8.5 - 10.5 mg/dL LAB CHEMISTRY METHOD 02/22/2025 5:08 AM [facility] AST (SGOT) 20 10 - 42 unit/L LAB CHEMISTRY METHOD 02/22/2025 5:08 AM [facility] ALT (SGPT) 42 10 - 60 unit/L LAB CHEMISTRY METHOD 02/22/2025 5:08 AM [facility] Alkaline Phosphatase 90 42 - 121 unit/L LAB CHEMISTRY METHOD 02/22/2025 5:08 AM [facility] Total Protein 7.3 6.0 - 8.0 g/dL LAB CHEMISTRY METHOD 02/22/2025 5:08 AM EDT [facility] Albumin 4.0 3.2 - 5.0 g/dL LAB CHEMISTRY METHOD 02/22/2025 5:08 AM EDT [facility] Total Bilirubin 0.8 0.0 - 1.4 mg/dL LAB CHEMISTRY METHOD 02/22/2025 5:08 AM T [facility] Blood Venous blood specimen / Unknown Venipuncture / Unknown 02/22/2025 3:38 AM EDT 02/22/2025 4:33 AM EDT us Elpidio Blanco MD LAB BLOOD ORDERABLES Final Resu lt [facility] [address] [place] [address], [place] [phone] * (ABNORMAL) Urinalysis with reflex microscopic and culture (02/13/2025 12:33 PM EDT) Specific [place] Urine 1.017 1.003 - 1.030 LAB URINALYSIS - AUTOMATED METHOD 02/13/2025 1:40 PM [facility] pH, Urine 6.5 5.0 - 8.0 pH LAB URINALYSIS - AUTOMATED METHOD 02/13/2025 1:40 PM [facility] Leukocytes, Urine Moderate(A) Negative LAB URINALYSIS - AUTOMATED METHOD 02/13/2025 1:40 PM [facility] Nitrite, Urine Negative Negative LAB URINALYSIS - AUTOMATED METHOD 02/13/2025 1:40 PM [facility] Protein, Urine Negative <=Trace mg/dL LAB URINALYSIS - AUTOMATED METHOD 02/13/2025 1:40 PM [facility] Glucose, Urine Negative Negative mg/dL LAB URINALYSIS - AUTOMATED METHOD 02/13/2025 1:40 PM [facility] Ketones, Urine Negative Negative mg/dL LAB URINALYSIS - AUTOMATED METHOD 02/13/2025 1:40 PM EDT [facility] Urobilinogen , Urine 1.0 0.2 - 1.0 mg/dL LAB URINALYSIS - AUTOMATED METHOD 02/13/2025 1:40 PM EDT [facility] Bilirubin, Urine Negative Negative LAB URINALYSIS - AUTOMATED METHOD 02/13/2025 1:40 PM EDT [facility] Blood, Urine Negative Negative LAB URINALYSIS - AUTOMATED METHOD 02/13/2025 1:40 PM EDT [facility] RBC, Urine 0.2 0 - 4 /HPF LAB URINALYSIS - AUTOMATED METHOD 02/13/2025 1:40 PM EDT [facility] WBC, Urine 8.3(H) 0 - 4 /HPF LAB URINALYSIS - AUTOMATED METHOD 02/13/2025 1:40 PM EDT [facility] Squamous Epithelial, Urine 53 0 - 60 /LPF LAB URINALYSIS - AUTOMATED METHOD 02/13/2025 1:40 PM EDT [facility] Bacteria, Urine Few(A) Negative /HPF LAB URINALYSIS - AUTOMATED METHOD 02/13/2025 1:40 PM T [facility] Hyaline Casts, Urine 0.8 0 - 3 /LPF LAB URINALYSIS - AUTOMATED METHOD 02/13/2025 1:40 PM T [facility] Urine Urine specimen obtained by clean catch procedure / Unknown Non-blood Collection / Unknown 02/13/2025 12:33 PM EDT 02/13/2025 12:52 PM EDT us Yuliya Dockery MD LAB URINE ORDERABLES Fin al Result [facility] [address] [place] [address], * Gautam urine culture tube (02/13/2025 12:33 PM EDT) Pathologist [facility] Extra Tube Hold for add-ons. 02/13/2025 2:01 PM EDT [facility] Comment:Auto resulted. Urine Urine specimen obtained by clean catch procedure / Unknown Non-blood Collection / Unknown 02/13/2025 12:33 PM EDT 02/13/2025 12:52 PM EDT Yuliya Dockery MD LAB URINE ORDERABLES Fin al Result Performing Organization Address [facility]/ZIP Co de Phone Number [facility] [address] [place] [address], [place] [phone] * Culture urine (02/13/2025 12:33 PM EDT) [facility] Culture, Urine No growth 02/14/2025 10:43 AM EDT [facility] Urine Urine specimen obtained by clean catch procedure / Unknown Non-blood Collection / Unknown 02/13/2025 12:33 PM EDT 02/13/2025 1:40 PM EDT Yuliya Dockery MD LAB MICROBIOLOGY - GENER AL ORDERABLES Final Result Performing Organization Address [facility]/ZIP Co de Phone Number [facility] [address] [place] [address], [place] [phone] * ECG-Annotated (02/01/2025) Only the most recent of3 resultswithin the time period is included. Provider Onbase ECG ORDERABLES Final Result * ECG 12 lead (01/30/2025 8:00 AM EDT) Only the most recent of4 resultswithin the time period is included. Ventricular Rate ECG 69 BPM GEMUSE Atrial Rate 69 BPM GEMUSE P-R Interval 178 ms GEMUSE QRS Duration 88 ms GEMUSE Q-T Interval 420 ms GEMUSE QTc 450 ms GEMUSE P Wave [place] 70 degrees GEMUSE R [place] 55 degrees GEMUSE T [place] 43 degrees GEMUSE ECG Interpretation Normal sinus rhythm Possible Left atrial enlargement Borderline ECG When compared with ECG of 30-JAN-2025 04:19, (unconfirmed) No significant change was found Confirmed by CLOTILDE GILLIS ([id number]) on 01/30/2025 12:57:31 PM GEMUSE 01/30/2025 8:00 AM EDT 01/30/2025 12:57 PM EDT Yuliya Dockery MD ECG ORDERABLES Final Re sult Performing Organization Address [facility]/ZIP Co de Phone Number GEMUSE * Troponin I high sensitivity (01/30/2025 7:52 AM EDT) Only the most recent of4 resultswithin the time period is included. [facility] High Sensitivity Troponin I 7 <=54 ng/L LAB CHEMISTRY METHOD 01/30/2025 9:13 AM EDT [facility] Blood Venous blood specimen / Unknown Venipuncture / Unknown 01/30/2025 7:52 AM EDT 01/30/2025 8:46 AM EDT Narrative [facility] - 01/30/2025 9:13 AM EDT High levels of biotin in samples may falsely decrease hsTroponin values. Use caution when interpreting hsTroponin results in patients taking biotin who exhibit renal impairment (eGFR <60) or in patients taking more than 20 mg/day of biotin. Yuliya Dockery MD LAB BLOOD ORDERABLES Fin al Result Performing Organization Address [facility]/ZIP Co de Phone Number [facility] [address] [place] [address], * D-dimer, quantitative (01/30/2025 7:52 AM EDT) [facility] D-Dimer, Quant (D-DU) <150 <=230 ng/mL DDU LAB COAGULATION METHOD 01/30/2025 8:58 AM EDT [facility] Blood Venous blood specimen / Unknown Venipuncture / Unknown 01/30/2025 7:52 AM EDT 01/30/2025 8:46 AM EDT Narrative [facility] - 01/30/2025 8:58 AM EDT D-Dimer <230 ng/mL (D-Dimer units) is the threshold for exclusion of DVT/PE. D-Dimer may be elevated in: Critically ill, severely infected, trauma patients, DIC, acute CVA, acute VT, unstable angina, AF, old age, , and smoking. D-Dimer may be decreased with: Initiation of heparin therapy and oral anticoagulants. us Hina ELY LAB BLOOD ORDERABLES Final Re sult [facility] [address] [place] [address], [place] [phone] * XR Chest 2 Views (01/30/2025 7:12 AM EDT) Only the most recent of2 resultswithin the time period is included. Anatomical Region Laterality Modality Body Radiographic Kamala ging 01/30/2025 9:00 AM EDT Impressions 01/30/2025 9:00 AM EDT FINDINGS/IMPRESSION: Mild hyperinflation with diffuse interstitial opacities. No overt pulmonary edema or pleural effusion. No acute osseous abnormality. -------- FINAL REPORT -------- Dictated By: Fab Escobar Dictated Date: 01/30/2025 09:00 ET Assigned Physician: Fab Escobar Reviewed and Electronically Signed By: Fab Escobar Signed Date: 01/30/2025 09:00 ET Workstation ID: [id number] Transcribed By: Self Edit Transcribed Date: 01/30/2025 09:00 ET Narrative 01/30/2025 9:00 AM EDT XR CHEST 2 VIEWS INDICATION: chest pain TECHNIQUE: XR CHEST 2 VIEWS COMPARISON: No priors available. Procedure Note Fab Escobar MD - 06/14/2025 XR CHEST 2 VIEWS INDICATION: chest pain TECHNIQUE: XR CHEST 2 VIEWS COMPARISON: No priors available. IMPRESSION: FINDINGS/IMPRESSION: Mild hyperinflation with diffuse interstitialopacities. No overt pulmonary edema or pleural effusion. No acuteosseous abnormality. -------- FINAL REPORT -------- Dictated By: Fab Escobar Dictated Date: 01/30/2025 09:00 ET Assigned Physician: Fab Escobar Reviewed and Electronically Signed By: Fab Escobar Signed Date: 01/30/2025 09:00 ET Workstation ID: [id number] Transcribed By: Self Edit Transcribed Date: 01/30/2025 09:00 ET Yuliya Dockery MD IMG XR PROCEDURES Final Result * B-type natriuretic peptide (01/30/2025 4:57 AM EDT) Only the most recent of2 resultswithin the time period is included. BNP 14 <=100 pcg/mL LAB CHEMISTRY METHOD 01/30/2025 6:02 AM EDT [facility] Blood Venous blood specimen / Unknown Venipuncture / Unknown 01/30/2025 4:57 AM EDT 01/30/2025 5:17 AM EDT Yuliya Dockery MD LAB BLOOD ORDERABLES Fin al Result [facility] [address] [place] [address], [place] [phone] * Magnesium (01/30/2025 4:57 AM EDT) Only the most recent of2 resultswithin the time period is included. Magnesium 2.0 1.9 - 2.6 mg/dL LAB CHEMISTRY METHOD 01/30/2025 5:53 AM EDT [facility] Blood Venous blood specimen / Unknown Venipuncture / Unknown 01/30/2025 4:57 AM EDT 01/30/2025 5:17 AM EDT us Yuliya Dockery MD LAB BLOOD ORDERABLES Fin al Result [facility] [address] [place] [address], [place] [phone] * EMG two limbs (12/28/2024 2:27 PM EDT) Narrative Margaux Cobb MD - 12/28/2024 4:23 PM EDT See report in chart review Procedure Note Margaux Cobb MD - 12/28/2024 See report in chart review us Ciaran Art FLAP PRESSER NEUROLOGY ORDERABLES Final Result from Last 3 Months Insurance [facility] MEDIC[facility] Member Subscriber Plan / Payer (Ef fective 2024-Present) Name:ELIDA LOTT Relation to Subscriber:Self Name:Elida Lott Payer ID:[id number] Group ID:[id number] Type:Not on file Address: [facility] [address] [id number] Care Teams Water Softener Servicer And Installer Relationship 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
--- NOTE | 2025-02-22 07:52 | PC.NURSE ---
Patient is a 59-year-old female who presents emergency department for evaluation of a headache for the past 6 days with assoc n/v and photophobia. Patient seen recently with the same complaint. She admits to a history of migraine headaches, onset of this migraine was 6 days ago, has not taken any OTC analgesics, has previously been prescribed medication for migraines but states it does not work Her current headache is bilateral with associated photophobia. Has nausea poor appetite. Patient alert and oriented. Lungs clear bilat. Respirations even and non-labored. Abdomen flat, soft, non-tender with positive bowel sounds. No LE edema noted.
[2025-02-22 08:28] LABS: MANUAL DIFF FLAG NO
[2025-02-22 08:37] LABS: Hematocrit 36.0 % (37.0-47.0); Hemoglobin 12.0 g/dl (12.0-16.0); Imm Gran Abs Auto 0.01 X10*3/uL (0.00-0.03); Imm Gran Pct Auto 0.1 % (0.0-0.4); Lymphocytes Absolute Auto 1.2 X10*3/uL (1.2-4.9); Mean Corpuscular HGB Conc 33.3 g/dl (31.0-35.0); Mean Corpuscular Hemoglobin 29.6 pg (27.0-33.0); Mean Corpuscular Volume 88.9 fL (80.0-98.0); NRBC Abs Auto 0.000 X10*3/uL (0.0-0.012); NRBC Pct Auto 0.0 /100WBC (0.0-0.2); Platelet Count 173 X10*3/uL (160-400); Red Blood Count 4.05 X10*6/uL (4.20-5.50); White Blood Count 7.2 X10*3/uL (4.8-10.8)
--- NOTE | 2025-02-22 08:37 | ED.GENADULT ---
HPI - General Adult General Chief complaint: Headache Stated complaint: vomiting, headache Time Seen by Provider: 02/22/25 07:58 Source: patient and RN notes reviewed Mode of arrival: ambulatory Limitations: no limitations History of Present Illness ED Provider: Sana Bermudez PA-C HPI narrative: This is a 59-year-old female, with a past medical history migraine headaches, who presents emergency department with concerns of headache, nausea and vomiting. Patient states that over the last 6 days she has had a migraine. States that she has a history of migraines and symptoms feel similar however states that it is becoming much more severe. She states that she has had headache, photophobia, nausea and vomiting. She also endorses that she has been under a significant amount of stress. She has been taking ibuprofen as well as prescribed sumatriptan at home which has provided her without any relief. She denies any other complaints or concerns at this time. MD complaint: Headache Onset (ago): day(s) Location: head Relieving factors: none Exacerbating factors: none Associated symptoms: denies other symptoms Treatments prior to arrival: none Related Data Home Medications ?Medication ?Instructions ?Recorded ?Confirmed albuterol sulfate 90 mcg/actuation 90 mcg inhalation BID 10/25/21 02/22/25 aerosol inhaler (Ventolin HFA) sertraline 50 mg tablet 50 mg PO DAILY 07/11/22 02/22/25 baclofen 10 mg tablet 10 mg PO TID 08/06/23 02/22/25 buprenorphine 8 mg-naloxone 2 mg 20 mg sublingual DAILY 08/06/23 02/22/25 sublingual film quetiapine 50 mg tablet 50 mg PO BEDTIME 08/06/23 02/22/25 topiramate 50 mg tablet 50 mg PO BEDTIME 08/06/23 02/22/25 Previous Rx's ?Medication ?Instructions ?Recorded aivxfzmykr-kvsseqowvfnwz-tinrcwtu 1 cap PO Q6H PRN pain #14 caps 03/19/21 50 mg-300 mg-40 mg capsule (Fioricet) ibuprofen 600 mg tablet 600 mg PO Q6-8H PRN pain #10 tabs 10/04/22 erythromycin 5 mg/gram (0.5 %) eye 0.5 appl ophthalmic (eye) BID 5 08/08/23 ointment days #5 grams dwidoqa-xuufyqsalxllj-xttdguoi 250 2 tab PO Q6H PRN headache #30 tabs 11/29/23 mg-250 mg-65 mg tablet (Excedrin Migraine) diphenhydramine HCl 25 mg capsule 50 mg (2 x 25 mg) PO Q6H PRN 11/29/23 headache, nausea, vomiting #30 caps metoclopramide HCl 10 mg tablet 10 mg PO Q6H PRN nausea and 11/29/23 (Reglan) vomiting #14 tabs cyclobenzaprine 7.5 mg tablet 7.5 mg PO BID PRN muscle spasm #8 02/08/24 tabs lidocaine 5 % topical patch 1 patch topical DAILY #15 ea 02/08/24 prednisone 20 mg tablet 40 mg (2 x 20 mg) PO DAILY #10 tabs 02/08/24 Allergies Allergy/AdvReac Type Severity Reaction Status Date / Time menthol (From [employer] Cough Allergy Severe ANAPHYLAXIS Verified 02/22/25 07:35 Drops) trimethobenzamide (Tigan) Allergy Severe Anaphylaxis Verified 02/22/25 07:35 camphor (From [employer] VAPORUB) Allergy Unknown ANAPHYLAXIS Verified 02/22/25 07:35 eucalyptus (From VICKS Allergy Unknown ANAPHYLAXIS Verified 02/22/25 07:35 VAPORUB) petrolatum,white (From VICKS Allergy Unknown ANAPHYLAXIS Verified 02/22/25 07:35 VAPORUB) turpentine oil (From VICKS Allergy Unknown ANAPHYLAXIS Verified 02/22/25 07:35 VAPORUB) Review of Systems Review of Systems: Yes all other systems are reviewed and are negative Constitutional: Constitutional: Reports as per [facility] Past Medical History Attestation statement: The following information was validated with the patient. Medical History Routine medical exam Substance abuse Asthma Opioid dependence Migraine Social History Social History Household Members: None Housing: Apartment Do you presently have visiting nurse or other home services: No Alcohol intake: never Patient Tobacco Use Status: Tobacco use Unknown Tobacco use type: Cigarette Smoked in Last 30 Days: Yes e-Cigarette/Vaping Use: Never Used Second Hand Smoke Exposure: No Substance Use Type: Marijuana Advance Directives: No Advance Directives Information Provided: No Nutrition Risks: No Nutritional Risk service: No Current occupational status: disabled 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 Sexual orientation: Unable to collect Physical Exam ED Vital Signs: Vital Signs - 24 hr 02/22/25 16:00 02/22/25 19:31 02/22/25 22:16 Temperature 98.3 F 98.1 F Pulse Rate 60 59 57 Respiratory Rate 16 16 16 Blood Pressure 145/43 H 128/62 115/57 L Pulse Oximetry 97 96 95 Oxygen Delivery Method Room Air Room Air Room Air 02/23/25 02:24 02/23/25 05:58 Temperature 97.9 F 97.5 F Pulse Rate 51 50 Respiratory Rate 12 16 Blood Pressure 127/60 134/70 Pulse Oximetry 96 97 Oxygen Delivery Method Room Air Room Air BMI result Body Mass Index 20.6 Const General: cooperative, comfortable and no acute distress Orientation/consciousness: patient oriented x3 Limitations: no limitations HENMT Head: Yes normal to inspection, Yes normocephalic and Yes atraumatic Ears: hearing grossly normal bilaterally General nose exam: Normal external nose present Face and sinus: Yes normal facial exam Mouth: Normal oral and palatal mucosa present, oropharynx normal and moist mucous membranes Throat: Yes posterior oropharynx normal Eyes General: appearance normal, both eyes and all related structures Eyelids: Yes eyelids normal Conjunctivae: conjunctivae normal Sclerae: sclerae normal Pupils: Equal, round and reactive pupils present EOM: EOMs intact bilaterally Neck Neck: Yes normal visual inspection, Yes full ROM and Yes no lymphadenopathy Lymphatic: no lymphadenopathy noted Chest Chest palpation & inspection: normal inspection of the chest Resp Effort & Inspection: normal respiratory effort and able to speak in complete sentences Auscultation: clear to auscultation bilaterally, no crackles, no rales, no rhonchi and no wheezes Cardio Rate: regular rate Rhythm: regular rhythm Heart sounds: S1 normal heart sound present and S2 normal heart sound present GI Inspection: Yes normal to inspection Skin General skin exam: no rashes or lesions noted Trauma: no lacerations or abrasions Wounds: no wounds Neuro General: patient oriented x3 and moves all extremities Cranial nerves: Yes CN's II-XII intact bilaterally and Yes Equal, round and reactive pupils present Cognition (Neuro): normal cognition Gait exam (Neuro): Normal gait present Motor exam (neuro): 5/5 motor strength present throughout and Pronator motor function not present Extrem General: Yes normal to inspection Right upper extremity: normal to inspection Left upper extremity: normal to inspection Right lower extremity: normal to inspection Left lower extremity: normal to inspection NIH Stroke Scale Internal: Initial- Upon Arrival Level of Consciousness: Alert Level of Consciousness Questions: Answers both questions correctly Level of Consciousness Commands: Performs both tasks correctly Best Gaze: Normal Visual: No visual loss Facial Palsy: Normal Motor Arm (Right): No drift Motor Arm (Left): No drift Motor Leg (Right): No drift Motor Leg (Left): No drift Limb Ataxia: Absent Sensory: Normal Best Language: No aphasia Dysarthia: Normal Extinction and Inattention: No abnormality Score: 0 Course Reevaluation(s) Reevaluation #1: Time: 11:59 Date: 02/23/25 Provider: Umberto Lozano MD Patient in physician observation for psychiatric evaluation.? Patient had a full assessment this morning by care team who felt that the patient was psychotic and not safe for discharge. Patient was placed on a Section 12. The security flex utility officer went into change the patient over and the patient got upset, she states she was taking your shirt off when the security flex utility officer and came into the room. Patient states she is now extremely anxious and upset. Patient was ordered to get Ativan 2 mg orally. She also states she uses a lidocaine patch on her back for back pain and I ordered a lidocaine patch for her. Patient was placed on a Section 12 and will be moved to the ED Behavioral Health Unit. We will continue to monitor the patient until disposition can be obtained. Time: 15:45 Date: 02/23/25 Provider: Umberto Lozano MD Physician observation ended at 14:34 hours. Patient to be admitted as inpatient to psychiatry. Medications Administered Generic Name Dose Route Start Last Admin Trade Name Freq PRN Reason Stop Dose Admin Baclofen 10 mg 02/22/25 23:00 02/23/25 09:37 Baclofen 10 Mg Tablet PO 10 mg TID SAMEER Administration Buprenorphine/Naloxone 1 film 02/23/25 09:00 02/23/25 09:38 Buprenorphine/Naloxone 8/2 Mg Film SUBLINGUAL 1 film DAILY SAMEER Administration Diphenhydramine HCl 50 mg 02/22/25 22:52 02/22/25 23:26 Diphenhydramine Hcl 25 Mg Capsule PO 50 mg Q6H PRN Administration headache, nausea, vomiting Erythromycin 1 cm 02/22/25 23:00 02/23/25 09:37 Erythromycin Base 0.5% Oph Oin 1 Gm Tube EYE-BOTH 1 cm BID SAMEER Administration Metoclopramide HCl 10 mg 02/22/25 22:52 02/22/25 23:26 Metoclopramide Hcl 10 Mg Tablet PO 10 mg Q6H PRN Administration Nausea and Vomiting Quetiapine Fumarate 50 mg 02/22/25 23:00 02/22/25 23:19 Quetiapine Fumarate 50 Mg Tablet PO 50 mg BEDTIME SAMEER Administration Sertraline HCl 50 mg 02/23/25 09:00 02/23/25 09:37 Sertraline Hcl 50 Mg Tablet PO 50 mg DAILY SAMEER Administration Topiramate 50 mg 02/22/25 23:00 02/22/25 23:19 Topiramate 25 Mg Tablet PO 50 mg BEDTIME SAMEER Administration Discontinued Medications Generic Name Dose Route Start Last Admin Trade Name Freq PRN Reason Stop Dose Admin Acetaminophen/Butalbital/Caffeine 1 tab 02/22/25 22:56 02/22/25 23:01 Butalb/Acetamin/Caff 50/325/40 Tablet PO 02/22/25 22:57 1 tab ONCE ONE Administration Famotidine 20 mg 02/22/25 11:24 02/22/25 11:51 Famotidine 20 Mg Tablet PO 02/22/25 11:25 20 mg ONCE ONE Administration Sodium Chloride 1,000 mls @ 999 mls/hr 02/22/25 08:54 02/22/25 11:50 Ns IVCONT 02/22/25 09:54 Infused .Q1H1M ONE Infusion Acetaminophen 1,000 mg in 100 mls @ 400 mls/hr 02/22/25 08:54 02/22/25 11:49 Ofirmev IV 02/22/25 09:08 Infused ONCE ONE Infusion Ibuprofen 600 mg 02/22/25 17:47 02/22/25 18:19 Ibuprofen 600 Mg Tablet PO 02/22/25 17:48 600 mg ONCE ONE Administration Lidocaine HCl 15 ml 02/22/25 11:23 02/22/25 11:51 Lidocaine Hcl Viscous 2 % 15 Ml Solution MUCOUS MEM 02/22/25 11:24 15 ml ONCE ONE Administration Lidocaine HCl 1 appl 02/23/25 11:56 02/23/25 13:03 Lidocaine Hcl 4 % Topical 50 Ml Solution TOPICAL 02/23/25 11:57 1 appl ONCE ONE Administration Protocol Lorazepam 2 mg 02/23/25 11:56 02/23/25 13:01 Lorazepam 1 Mg Tablet PO 02/23/25 11:57 2 mg ONCE STA Administration Medical Decision Making Medical Decision Making [facility] Narrative: This is a 59-year-old female who presents emergency department for evaluation of headache for the last 6 days. On arrival, vital signs within normal limits, she is neurologically intact. Patient becomes tearful, explaining that she has had been under significant amount of stress, reporting that she has been locking herself in her apartment due to trauma that she has been undergoing over the last 3 years. She is neurologically intact, no focal deficits. Plan: Labs, IV fluids, IV Tylenol, patient also would like to be seen by the care team. 1125- patient reports that her headache is much better, reporting some epigastric pain. Will obtain EKG. Labs returned, she has no leukocytosis, stable H&H, chemistry reveal slight elevation in AST and ALT at 32 and 38, all other blood work nondiagnostic, viral swabs negative. CT head unremarkable. Patient has a allergy to menthol therefore unable to give Maalox, we will give viscous lidocaine and Pepcid see if this helps with her symptoms. Patient also requesting the speak to crisis regarding her depression anxiety. She denies SI or HI. Reporting she is homeless, had money loss, very tearful when discussing current living status. 1236 - Patient was seen by the care team. After meeting with this patient, care team believing that patient should be made a full assessment. Patient feeling much better, at this point, patient is medically cleared. Patient will be an inpatient psychiatric bed search, U tox also ordered. Differential Diagnosis Differential Diagnoses: The differential diagnosis associated with the presentation includes Headache, anxiety, gastritis, electrolyte derangement Admission/Observation Consideration of admission/observation: Escalation of care including admission/observation considered Lab Data [facility] Lab Attestation statement: I reviewed the patient's lab results. See MDM and course 02/22/25 08:20 02/22/25 08:20 Labs: Lab Results 02/22/25 02/22/25 Range/Units 08:20 13:29 WBC 7.2 (4.8-10.8) X10*3/uL RBC 4.05 L (4.20-5.50) X10*6/uL Hgb 12.0 (12.0-16.0) g/dl Hct 36.0 L (37.0-47.0) % MCV 88.9 (80.0-98.0) fL MCH 29.6 (27.0-33.0) pg MCHC 33.3 (31.0-35.0) g/dl RDW 12.6 (11.0-16.0) % Plt Count 173 (160-400) X10*3/uL MPV 10.0 (9.4-12.3) fL Immature Gran % (Auto) 0.1 (0.0-0.4) % Neut % (Auto) 75.8 H (45-73) % Lymph % (Auto) 16.9 L (20-40) % Rowan % (Auto) 6.2 (2-11) % Eos % (Auto) 0.7 (0-4) % Baso % (Auto) 0.3 (0-2) % Lymph # (Auto) 1.2 (1.2-4.9) X10*3/uL Rowan # (Auto) 0.4 (0.1-1.2) X10*3/uL Eos # (Auto) 0.1 (0.0-0.4) X10*3/uL Baso # (Auto) 0.0 (0.0-0.2) X10*3/uL Abs Immat Gran (auto) 0.01 (0.00-0.03) X10*3/uL Absolute Neuts (auto) 5.4 (2.0-8.3) x10*3/uL Absolute Nucleated RBC 0.000 (0.0-0.012) X10*3/uL Nucleated RBC % (auto) 0.0 (0.0-0.2) /100WBC Sodium 139 (135-145) mmol/L Potassium 4.3 D (3.3-5.1) mmol/L Chloride 104 (96-108) mmol/L Carbon Dioxide 27 (22-29) mmol/L Anion Gap 12 (12-20) BUN 17 H (9-16) mg/dL Creatinine 0.70 (0.5-1.4) mg/dL Estim Creat Clear Calc 73.3 Estimated GFR > 60 Random Glucose 108 (60-115) mg/dL Calcium 8.7 (8.4-10.2) mg/dL Magnesium 2.1 (1.6-2.6) mg/dL Total Bilirubin 0.8 (0.0-1.0) mg/dL Direct Bilirubin 0.2 (0.0-0.5) mg/dL AST 32 H (5-31) U/L ALT 38 H (0-31) U/L Alkaline Phosphatase 80 (39-117) U/L Troponin I High Sens < 2.7 (<3.5-17.0) ng/L Total Protein 7.1 (6.5-8.0) g/dL Albumin 4.4 (3.5-5.0) g/dL Urine Color Yellow Urine Appearance Clear Urine pH 7.0 (5.0-9.0) Ur Specific [place] 1.015 (1.005-1.025) Urine Protein Negative (Neg-Trace) mg/dL Urine Glucose (UA) Negative (Negative) mg/dL Urine Ketones Negative (Negative) mg/dL Urine Blood Trace H (Negative) Urine Nitrite Negative (Negative) Ur Leukocyte Esterase Trace H (Negative) Urine RBC 6-10 H (0-2) /HPF Urine WBC 0-5 (0-5) /HPF Ur Squamous Epith Cells 0-2 (0-2) /HPF Urine Bacteria None Seen (None Seen) Hyaline Casts 0-2 (0-2) /LPF Urine Opiates Screen Not Detected (Not Detect) Ur Buprenorphine Scrn Positive H (Not Detect) ng/mL Ur Oxycodone Screen Not Detected (Not Detect) ng/mL Urine Methadone Screen Not Detected (Not Detect) ng/mL Urine Fentanyl Screen Not Detected (Not Detect) Ur Barbiturates Screen Not Detected (Not Detect) Ur Phencyclidine Scrn Not Detected (Not Detect) Ur Amphetamines Screen Not Detected (Not Detect) U Benzodiazepines Scrn Not Detected (Not Detect) Urine Cocaine Screen POSITIVE H (Not Detect) U Marijuana (THC) Screen POSITIVE H (Not Detect) Influenza Type A (PCR) NEGATIVE (Negative) Influenza Type B (PCR) NEGATIVE (Negative) RSV RNA Qual (PCR) NEGATIVE (Negative) SARS-CoV-2 RNA (RT-PCR) NEGATIVE (Negative) Independent Interpretation I performed an independent interpretation of an: EKG Interpretation: EKG sinus bradycardic at a ventricular rate of 53 beats per minute, OH interval 166, QT QTC 460/431, no STEMI Radiology Impression Discussion of test interpretation with radiology: I have reviewed the radiologist's reading. Radiologist Impression: FINDINGS: There is no evidence of intracranial hemorrhage or extra-axial fluid collection. There is no mass effect, or edema. No CT evidence of acute territorial infarct. Ventricles, sulci, and cisterns are normal in size and configuration for patient age. No hydrocephalus. No midline shift. Negative hyperdense MCA sign. Negative insular ribbon sign. No significant white matter abnormalities. Globes and orbital contents image normally. No extracranial soft tissue abnormalities. The paranasal sinuses, mastoid air cells, and tympanic cavities are normally aerated. No suspicious bony abnormalities. There are no acute fractures evident. CT/CT head/brain wo IV con IMPRESSION: No acute intracranial abnormality. Electronically signed by: Bk Rogers MD 02/22/2025 10:36 AM EDT Dictated By: Bk Rogers MD Discharge Plan Discharge Clinical Impression: Migraine, Anxiety and depression, Psychosis Patient Disposition: Admitted As Inpatient Interventions: Admission Worksheet (ED) Last Done: 02/23/25 14:35 Discharge Date/Time: 02/23/25 14:35
[2025-02-22 08:54] LABS: Alanine Aminotransferase 38 U/L (0-31); Albumin Level 4.4 g/dL (3.5-5.0); Alkaline Phosphatase 80 U/L (39-117); Anion Gap 12 (12-20); Aspartate Amino Transferase 32 U/L (5-31); Blood Urea Nitrogen 17 mg/dL (9-16); Calcium 8.7 mg/dL (8.4-10.2); Carbon Dioxide 27 mmol/L (22-29); Chloride 104 mmol/L (96-108); Creatinine Clr Calc Pharmacy 73.3; Estimated Glomerular Filt Rate > 60; Magnesium 2.1 mg/dL (1.6-2.6); Potassium 4.3 mmol/L (3.3-5.1); Sodium 139 mmol/L (135-145); Total Protein 7.1 g/dL (6.5-8.0)
[2025-02-22 09:06] LABS: Resp Syncy Virus RNA Qual PCR NEGATIVE (Negative); SARS COV2 PCR INHOUSE NEGATIVE (Negative)
--- NOTE | 2025-02-22 11:23 | ECG_ITS ---
Test Reason : EPIGATRIC PAIN Blood Pressure : */* mmHG Vent. Rate : 53 BPM Atrial Rate : 53 BPM P-R Int : 166 ms QRS Dur : 82 ms QT Int : 460 ms P-R-T Axes : 62 58 49 degrees QTcB Int : 431 ms Sinus bradycardia Otherwise normal ECG When compared with ECG of 12-Feb-2025 00:31, No significant change was found Referred By: Sana Bermudez Electronically Signed By: Jeremy Brizuela
[2025-02-22] MEDS: Lidocaine HCl Viscous 2 % 15 ML SOLUTION MUCOUS MEM (11:51)
[2025-02-22 11:55] LABS: Troponin-I High Sensitivity < 2.7 ng/L (<3.5-17.0)
--- NOTE | 2025-02-22 13:41 | MHC.CARE ---
Pt will be an inpatient bedsearch.
[2025-02-22 13:47] LABS: Cannabinoid Screen Urine POSITIVE (Not Detect)
[2025-02-22 14:16] LABS: Appearance Urine Clear; Glucose Urine UA Negative (Negative); PH 7.0 (5.0-9.0); Specific Gravity - Urine 1.015 (1.005-1.025); UMIC TRIGGER UA YES
--- NOTE | 2025-02-22 20:01 | PC.NURSE ---
Addendum entered by Maryann Echeverria RN 02/23/25 06:23: pt woke up from sleep upset and agitated, stating someone stole her [employer] coffee, also upset because she hasnt showered in 2 days and also wants scheduled morning meds now . Attempted to redirect pt and educate pt on medication schedule while in the hospital. Gave pt toothbrush, toothpaste, mouthwash and washcloth with towel to freshen up this morning. Offered pt a cup of coffee, pt still upset stating she wants to leave. Addendum entered by Maryann Echeverria RN 02/22/25 20:33: pt changed over, calmd and cooperative. pts belongings secured and placed on shelf 4 in [employer]. belonging list reviewed and signed with pt and placed in pts chart. Original Note: assumed care for pt at 1900. pt noted to be resting quietly in bed and tearful. pt noted to not be changed over. pt expressed feeling anxious and not wanting her son to know about her depression. pt currently denying si/hi. pt explained she will need to be changed over and belongings secured. pt calm and cooperative at this time, waiting for son to bring her clothes and take home valuables she does not want to keep.
[2025-02-22] MEDS: Butalb/Acetamin/Caff 50/325/40 TABLET 1 TAB PO (23:01)
[2025-02-22] MEDS: Erythromycin Base 0.5% Oph Oin 1 GM TUBE 1 CM EYE-BOTH (23:19)
[2025-02-23 02:24] VITALS: BP 127/60; PULSE 51; RESP 12; TEMP 36.6; O2SAT 96
[2025-02-23 05:58] VITALS: BP 134/70; PULSE 50; RESP 16; TEMP 36.4; O2SAT 97
[2025-02-23] MEDS: Erythromycin Base 0.5% Oph Oin 1 GM TUBE 1 CM EYE-BOTH ×2 (09:37→20:14)
--- NOTE | 2025-02-23 11:01 | PC.NURSE ---
Pt's Plan of Care is inpatient bed search, patient stable to go to POD. RN Apryl called, security called to escort patient to POD. Patient noted to be in white t-shirt, EDT Violet to bedside to finish patient jacket changer before patient walked over.
--- NOTE | 2025-02-23 11:22 | PC.NURSE ---
Addendum entered by Brina Lobato RN 02/23/25 11:30: Pt successfully walked over to the pod w/ Brina DELA CRUZT. Patient cursing the entire time. Patient refusing to get changed over before walk over. staff made aware. workers' compensation hearings officer currently speaking with patient. Original Note: Pt demanding to leave, states she wants to go because biosecurity officer JR did not knock before entering her room, accusing security of being child molester . Patient informed she cannot leave, she is in the process of getting a bed on [facility]. Patient verbally aggressive, provider made aware.
--- NOTE | 2025-02-23 11:38 | PC.NURSE ---
Pt was brought over to the pod by Evelin Torrez and security. pt is visibly irritable on arrival to pod, yelling at staff and security. Pt was able to be de-escalated verbally by Security and was offered a conditional voluntary by [employer] Developer
--- NOTE | 2025-02-23 12:27 | PC.NURSE ---
pt calmer at this time, showering
[2025-02-23] MEDS: Lidocaine HCl 4 % Topical 50 ML SOLUTION 1 APPL TOPICAL (13:03)
[2025-02-23 15:33] VITALS: BP 121/68; PULSE 60; RESP 18; TEMP 36.8; O2SAT 96
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
[2025-02-23] MEDS: Butalb/Acetamin/Caff 50/325/40 TABLET 1 TAB PO (18:01)
[2025-02-23 20:00] VITALS: BP 115/56; PULSE 64; RESP 16; TEMP 36.7; O2SAT 94
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
[2025-02-24] MEDS: BUPRENORPHINE NALOXONE SUBLINGUAL (11:45)
[2025-02-24] MEDS: [UNRECOGNIZED DRUG - OTHER] SUBLINGUAL (11:45)
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
[2025-02-24 20:00] VITALS: BP 111/54; PULSE 59; RESP 18; TEMP 36.4; O2SAT 97
[2025-02-24 20:29] VITALS: BP 111/54
[2025-02-24] MEDS: Erythromycin Base 0.5% Oph Oin 1 GM TUBE 1 CM EYE-BOTH (20:30)
--- NOTE | 2025-02-25 05:13 | PC.NURSE ---
On 02/25 at 0300, pt complained that staff did not knock during routine checks. Pt stood on the threshold of her door and began shouting. Pt stated, ?Are you a pervert? Are you a child molestor?? Pt made a threat toward staff. Pt stated, ?If you come into my room again, I?ll throw something at you!?
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
[2025-02-25 07:00] VITALS: BMI 19.9
[2025-02-25 08:00] VITALS: BP 153/97; PULSE 62; RESP 18; TEMP 37; O2SAT 98
[2025-02-25] MEDS: Erythromycin Base 0.5% Oph Oin 1 GM TUBE 1 CM EYE-BOTH ×2 (08:48→20:52)
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
[2025-02-25 09:26] LABS: Hemoglobin A1C 149.8256 umol/L; Total Hemoglobin (HGBA1C) 3911.4732 umol/L
[2025-02-25 09:40] LABS: Alanine Aminotransferase 37 U/L (0-31); Albumin Level 4.8 g/dL (3.5-5.0); Alkaline Phosphatase 91 U/L (39-117); Anion Gap 12 (12-20); Aspartate Amino Transferase 22 U/L (5-31); Blood Urea Nitrogen 20 mg/dL (9-16); Calcium 9.5 mg/dL (8.4-10.2); Carbon Dioxide 25 mmol/L (22-29); Chloride 106 mmol/L (96-108); Cholesterol 209 mg/dL (<200); Creatinine Clr Calc Pharmacy 54.7; Estimated Glomerular Filt Rate > 60; HDL Cholesterol 81 mg/dL (>40); Potassium 4.0 mmol/L (3.3-5.1); Sodium 139 mmol/L (135-145); Total Protein 7.9 g/dL (6.5-8.0); Triglycerides 243 mg/dL (<150)
[2025-02-25 20:00] VITALS: BP 90/67; PULSE 66; TEMP 36.4; O2SAT 99
[2025-02-25] MEDS: Butalb/Acetamin/Caff 50/325/40 TABLET 1 TAB PO (20:51)
[2025-02-25 20:52] VITALS: BP 90/69
[2025-02-25] MEDS: BUPRENORPHINE NALOXONE SUBLINGUAL (21:38)
[2025-02-25] MEDS: [UNRECOGNIZED DRUG - OTHER] SUBLINGUAL (21:38)
[2025-02-26 00:14] VITALS: BP 130/71; PULSE 82; RESP 16; TEMP 36.5; O2SAT 97
--- NOTE | 2025-02-26 00:38 | PC.NURSE ---
At approximately 0010, this patient complained of stabbing chest pain, 10/10; she reported she had been experiencing this all day but had not informed anyone. This marketing writer obtained vital signs which were within normal limits. Provider James Beltran notified; Dr Beltran advised PRN tylenol, which had just been administered for migraine. Patient is currently sitting in the common area and exhibiting no distress.
--- NOTE | 2025-02-26 01:24 | PC.NURSE ---
Patient states that her chest pain is gone.
[2025-02-26 08:00] VITALS: BP 114/57; PULSE 59; RESP 18; TEMP 36.8; O2SAT 98
[2025-02-26] MEDS: Erythromycin Base 0.5% Oph Oin 1 GM TUBE 1 CM EYE-BOTH ×2 (08:59→20:18)
[2025-02-26] MEDS: Buprenorphine/Naloxone 2/0.5mg FILM 4 FILM SUBLINGUAL (09:29)
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
[2025-02-26 19:45] VITALS: BP 144/82; PULSE 83; TEMP 36.5; O2SAT 98
[2025-02-26] MEDS: Butalb/Acetamin/Caff 50/325/40 TABLET 1 TAB PO (20:19)
[2025-02-27] MEDS: Butalb/Acetamin/Caff 50/325/40 TABLET 1 TAB PO ×2 (07:40→20:40)
[2025-02-27 07:56] VITALS: BP 110/73; PULSE 73; RESP 16; TEMP 36.8; O2SAT 98
[2025-02-27] MEDS: Buprenorphine/Naloxone 2/0.5mg FILM 4 FILM SUBLINGUAL (08:33)
[2025-02-27] MEDS: Erythromycin Base 0.5% Oph Oin 1 GM TUBE 1 CM EYE-BOTH ×2 (08:33→20:44)
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
[2025-02-27 19:32] VITALS: BP 125/66; PULSE 73; TEMP 36.9; O2SAT 95
--- NOTE | 2025-02-28 | ECG_ITS ---
Test Reason : chest pain Blood Pressure : */* mmHG Vent. Rate : 60 BPM Atrial Rate : 60 BPM P-R Int : 158 ms QRS Dur : 88 ms QT Int : 448 ms P-R-T Axes : 75 55 50 degrees QTcB Int : 448 ms Normal sinus rhythm Normal ECG When compared with ECG of 22-Feb-2025 12:19, No significant change was found Referred By: Ambrocio Loja Electronically Signed By: CHER SCANLON
[2025-02-28 08:00] VITALS: BP 115/56; PULSE 63; RESP 16; TEMP 36.9; O2SAT 97
[2025-02-28] MEDS: Buprenorphine/Naloxone 2/0.5mg FILM 4 FILM SUBLINGUAL (08:36)
[2025-02-28] MEDS: Erythromycin Base 0.5% Oph Oin 1 GM TUBE 1 CM EYE-BOTH ×2 (08:36→23:05)
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
[2025-02-28 13:19] VITALS: BP 117/67
[2025-02-28 19:50] VITALS: BP 97/59; PULSE 69; RESP 15; TEMP 36.8; O2SAT 98
[2025-02-28 23:04] VITALS: BP 130/68
--- NOTE | 2025-03-01 03:14 | PC.NURSE ---
At approximately 0245, this patient became loud and verbally abusive, accusing staff of coming in her room [which is necessary when doing checks.] She became highly agitated and rushed at the [facility] [place] was accusing of entering her room. In spite of attempts to calm her, security was called for a walkthrough as Elida was escalating. She was able to regain behavioral control, and accepted PRN medication to manage her agitation. This seems to be a problematic time of the night/morning for this patient.
[2025-03-01 06:05] VITALS: BP 118/57; PULSE 72; RESP 15; TEMP 36.8; O2SAT 97
--- NOTE | 2025-03-01 06:10 | PC.NURSE ---
At 6:05 patient complained of chest pain, but refused to talk to this RN. VS were checked by [facility] and they were WNL. She had similar complaints yesterday and her EKG was Normal Sinus Rhythm. Pt seeking lots of attention from staff on this shift and appears to be somatic. She does not appear to be in physical distress. Will pass her complaints to day shift.
[2025-03-01 08:00] VITALS: RESP 16
[2025-03-01 09:55] VITALS: BP 128/74
[2025-03-01] MEDS: Erythromycin Base 0.5% Oph Oin 1 GM TUBE 1 CM EYE-BOTH ×2 (09:55→20:31)
[2025-03-01] MEDS: Buprenorphine/Naloxone 2/0.5mg FILM 4 FILM SUBLINGUAL (09:55)
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
[2025-03-01 13:11] VITALS: BP 111/59
[2025-03-01] MEDS: NeoMYCIN/Polymyxin/HC Otic Sol BOTTLE 4 DROP EAR-LEFT ×2 (13:56→20:40)
[2025-03-01] MEDS: Nystatin Oral Susp 500,000 UNIT/5 ML ORAL.SUSP 500000 UNIT PO ×3 (13:58→20:30)
[2025-03-01 19:42] VITALS: BP 111/60; PULSE 60; TEMP 2.7; TEMP 36.8; O2SAT 98
[2025-03-01] MEDS: Butalb/Acetamin/Caff 50/325/40 TABLET 1 TAB PO (23:16)
[2025-03-02] MEDS: Butalb/Acetamin/Caff 50/325/40 TABLET 1 TAB PO (06:05)
[2025-03-02 08:00] VITALS: BP 99/58; PULSE 75; RESP 18; TEMP 36.4; O2SAT 95
[2025-03-02] MEDS: NeoMYCIN/Polymyxin/HC Otic Sol BOTTLE 4 DROP EAR-LEFT ×3 (08:02→23:26)
[2025-03-02] MEDS: Nystatin Oral Susp 500,000 UNIT/5 ML ORAL.SUSP 500000 UNIT PO ×4 (08:02→23:27)
[2025-03-02] MEDS: Erythromycin Base 0.5% Oph Oin 1 GM TUBE 1 CM EYE-BOTH ×2 (08:12→23:26)
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
[2025-03-02] MEDS: Buprenorphine/Naloxone 2/0.5mg FILM 4 FILM SUBLINGUAL (09:06)
[2025-03-02 12:09] VITALS: BP 110/59
--- NOTE | 2025-03-02 16:08 | MHC.RECOVRN ---
Met with pt in room 514 to discuss stopping suboxone per consult. On approach pt is pleasant, calm, cooperative and eager to participate in discussion. Pt reports she no longer wants to take Suboxone, ?because I?ve been on it too long? and expresses a desire to taper off. Pt reports she spoke to her doctor in the clinic at which she receives her suboxone ?and he doesn't want to take me off or he won't get paid?. Pt is currently prescribed 8mg BID. Pt MAR shows pt has been inconsistent during her current admission in taking her suboxone as scheduled. Pt reports at home she takes 1 8mg strip and will sometimes cut it in half, Pt will take half in the morning and half at night or sometimes all at once, but does reiterate that she never takes the full dose. Pt denies any withdrawal symptoms other than mild diarrhea related to the decrease. Discussed with pt the potential to have her suboxone changed to 8mg scheduled with a prn 8mg dose if needed for the evening. Pt agreeable to change. Pt also educated that she has the ability to change clinics if she prefers and information about [facility] was provided. Pt expressed appreciation of information provided and denies further concerns at this time. TW available for further questions or? concerns?
[2025-03-02 20:00] VITALS: BP 124/75; PULSE 56; O2SAT 100
[2025-03-02 23:24] VITALS: BP 106/55
[2025-03-02] MEDS: Clotrimazole 1 % Cream 15 GM TUBE 1 APPL TOPICAL (23:26)
[2025-03-03 08:13] VITALS: BP 123/63; PULSE 76; RESP 16; TEMP 36.9; O2SAT 96
[2025-03-03] MEDS: Nystatin Oral Susp 500,000 UNIT/5 ML ORAL.SUSP 500000 UNIT PO ×4 (08:47→21:44)
[2025-03-03] MEDS: Erythromycin Base 0.5% Oph Oin 1 GM TUBE 1 CM EYE-BOTH ×2 (08:49→21:45)
[2025-03-03] MEDS: NeoMYCIN/Polymyxin/HC Otic Sol BOTTLE 4 DROP EAR-LEFT ×3 (08:50→21:46)
[2025-03-03] MEDS: Clotrimazole 1 % Cream 15 GM TUBE 1 APPL TOPICAL ×2 (08:54→21:46)
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
[2025-03-03 14:00] VITALS: BP 117/64; PULSE 70; RESP 16; TEMP 36.9
[2025-03-03 21:45] VITALS: BP 107/54; PULSE 64; RESP 16; TEMP 36.2; O2SAT 97
[2025-03-04 07:00] VITALS: BMI 21.4
[2025-03-04 08:00] VITALS: BP 114/64; PULSE 69; RESP 18; TEMP 36.3; O2SAT 97
[2025-03-04] MEDS: Butalb/Acetamin/Caff 50/325/40 TABLET 1 TAB PO (08:01)
[2025-03-04] MEDS: Clotrimazole 1 % Cream 15 GM TUBE 1 APPL TOPICAL ×2 (08:59→20:31)
[2025-03-04] MEDS: NeoMYCIN/Polymyxin/HC Otic Sol BOTTLE 4 DROP EAR-LEFT ×3 (08:59→20:31)
[2025-03-04] MEDS: Nystatin Oral Susp 500,000 UNIT/5 ML ORAL.SUSP 500000 UNIT PO ×3 (09:00→20:31)
[2025-03-04 09:01] VITALS: BP 114/64
[2025-03-04] MEDS: Erythromycin Base 0.5% Oph Oin 1 GM TUBE 1 CM EYE-BOTH ×2 (09:05→20:35)
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
[2025-03-04 15:26] VITALS: BP 125/58
[2025-03-04 20:00] VITALS: BP 111/63; PULSE 72; RESP 18; TEMP 36.9; O2SAT 97
[2025-03-05] MEDS: Butalb/Acetamin/Caff 50/325/40 TABLET 1 TAB PO (03:00)
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
[2025-03-05 08:00] VITALS: BP 120/68; PULSE 65; TEMP 36.4; O2SAT 95
[2025-03-05 09:13] VITALS: BP 120/68
[2025-03-05] MEDS: Nystatin Oral Susp 500,000 UNIT/5 ML ORAL.SUSP 500000 UNIT PO ×4 (09:13→21:56)
[2025-03-05] MEDS: Clotrimazole 1 % Cream 15 GM TUBE 1 APPL TOPICAL ×2 (09:14→21:56)
[2025-03-05] MEDS: NeoMYCIN/Polymyxin/HC Otic Sol BOTTLE 4 DROP EAR-LEFT ×3 (09:14→21:56)
[2025-03-05] MEDS: Erythromycin Base 0.5% Oph Oin 1 GM TUBE 1 CM EYE-BOTH ×2 (09:14→21:56)
[2025-03-05 13:05] VITALS: BP 122/58
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
[2025-03-05 20:00] VITALS: BP 125/68; PULSE 64; TEMP 36.8; O2SAT 98
[2025-03-05 21:56] VITALS: BP 125/68
[2025-03-06] MEDS: Clotrimazole 1 % Cream 15 GM TUBE 1 APPL TOPICAL ×2 (08:53→20:56)
[2025-03-06] MEDS: Erythromycin Base 0.5% Oph Oin 1 GM TUBE 1 CM EYE-BOTH ×2 (08:53→20:56)
[2025-03-06 09:00] VITALS: BP 153/73; PULSE 79; RESP 16; TEMP 36.6; O2SAT 98
[2025-03-06] MEDS: NeoMYCIN/Polymyxin/HC Otic Sol BOTTLE 4 DROP EAR-LEFT (09:06)
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
[2025-03-06] MEDS: Nystatin Oral Susp 500,000 UNIT/5 ML ORAL.SUSP 500000 UNIT PO ×4 (10:03→20:56)
[2025-03-06 12:25] VITALS: BP 99/58
[2025-03-06] MEDS: Butalb/Acetamin/Caff 50/325/40 TABLET 1 TAB PO ×2 (12:25→21:14)
[2025-03-06 19:32] VITALS: BP 126/58; PULSE 69; TEMP 36.6; O2SAT 98
[2025-03-06 20:57] VITALS: BP 126/58
[2025-03-07 08:00] VITALS: BP 127/65; PULSE 74; RESP 18; TEMP 36.4; O2SAT 99
[2025-03-07] MEDS: Clotrimazole 1 % Cream 15 GM TUBE 1 APPL TOPICAL (08:15)
[2025-03-07] MEDS: Nystatin Oral Susp 500,000 UNIT/5 ML ORAL.SUSP 500000 UNIT PO ×4 (09:39→20:35)
[2025-03-07 13:42] VITALS: BP 127/62
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
[2025-03-07 20:00] VITALS: BP 141/96; PULSE 81; RESP 16; TEMP 36.9; O2SAT 97
[2025-03-07 20:36] VITALS: BP 141/96
[2025-03-08 08:29] VITALS: BP 138/67; PULSE 74; RESP 16; TEMP 36.7; O2SAT 97
[2025-03-08] MEDS: Clotrimazole 1 % Cream 15 GM TUBE 1 APPL TOPICAL (08:36)
[2025-03-08] MEDS: Nystatin Oral Susp 500,000 UNIT/5 ML ORAL.SUSP 500000 UNIT PO ×4 (09:26→22:04)
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
[2025-03-08 12:58] VITALS: BP 108/62
[2025-03-08 20:00] VITALS: BP 119/63; PULSE 67; RESP 16; TEMP 37.1; O2SAT 96
[2025-03-08 22:05] VITALS: BP 105/57
[2025-03-09 07:41] VITALS: BP 101/55; PULSE 74; TEMP 36.9; O2SAT 97
[2025-03-09] MEDS: Nystatin Oral Susp 500,000 UNIT/5 ML ORAL.SUSP 500000 UNIT PO ×4 (07:55→20:15)
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
[2025-03-09 12:54] VITALS: BP 116/64
[2025-03-09] MEDS: Butalb/Acetamin/Caff 50/325/40 TABLET 1 TAB PO ×2 (13:02→21:37)
[2025-03-09] MEDS: Clotrimazole 1 % Cream 15 GM TUBE 1 APPL TOPICAL ×2 (13:06→20:15)
[2025-03-09 20:00] VITALS: BP 121/58; PULSE 78; TEMP 36.7; O2SAT 98
[2025-03-09 20:17] VITALS: BP 121/58
[2025-03-10 08:51] VITALS: BP 97/46; PULSE 82; TEMP 36.4; O2SAT 95
[2025-03-10] MEDS: Nystatin Oral Susp 500,000 UNIT/5 ML ORAL.SUSP 500000 UNIT PO ×4 (09:32→20:40)
[2025-03-10 09:33] VITALS: BP 106/61
[2025-03-10] MEDS: Butalb/Acetamin/Caff 50/325/40 TABLET 1 TAB PO ×2 (09:33→20:41)
[2025-03-10] MEDS: Clotrimazole 1 % Cream 15 GM TUBE 1 APPL TOPICAL ×2 (10:17→20:59)
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
[2025-03-10 13:59] VITALS: BP 102/54
[2025-03-10 19:45] VITALS: BP 122/59; PULSE 69; O2SAT 97
[2025-03-11 08:30] VITALS: BP 132/64; PULSE 69; RESP 16; TEMP 36.9; O2SAT 97
[2025-03-11] MEDS: Clotrimazole 1 % Cream 15 GM TUBE 1 APPL TOPICAL ×2 (08:32→22:15)
[2025-03-11] MEDS: Butalb/Acetamin/Caff 50/325/40 TABLET 1 TAB PO (08:52)
[2025-03-11] MEDS: Nystatin Oral Susp 500,000 UNIT/5 ML ORAL.SUSP 500000 UNIT PO ×4 (09:17→22:13)
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
[2025-03-11 11:05] VITALS: BMI 21.4
[2025-03-11 14:32] VITALS: BP 126/60
[2025-03-11 20:00] VITALS: BP 141/71; PULSE 68; RESP 16; TEMP 36.4; O2SAT 96
[2025-03-11 22:13] VITALS: BP 106/56
[2025-03-12 08:00] VITALS: BP 130/79; PULSE 74; RESP 18; TEMP 36.5; O2SAT 97
[2025-03-12] MEDS: Clotrimazole 1 % Cream 15 GM TUBE 1 APPL TOPICAL ×2 (08:11→20:57)
[2025-03-12] MEDS: Butalb/Acetamin/Caff 50/325/40 TABLET 1 TAB PO ×2 (09:53→20:58)
[2025-03-12] MEDS: Nystatin Oral Susp 500,000 UNIT/5 ML ORAL.SUSP 500000 UNIT PO ×4 (09:54→20:57)
[2025-03-12 13:35] VITALS: BP 116/58
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
[2025-03-12 19:44] VITALS: BP 120/61; PULSE 76; TEMP 36.6; O2SAT 97
[2025-03-12 20:56] VITALS: BP 120/61
[2025-03-12] MEDS: Artificial Tears 15 ML DROPS 2 DROP EYE-BOTH (21:15)
[2025-03-13] MEDS: Butalb/Acetamin/Caff 50/325/40 TABLET 1 TAB PO ×3 (05:48→20:35)
[2025-03-13] MEDS: Nystatin Oral Susp 500,000 UNIT/5 ML ORAL.SUSP 500000 UNIT PO ×4 (08:04→20:43)
[2025-03-13 08:10] VITALS: BP 110/58; PULSE 70; TEMP 36.6; O2SAT 96
[2025-03-13] MEDS: Clotrimazole 1 % Cream 15 GM TUBE 1 APPL TOPICAL ×2 (09:00→20:39)
[2025-03-13 12:32] VITALS: BP 110/59
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
[2025-03-13 19:33] VITALS: BP 118/72; PULSE 72; TEMP 36.8; O2SAT 98
[2025-03-13 20:36] VITALS: BP 118/72
[2025-03-13] MEDS: Artificial Tears 15 ML DROPS 2 DROP EYE-BOTH (20:38)
[2025-03-14 08:25] VITALS: BP 114/58; PULSE 75; TEMP 36.6; O2SAT 97
[2025-03-14] MEDS: Nystatin Oral Susp 500,000 UNIT/5 ML ORAL.SUSP 500000 UNIT PO ×4 (08:30→22:33)
[2025-03-14] MEDS: Clotrimazole 1 % Cream 15 GM TUBE 1 APPL TOPICAL ×2 (08:34→22:38)
[2025-03-14] MEDS: Artificial Tears 15 ML DROPS 2 DROP EYE-BOTH (10:23)
[2025-03-14 12:16] VITALS: BP 108/62
[2025-03-14 20:00] VITALS: BP 115/60; PULSE 71; RESP 18; TEMP 36.5; O2SAT 98
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
[2025-03-14] MEDS: Butalb/Acetamin/Caff 50/325/40 TABLET 1 TAB PO (23:38)
[2025-03-15 08:00] VITALS: BP 137/68; PULSE 84; RESP 18; TEMP 36.2; O2SAT 97
[2025-03-15] MEDS: Clotrimazole 1 % Cream 15 GM TUBE 1 APPL TOPICAL ×2 (08:46→22:19)
[2025-03-15] MEDS: Nystatin Oral Susp 500,000 UNIT/5 ML ORAL.SUSP 500000 UNIT PO (08:56)
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
[2025-03-15] MEDS: Albuterol Sulfate 90 MCG 8 GM INHALER 2 PUFF INHALE (13:45)
[2025-03-15 13:48] VITALS: BP 121/72
[2025-03-15] MEDS: Butalb/Acetamin/Caff 50/325/40 TABLET 1 TAB PO (15:59)
[2025-03-15 21:58] VITALS: BP 109/61
[2025-03-15] MEDS: Artificial Tears 15 ML DROPS 2 DROP EYE-BOTH (22:19)
[2025-03-16] MEDS: Butalb/Acetamin/Caff 50/325/40 TABLET 1 TAB PO (03:04)
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
[2025-03-16 08:04] VITALS: BP 120/66; PULSE 80; TEMP 36.6; O2SAT 98
[2025-03-16] MEDS: Clotrimazole 1 % Cream 15 GM TUBE 1 APPL TOPICAL ×2 (08:13→22:21)
[2025-03-16 12:14] VITALS: BP 112/65
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
[2025-03-16 20:00] VITALS: BP 133/86; PULSE 78; TEMP 37.3; O2SAT 94
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
--- NOTE | 2025-03-17 01:29 | PC.NURSE ---
Patient requested medications that she had previously refused this shift; this senior underwriter administered same.
[2025-03-17 08:00] VITALS: BP 138/73; PULSE 86; TEMP 36; O2SAT 98
[2025-03-17] MEDS: Artificial Tears 15 ML DROPS 2 DROP EYE-BOTH (09:19)
[2025-03-17] MEDS: Clotrimazole 1 % Cream 15 GM TUBE 1 APPL TOPICAL (09:23)
[2025-03-17 12:14] VITALS: BP 122/60
--- NOTE | 2025-03-17 12:18 | PM.PSYDC ---
DS: Providers Provider Date of admission: 02/23/25 14:33 Primary care physician: [facility] Consults: 02/24/25 17:27 Addiction Medicine Provider Routine Consulting Provider: Addiction Covering Reason for consultation: JACE use, on MAT- Suboxone and Topiramate 02/28/25 21:21 Consult to Hospitalist Routine Comment: Consulting Provider: [facility] Hospitalists Reason For Exam: left ear pain 03/02/25 09:14 Addiction Medicine Provider Routine Consulting Provider: Addiction Covering Reason for consultation: pt taking herself off suboxone. education needed Has provider been notified: No 03/02/25 17:06 Consult to Hospitalist Routine Comment: Consulting Provider: [facility] Hospitalists Reason For Exam: Pt reports left sided abdominal pain 05/28 DS: Diagnosis Discharge Diagnosis (1) Psychosis: Status: Acute (2) Anxiety and depression: Status: Acute (3) Migraine: Status: Acute DS: Medications Discharge Medications Home Medications: Previous Rx's ?Medication ?Instructions ?Recorded ghlzlmx-ykszpqlvuimbi-bwjlcwji 250 2 tab PO Q6H PRN headache #30 tabs 11/29/23 mg-250 mg-65 mg tablet (Excedrin Migraine) acetaminophen 325 mg tablet 650 mg (2 x 325 mg) PO Q6H PRN 03/17/25 Headache/Pain, Scale 1-10 #10 tabs albuterol sulfate 90 mcg/actuation 90 mcg inhalation BID #1 inhaler 03/17/25 aerosol inhaler (Ventolin HFA) baclofen 10 mg tablet 10 mg PO TID #21 tabs 03/17/25 buprenorphine 8 mg-naloxone 2 mg 1 film sublingual BEDTIME PRN sx 03/17/25 sublingual film (Suboxone) of opiate withdrawal #2 ea buprenorphine 8 mg-naloxone 2 mg 1 film sublingual DAILY #2 ea 03/17/25 sublingual film (Suboxone) clonidine HCl 0.1 mg tablet 0.1 mg PO BID@0900,1300 #14 tabs 03/17/25 cyclobenzaprine 7.5 mg tablet 7.5 mg PO BID PRN muscle spasm #8 03/17/25 tabs diphenhydramine HCl 25 mg capsule 50 mg (2 x 25 mg) PO Q6H PRN 03/17/25 headache, nausea, vomiting #10 caps ibuprofen 600 mg tablet 600 mg PO Q6-8H PRN pain #10 tabs 03/17/25 lamotrigine 25 mg tablet 25 mg PO BEDTIME #7 tabs 03/17/25 omeprazole 20 mg capsule,delayed 20 mg PO BID@0630,1630 #14 caps 03/17/25 release prazosin 1 mg capsule 2 mg PO BEDTIME #7 caps 03/17/25 quetiapine 50 mg tablet 50 mg PO BEDTIME #7 tabs 03/17/25 risperidone 1 mg tablet 1 mg PO BID #14 tabs 03/17/25 sertraline 50 mg tablet 75 mg (1.5 x 50 mg) PO DAILY #11 03/17/25 tabs topiramate 50 mg tablet 50 mg PO BEDTIME #7 tabs 03/17/25 trazodone 50 mg tablet 50 mg PO BEDTIME MRX1 PRN Insomnia 03/17/25 #14 tabs Data Data Completed and Pending Completed studies during hospitalization [Text1]: 03/03/25 14:15 Urine clean catch Urine Culture - Final No growth. Imaging Diagnostic Imaging Impressions Head CT 02/22/25 08:11 IMPRESSION: No acute intracranial abnormality. Electronically signed by: Bk Rogers MD 02/22/2025 10:36 AM EDT RP Cervical Spine X-Ray 03/05/25 11:50 IMPRESSION: No acute abnormality Electronically signed by: Sukumar Lomeli MD 03/05/2025 12:41 PM EDT RP Chest X-Ray 03/05/25 11:50 IMPRESSION: No acute cardiopulmonary abnormality. Electronically signed by: Marlon North MD 03/05/2025 12:28 PM EDT RP Clavicle X-Ray 03/05/25 11:50 IMPRESSION: No evidence of fracture of the bilateral clavicles. Electronically signed by: Marlon North MD 03/05/2025 12:33 PM EDT RP Hand X-Ray 03/05/25 11:50 IMPRESSION: No evidence of acute fracture of the right hand. Electronically signed by: Marlon North MD 03/05/2025 12:26 PM EDT RP DS: Summary Time Spent with Patient Time attestation: Total time managing care of this patient today ____ minutes. Discharge Plan Discharge Anticipated Discharge Date/Time: 03/17/25 13:00 Patient Disposition: [facility] Discharge Diagnosis: PTSD Recurrent Major Depression with Psychotic Features Migraine Referrals: [facility] [Other] - 1 Week Referral Note: Walk in hours for psychiatry and therapy intake, Saturday-Saturday 10am-12pm [facility] [place] [Other] - 1 Day [facility] [place] [Other] - 1 Day [facility] [Other] - 1 Day [facility] [Other] - 1 Week Referral Note: Please follow up with [facility] on the referral that was placed on your behalf. If you are interested in taking a tour please call the provided number [facility] [Other] - 1 Week Referral Note: Referrals to [facility] can take up to 90 days for review, please call to follow up with [facility] to check on the status of your referral that was placed on your behalf [facility] [Primary Care Provider, Primary Care] - 1 Week Discharge Medications: New clonidine HCl 0.1 mg Tablet 0.1 mg PO BID@0900,1300 Qty: 14 4RF Protocol: Hold for SBP< HOLD for SBP < : 90 acetaminophen 325 mg Tablet 650 mg PO Q6H PRN (Reason: Headache/Pain, Scale 1-10) Qty: 10 0RF prazosin 1 mg Capsule 2 mg PO BEDTIME Qty: 7 4RF Protocol: Hold for SBP< HOLD for SBP < : 90 lamotrigine 25 mg Tablet 25 mg PO BEDTIME Qty: 7 4RF buprenorphine-naloxone [Suboxone] 8-2 mg Film 1 film sublingual BEDTIME PRN (Reason: sx of opiate withdrawal) Qty: 2 0RF buprenorphine-naloxone [Suboxone] 8-2 mg Film 1 film sublingual DAILY Qty: 2 0RF trazodone 50 mg Tablet 50 mg PO BEDTIME MRX1 PRN (Reason: Insomnia) Qty: 14 4RF omeprazole 20 mg Capsule,Delayed Release(Dr/Ec) 20 mg PO BID@0630,1630 Qty: 14 4RF risperidone 1 mg Tablet 1 mg PO BID Qty: 14 0RF sertraline 50 mg tablet 75 mg PO DAILY Qty: 11 4RF Continued baclofen 10 mg tablet 10 mg PO TID Qty: 21 4RF diphenhydramine HCl 25 mg capsule 50 mg PO Q6H PRN (Reason: headache, nausea, vomiting) Qty: 10 0RF ibuprofen 600 mg tablet 600 mg PO Q6-8H PRN (Reason: pain) Qty: 10 0RF albuterol sulfate [Ventolin HFA] 90 mcg/actuation HFA aerosol inhaler 90 mcg inhalation BID Qty: 1 0RF topiramate 50 mg tablet 50 mg PO BEDTIME Qty: 7 4RF quetiapine 50 mg tablet 50 mg PO BEDTIME Qty: 7 4RF cyclobenzaprine 7.5 mg tablet 7.5 mg PO BID PRN (Reason: muscle spasm) Qty: 8 0RF Excedrin Migraine 250-250-65 mg tablet 2 tab PO Q6H PRN (Reason: headache) Qty: 30 0RF Discontinued kgvotoulyj-bxofiaauqakga-uvpf [Fioricet] 50-300-40 mg capsule 1 cap PO Q6H PRN (Reason: pain) Qty: 14 0RF buprenorphine-naloxone 8-2 mg film 20 mg sublingual DAILY erythromycin 5 mg/gram (0.5 %) ointment 0.5 appl ophthalmic (eye) BID 5 Days Qty: 5 0RF prednisone 20 mg tablet 40 mg PO DAILY Qty: 10 0RF lidocaine 5 % adhesive patch,medicated 1 patch topical DAILY Qty: 15 0RF Rx Instructions: leave on most painful area for up to 12 hrs Pt Own Suboxone 8-2 Mg film 1 film PO BID metoclopramide HCl [Reglan] 10 mg tablet 10 mg PO Q6H PRN (Reason: nausea and vomiting) Qty: 14 0RF sertraline 50 mg tablet 50 mg PO DAILY Discharge Orders: Discharge Order (Routine); Ordered 03/17/25 Ordered By: Ju Holguin Diet: Advance to usual diet Activity on Discharge: As tolerated Stand Alone Forms: Patient Portal Discharge page, Community Support Print Language: Vincentian Care Plan Goals: Mood and Behavioral Stabilization Abstinence from Substances Health Concerns: Mood and Behavioral Stabilization Abstinence from Substances Plan of Treatment: Elida has declined referrals to shelters and programs for housing assistance She has asked that all releases of information for her children be retracted. She has expressed anger that her children have not contacted her during her admission to the hospital. She has been given a list of resources for her use for housing and programs. Assessment: Administrative discharge.
== END 2025-03-17 13:45 | disposition home or self-care (01) | DRG 885 ==
LOC: HO.ED 02-23 11:29 → HO.PM5 02-23 14:34
PROVIDERS: Physician Assistant Medical; Admitting Provider Psychiatry & Neurology Psychiatry; Emergency Provider Emergency Medicine; PCP Dentist General Practice; Visit Provider Clinical Nurse Specialist Psychiatric/Mental Health, Adult
DX: F33.3 Major depressive disorder, recurrent, severe with psychotic symptoms (principal); F11.20 Opioid dependence, uncomplicated; B37.81 Candidal esophagitis; R45.851 Suicidal ideations; F41.9 Anxiety disorder, unspecified; F17.210 Nicotine dependence, cigarettes, uncomplicated; Z71.6 Tobacco abuse counseling; R10.9 Unspecified abdominal pain; G89.29 Other chronic pain; K59.00 Constipation, unspecified; G43.909 Migraine, unspecified, not intractable, without status migrainosus; H60.92 Unspecified otitis externa, left ear; F43.10 Post-traumatic stress disorder, unspecified; Z20.822 Contact with and (suspected) exposure to COVID-19; Z91.148 Patient's other noncompliance with medication regimen for other reason; Z62.810 Personal history of physical and sexual abuse in childhood; Z79.899 Other long term (current) drug therapy
CPT/HCPCS: 36415; 70450; 71046; 72040; 73000; 73130; 80048; 80053; 80061; 80076; 80307; 81001; 83036; 83735; 84443; 84484; 85025; 87086; 87637; 93005; 99285; J0131; S9485

== ENCOUNTER → 2025-02-22 08:54 | Outpatient (BNV) | payer OTHER, SELFPAY | PROVIDERS: Emergency Provider Emergency Medicine; PCP Dentist General Practice; Visit Provider Radiology Diagnostic Radiology | DX: R51.9 Headache, unspecified (principal) | CPT/HCPCS: 70450 ==

== ENCOUNTER → 2025-02-22 11:23 | Outpatient (BNV) | payer OTHER, SELFPAY | PROVIDERS: Emergency Provider Emergency Medicine; PCP Dentist General Practice; Visit Provider Internal Medicine Cardiovascular Disease | DX: R00.1 Bradycardia, unspecified (principal) | CPT/HCPCS: 93010 ==

== ENCOUNTER 2025-02-23 14:33 | Outpatient (BNV) | payer OTHER, SELFPAY | END 2025-03-05 11:50 | PROVIDERS: Admitting Provider Psychiatry & Neurology Psychiatry; Emergency Provider Emergency Medicine; PCP Dentist General Practice; Visit Provider Radiology Diagnostic Radiology | DX: M79.641 Pain in right hand (principal); R07.9 Chest pain, unspecified; M25.511 Pain in right shoulder; M25.512 Pain in left shoulder | CPT/HCPCS: 71046; 72040; 73000; 73130 ==

== ENCOUNTER 2025-02-23 14:33 | Outpatient (BNV) | payer OTHER, SELFPAY | END 2025-02-28 12:17 | PROVIDERS: Admitting Provider Psychiatry & Neurology Psychiatry; Emergency Provider Emergency Medicine; PCP Dentist General Practice; Visit Provider Internal Medicine | DX: R07.9 Chest pain, unspecified (principal) | CPT/HCPCS: 93010 ==

== ENCOUNTER → 2025-02-23 14:33 | Outpatient (BNV) | payer OTHER, SELFPAY | PROVIDERS: Admitting Provider Psychiatry & Neurology Psychiatry; Emergency Provider Emergency Medicine; PCP Dentist General Practice; Visit Provider Nurse Practitioner Psychiatric/Mental Health | DX: F32.3 Major depressive disorder, single episode, severe with psychotic features (principal); F41.9 Anxiety disorder, unspecified; G43.909 Migraine, unspecified, not intractable, without status migrainosus | CPT/HCPCS: 90792; 99231; 99232 ==

== ENCOUNTER → 2025-02-23 14:33 | Outpatient (BNV) | payer OTHER, SELFPAY | PROVIDERS: Admitting Provider Psychiatry & Neurology Psychiatry; Emergency Provider Emergency Medicine; PCP Dentist General Practice; Visit Provider Nurse Practitioner Family | DX: R10.9 Unspecified abdominal pain (principal); G89.29 Other chronic pain; H60.92 Unspecified otitis externa, left ear; B37.81 Candidal esophagitis | CPT/HCPCS: 99222 ==

== ENCOUNTER 2025-03-20 12:42 | Emergency (ER) | payer OTHER, SELFPAY ==
[2025-03-20 12:49] VITALS: BP 143/66; PULSE 117; RESP 17; TEMP 36.8; O2SAT 95; BMI 22.6
--- NOTE | 2025-03-20 12:49 | ED.URI ---
HPI - URI/Sore Throat General Chief Complaint: Upper Respiratory Symptoms Stated Complaint: sore throat and ear pain Time Seen by Provider: 03/20/25 16:22 Source: patient, RN notes reviewed and old records reviewed Mode of arrival: ambulatory Limitations: no limitations History of Present Illness ED Provider: Rashaun TERAN Narrative: Patient is a 59-year-old female with history of esophageal candidiasis, migraines, asthma, anxiety and depression, psychotic disorder, chronic abdominal pain, PTSD presenting to the emergency department with complaint of sore throat, right ear pain and chills since last night as well as hematuria for the past week. Denies back or flank pain. Denies difficulty swallowing. Denies abdominal pain, nausea, vomiting, diarrhea or constipation. Related Data Previous Rx's ?Medication ?Instructions ?Recorded [id number]-[id number]-[id number] 250 2 tab PO Q6H PRN headache #30 tabs 11/29/23 mg-250 mg-65 mg tablet (Excedrin Migraine) acetaminophen 325 mg tablet 650 mg (2 x 325 mg) PO Q6H PRN 03/17/25 Headache/Pain, Scale 1-10 #10 tabs albuterol sulfate 90 mcg/actuation 90 mcg inhalation BID #1 inhaler 03/17/25 aerosol inhaler (Ventolin HFA) baclofen 10 mg tablet 10 mg PO TID #21 tabs 03/17/25 buprenorphine 8 mg-naloxone 2 mg 1 film sublingual BEDTIME PRN sx 03/17/25 sublingual film (Suboxone) of opiate withdrawal #2 ea buprenorphine 8 mg-naloxone 2 mg 1 film sublingual DAILY #2 ea 03/17/25 sublingual film (Suboxone) clonidine HCl 0.1 mg tablet 0.1 mg PO BID@0900,1300 #14 tabs 03/17/25 cyclobenzaprine 7.5 mg tablet 7.5 mg PO BID PRN muscle spasm #8 03/17/25 tabs diphenhydramine HCl 25 mg capsule 50 mg (2 x 25 mg) PO Q6H PRN 03/17/25 headache, nausea, vomiting #10 caps ibuprofen 600 mg tablet 600 mg PO Q6-8H PRN pain #10 tabs 03/17/25 lamotrigine 25 mg tablet 25 mg PO BEDTIME #7 tabs 03/17/25 omeprazole 20 mg capsule,delayed 20 mg PO BID@0630,1630 #14 caps 03/17/25 release prazosin 1 mg capsule 2 mg PO BEDTIME #7 caps 03/17/25 quetiapine 50 mg tablet 50 mg PO BEDTIME #7 tabs 03/17/25 risperidone 1 mg tablet 1 mg PO BID #14 tabs 03/17/25 sertraline 50 mg tablet 75 mg (1.5 x 50 mg) PO DAILY #11 03/17/25 tabs topiramate 50 mg tablet 50 mg PO BEDTIME #7 tabs 03/17/25 trazodone 50 mg tablet 50 mg PO BEDTIME MRX1 PRN Insomnia 03/17/25 #14 tabs cefuroxime axetil 250 mg tablet 250 mg PO BID #14 tabs 03/20/25 Allergies Allergy/AdvReac Type Severity Reaction Status Date / Time menthol (From [place] Cough Allergy Severe ANAPHYLAXIS Verified 03/20/25 12:50 Drops) trimethobenzamide (Tigan) Allergy Severe Anaphylaxis Verified 03/20/25 12:50 camphor (From [employer] VAPORUB) Allergy Unknown ANAPHYLAXIS Verified 03/20/25 12:50 eucalyptus (From VICKS Allergy Unknown ANAPHYLAXIS Verified 03/20/25 12:50 VAPORUB) petrolatum,white (From VICKS Allergy Unknown ANAPHYLAXIS Verified 03/20/25 12:50 VAPORUB) turpentine oil (From VICKS Allergy Unknown ANAPHYLAXIS Verified 03/20/25 12:50 VAPORUB) Review of Systems Review of Systems: As per HPI Yes all other systems are reviewed and are negative Constitutional: Constitutional: Reports as per HPI [facility] Past Medical History Medical History (Updated 03/20/25 @ 17:25 by Columba Rodney NP) PTSD (post-traumatic stress disorder) Routine medical exam Substance abuse Asthma Opioid dependence Migraine Social History Social History Household Members: None Housing: Homeless Do you presently have visiting nurse or other home services: No Alcohol intake: never Patient Tobacco Use Status: Current everyday Tobacco user Tobacco use type: Cigarette Cigarette Packs Per Day: 1 Cigarettes Per Day: 20.0 Years Smoked: Many e-Cigarette/Vaping Use: Never Used Second Hand Smoke Exposure: Yes Substance Use Type: Marijuana Advance Directives: No Advance Directives Information Provided: No Do you have a plan to hurt others: No Plan service: No Current occupational status: disabled 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 Blood pressure normal. Heart rate normal. Respiratory rate normal. Temperature normal. Oxygen saturation normal. Const: General: cooperative, healthy appearing and no acute distress Orientation/consciousness: oriented to person, oriented to place, oriented to time and patient oriented x3 Limitations: no limitations HEENT: Head: Yes normocephalic and Yes atraumatic Ears: hearing grossly normal bilaterally, external ears normal, TM's normal bilaterally, EAC's normal, mastoids normal bilaterally and no periauricular adenopathy General nose exam: Normal external nose present Face and sinus: Yes face symmetric Mouth: oropharynx normal and moist mucous membranes Throat: Yes posterior oropharynx normal, Yes uvula midline and No uvular edema Eyes: Pupils: Equal, round and reactive pupils present Neck: Neck: Yes normal visual inspection, Yes no lymphadenopathy and Yes supple Resp: Effort & Inspection: normal respiratory effort and able to speak in complete sentences Auscultation: clear to auscultation bilaterally Cardio: Rate: regular rate Rhythm: regular rhythm Heart sounds: S1 normal heart sound present and S2 normal heart sound present GI: Palpation (GI): Soft to palpation and nontender Auscultation: normoactive bowel sounds : General: Yes no CVA tenderness Back/Spine/Pelvis: Back: no CVA tenderness Skin: General skin exam: elasticity normal and turgor normal Neuro: General: oriented to person, oriented to place, oriented to time, patient oriented x3, moves all extremities, no focal motor deficits and CN's II-XI intact bilaterally Cranial nerves: Yes Equal, round and reactive pupils present Cognition (Neuro): normal cognition Extrem: General: Yes full ROM, Yes no pedal edema and Yes no calf tenderness Psych: Mental Status: mental status grossly normal Affect: normal affect Thought process: Normal thought process present Course Course Course Narrative: This is an RME performed by Jerri Maharaj CNP: Additional HPI, ROS, PE not included below will be deferred to primary provider. Patient is a 59-year-old female recently with tobacco cessation 1 month ago, history of asthma who presents emergency department for evaluation of a sore throat and right ear pain with onset of symptoms last night, stomach pain and bloating. Denies fevers or chills. No headache or neck pain associated with this. No chest pain or shortness of breath. Reports that she was treated for a throat infection 2 weeks ago while admitted for inpatient psych, never had any symptoms . Per medical record it seems she has a history of Sharmaine esophagitis following with outpatient Gastroenterology, is being treated with nystatin swish and swallow for this Plan: Viral serologies, group a strep, labs Reevaluation(s) Reevaluation #1: Notified by RN that patient refusing discharge when paperwork brought into room. Patient now agitated, stating that she was not notified of her results or plan, swearing at staff. Stating that she presented to the emergency department for a migraine and that no one is treating her pain. Discussed with patient that she was just updated on her results and that she is being treated for UTI, and that she had not previously complained of migraine symptoms. Patient stating that she now wants treatment for her migraine headache. Will order IV fluids, Reglan and Benadryl. Patient signed out to [facility] pending reassessment after migraine meds. Time: 17:51 Medical Decision Making Medical Decision Making MDM Narrative: Patient is a 59-year-old female with history of esophageal candidiasis, migraines, asthma, anxiety and depression, psychotic disorder, chronic abdominal pain, PTSD presenting to the emergency department with complaint of sore throat, right ear pain and chills since last night as well as hematuria for the past week. On exam patient is awake, A+Ox3, VS WNL, afebrile, normal neurological exam without focal deficits, physical exam findings as above. Given reported symptoms and physical exam findings, initial differential includes but is not limited to UTI, viral illness, strep pharyngitis, otitis media, otitis externa. UA notable for 2+ leukocytes, 11-20 wbc's, 1+ bacteria. Will treat for UTI. Labs unremarkable. Strep and viral panel negative. Will discharge patient home on cefuroxime. Advised follow up with PCP. Return precautions discussed. Patient verbalized understanding of and agreement with plan. Differential Diagnosis Differential Diagnoses: The differential diagnosis associated with the presentation includes As per [facility] Admission/Observation Consideration of admission/observation: Escalation of care including admission/observation considered Patient would have been admitted to the hospital had their clinical presentation warranted hospital admission. Lab Data [facility] Lab Attestation statement: I reviewed the patient's lab results. [facility] 03/20/25 14:05 03/20/25 14:05 Labs: Lab Results 03/20/25 03/20/25 Range/Units 14:05 16:47 WBC 5.3 (4.8-10.8) X10*3/uL RBC 3.66 L (4.20-5.50) X10*6/uL Hgb 11.2 L (12.0-16.0) g/dl Hct 32.1 L (37.0-47.0) % MCV 87.7 (80.0-98.0) fL MCH 30.6 (27.0-33.0) pg MCHC 34.9 (31.0-35.0) g/dl RDW 12.6 (11.0-16.0) % Plt Count 199 (160-400) X10*3/uL MPV 9.2 L (9.4-12.3) fL Immature Gran % (Auto) 0.2 (0.0-0.4) % Neut % (Auto) 70.2 (45-73) % Lymph % (Auto) 18.5 L (20-40) % Gove % (Auto) 8.6 (2-11) % Eos % (Auto) 2.1 (0-4) % Baso % (Auto) 0.4 (0-2) % Lymph # (Auto) 1.0 L (1.2-4.9) X10*3/uL Gove # (Auto) 0.5 (0.1-1.2) X10*3/uL Eos # (Auto) 0.1 (0.0-0.4) X10*3/uL Baso # (Auto) 0.0 (0.0-0.2) X10*3/uL Abs Immat Gran (auto) 0.01 (0.00-0.03) X10*3/uL Absolute Neuts (auto) 3.8 (2.0-8.3) x10*3/uL Absolute Nucleated RBC 0.000 (0.0-0.012) X10*3/uL Nucleated RBC % (auto) 0.0 (0.0-0.2) /100WBC Sodium 141 (135-145) mmol/L Potassium 4.3 (3.3-5.1) mmol/L Chloride 108 (96-108) mmol/L Carbon Dioxide 27 (22-29) mmol/L Anion Gap 10 L (12-20) BUN 26 H (9-16) mg/dL Creatinine 0.75 (0.5-1.4) mg/dL Estim Creat Clear Calc 65.5 Estimated GFR > 60 Random Glucose 128 H (60-115) mg/dL Calcium 9.0 (8.4-10.2) mg/dL Total Bilirubin 0.3 (0.0-1.0) mg/dL AST 34 H (5-31) U/L ALT 37 H (0-31) U/L Alkaline Phosphatase 90 (39-117) U/L Total Protein 7.3 (6.5-8.0) g/dL Albumin 4.4 (3.5-5.0) g/dL Lipase 30 (8-78) U/L Urine Color Yellow Urine Appearance Clear Urine pH 6.0 (5.0-9.0) Ur Specific [place] 1.020 (1.005-1.025) Urine Protein Negative (Neg-Trace) mg/dL Urine Glucose (UA) Negative (Negative) mg/dL Urine Ketones Trace (Negative) mg/dL Urine Blood Trace H (Negative) Urine Nitrite Negative (Negative) Ur Leukocyte Esterase Moderate (2+) H (Negative) Urine RBC 6-10 H (0-2) /HPF Urine WBC 11-20 H (0-5) /HPF Ur Squamous Epith Cells 3-5 (0-2) /HPF Urine Bacteria 1+ (None Seen) Hyaline Casts 0-2 (0-2) /LPF Influenza Type A (PCR) NEGATIVE (Negative) Influenza Type B (PCR) NEGATIVE (Negative) RSV RNA Qual (PCR) NEGATIVE (Negative) SARS-CoV-2 RNA (RT-PCR) NEGATIVE (Negative) S. pyogenes GrpA GLORIA Negative (Negative) External Record Review External record reviewed: Inpatient record, Office record and Outpatient record Prescription Management I considered prescription management with: Antibiotic Discharge Plan Discharge Clinical Impression: UTI (urinary tract infection) Qualifiers: Urinary tract infection type: acute cystitis Hematuria presence: with hematuria Qualified Code(s): N30.01 - Acute cystitis with hematuria Patient Disposition: Home, Self-Care Instructions: Urinary Tract Infection in Women (DC) Additional Instructions: You have been evaluated in the emergency department today for your urinary symptoms. Your evaluation, including urinalysis, suggests that your symptoms are due to urinary tract infection. Please take your prescribed antibiotics for the full course of medication as directed. Please follow-up with your primary care provider within 2 days. Return to the emergency department if you experience fevers 100.4? F or greater, worsening or uncontrolled pain, vomiting, flank pain, or for any other concerning symptoms. Prescriptions: New cefuroxime axetil 250 mg tablet 250 mg PO BID Qty: 14 0RF No Action clonidine HCl 0.1 mg Tablet 0.1 mg PO BID@0900,1300 Qty: 14 4RF Protocol: Hold for SBP< HOLD for SBP < : 90 acetaminophen 325 mg Tablet 650 mg PO Q6H PRN (Reason: Headache/Pain, Scale 1-10) Qty: 10 0RF prazosin 1 mg Capsule 2 mg PO BEDTIME Qty: 7 4RF Protocol: Hold for SBP< HOLD for SBP < : 90 lamotrigine 25 mg Tablet 25 mg PO BEDTIME Qty: 7 4RF buprenorphine-naloxone [Suboxone] 8-2 mg Film 1 film sublingual BEDTIME PRN (Reason: sx of opiate withdrawal) Qty: 2 0RF buprenorphine-naloxone [Suboxone] 8-2 mg Film 1 film sublingual DAILY Qty: 2 0RF trazodone 50 mg Tablet 50 mg PO BEDTIME MRX1 PRN (Reason: Insomnia) Qty: 14 4RF omeprazole 20 mg Capsule,Delayed Release(Dr/Ec) 20 mg PO BID@0630,1630 Qty: 14 4RF risperidone 1 mg Tablet 1 mg PO BID Qty: 14 0RF sertraline 50 mg tablet 75 mg PO DAILY Qty: 11 4RF baclofen 10 mg tablet 10 mg PO TID Qty: 21 4RF diphenhydramine HCl 25 mg capsule 50 mg PO Q6H PRN (Reason: headache, nausea, vomiting) Qty: 10 0RF ibuprofen 600 mg tablet 600 mg PO Q6-8H PRN (Reason: pain) Qty: 10 0RF albuterol sulfate [Ventolin HFA] 90 mcg/actuation HFA aerosol inhaler 90 mcg inhalation BID Qty: 1 0RF topiramate 50 mg tablet 50 mg PO BEDTIME Qty: 7 4RF quetiapine 50 mg tablet 50 mg PO BEDTIME Qty: 7 4RF cyclobenzaprine 7.5 mg tablet 7.5 mg PO BID PRN (Reason: muscle spasm) Qty: 8 0RF Excedrin Migraine 250-250-65 mg tablet 2 tab PO Q6H PRN (Reason: headache) Qty: 30 0RF Print Language: [place]
[2025-03-20 14:17] LABS: MANUAL DIFF FLAG NO
[2025-03-20 14:19] LABS: Hematocrit 32.1 % (37.0-47.0); Hemoglobin 11.2 g/dl (12.0-16.0); Imm Gran Abs Auto 0.01 X10*3/uL (0.00-0.03); Imm Gran Pct Auto 0.2 % (0.0-0.4); Lymphocytes Absolute Auto 1.0 X10*3/uL (1.2-4.9); Mean Corpuscular HGB Conc 34.9 g/dl (31.0-35.0); Mean Corpuscular Hemoglobin 30.6 pg (27.0-33.0); Mean Corpuscular Volume 87.7 fL (80.0-98.0); NRBC Abs Auto 0.000 X10*3/uL (0.0-0.012); NRBC Pct Auto 0.0 /100WBC (0.0-0.2); Platelet Count 199 X10*3/uL (160-400); Red Blood Count 3.66 X10*6/uL (4.20-5.50); White Blood Count 5.3 X10*3/uL (4.8-10.8)
[2025-03-20 14:36] LABS: Alanine Aminotransferase 37 U/L (0-31); Albumin Level 4.4 g/dL (3.5-5.0); Alkaline Phosphatase 90 U/L (39-117); Anion Gap 10 (12-20); Aspartate Amino Transferase 34 U/L (5-31); Blood Urea Nitrogen 26 mg/dL (9-16); Calcium 9.0 mg/dL (8.4-10.2); Carbon Dioxide 27 mmol/L (22-29); Chloride 108 mmol/L (96-108); Creatinine Clr Calc Pharmacy 65.5; Estimated Glomerular Filt Rate > 60; Lipase 30 U/L (8-78); Potassium 4.3 mmol/L (3.3-5.1); Sodium 141 mmol/L (135-145); Total Protein 7.3 g/dL (6.5-8.0)
[2025-03-20 14:54] LABS: Resp Syncy Virus RNA Qual PCR NEGATIVE (Negative); SARS COV2 PCR INHOUSE NEGATIVE (Negative)
[2025-03-20 15:13] LABS: IDNOW Serial# 55D5AD1C; Strep A Nucleic Acid Negative (Negative)
--- OUTSIDE RECORDS SUMMARY | 2025-03-20 16:33 | XMS_ITS | Clinical Summary ---
Author Organization [facility] Address [address] [place] [address] Care Team Providers Care Rn Perinatal Name Role Phone Jamel Bloom MD Primary Care Provider [phone] Source Comments PLEASE NOTE, if this patient [...] disorder, r ecurrent, severe with psychotic features ([facility]) 12/23/2018 Opioid dependence ([facility]) 12/13/2018 Encounters Date Type Department Care Team Description 02/15/2025 Interim Notes Caring [address] [phone] Douglas Chadwick, Community Health Worker 01/26/2025 4:00 PM EDT BH/MH Visits [address] [phone] Krys Santana [facility] 01/06/2025 9:15 AM EDT BH/MH Visits [address] [phone] Krys Santana [facility] 01/05/2025 Results Follow-Up [address] [phone] Maxine Johnson RN 12/30/2024 3:00 PM EDT BH/MH Visits [address] [phone] Krys Santana [facility] 12/30/2024 2:20 PM EDT Office Visit [address] [phone] Jamel Bloom MD from Last 3 Months [...] 12/30/2024 2:21 PM EDT Plan of Treatment Health Maintenance Due [...] 04/23/2012 Imm-Zoster, Recombinant (1 of 2) 2017 [id number]-91 ( season) 2024 Depression Monitoring 04/01/2025 12/30/2024 , 11/13/2023, 07/02/2023, Additional history exists Imm-Influenza (#1) 2025 Anxiety Screening 12/30/2025 12/30/2024 Hypertension Screening (#1) 12/30/2025 Tobacco Cessation Counseling (#1) 12/30/2025 025 Diabetes Screening 02/22/2026 02/22/2025, 0 02/13/2025, 01/30/2025, Additional history exists Lipid Screening 09/25/2029 09/25/2024, 06/19, 03/21/2022, Additional history exists Imm-DTaP/Tdap/Td (3 - Td or Tdap) 01/26/2035 025, 11/11/2018 HIV Screening Completed 09/25/2024, 05/10/2017 Hepatitis C Screening Completed 09/25/2024, 023 Alcohol and Drug Screen Completed 12/31/19, 11/13/2023, 11/28/2018, Additional history exists Cervical Ablation/Cold-Knife Conization Discontinued Cervical Cryotherapy Discontinued Colposcopy Discontinued Endometrial Biopsy Discontinued Excision/Leep Discontinued HPV Genotyping Discontinued Imm-Hepatitis B Discontinued Vaginal Pap Discontinued Vulvoscopy Discontinued Procedures Procedure Name Priority Date/Time Associated Diagnosis Comments IMAGING SCANNED DOCUMENT 03/05/2025 3:00 AM EDT IMAGING SCANNED DOCUMENT 03/05/2025 3:00 AM EDT IMAGING SCANNED DOCUMENT 03/05/2025 3:00 AM EDT IMAGING SCANNED DOCUMENT 03/05/2025 3:00 AM EDT IMAGING SCANNED DOCUMENT 02/22/2025 3:00 AM EDT IMAGING SCANNED DOCUMENT 02/22/2025 3:00 AM EDT IMAGING SCANNED DOCUMENT 02/12/2025 3:00 AM EDT IMAGING SCANNED DOCUMENT 02/12/2025 3:00 AM EDT REFERRAL SCANNED DOCUMENT 02/02/2025 3:00 AM EDT OTHER ORDERS SCANNED DOCUMENT 01/05/2025 3:00 AM EDT PROCEDURE SCANNED DOCUMENT 12/28/2024 3:00 AM EDT REFERRAL SCANNED DOCUMENT 12/21/2024 3:00 AM EDT HIV 1/2 AG & [...] Health Maintenance Results * IMAGING SCANNED DOCUMENT (03/05/2025 3:00 AM EDT) Only the most recent of8 resultswithin the time period is included. 03/05/2025 3:00 AM EDT us Jamel Bloom MD SCAN IMAGING Final Result * REFERRAL SCANNED DOCUMENT (02/02/2025 3:00 AM EDT) Only the most recent of2 resultswithin the time period is included. 02/02/2025 3:00 AM EDT [facility] Provider Default SCAN REFERRAL Final Resu lt * OTHER ORDERS SCANNED DOCUMENT (01/05/2025 3:00 AM EDT) 01/05/2025 3:00 AM EDT Jamel Bloom MD SCAN OTHER ORDERS Final Resu lt * PROCEDURE SCANNED DOCUMENT (12/28/2024 3:00 AM EDT) 12/28/2024 3:00 AM EDT Ciaran Mason Rubens FNP SCAN PROCEDURES Fi nal Result * HEPATITIS C AB W/RFLX HCV RNA, QT, RT PCR (09/25/2024 3:38 PM EST) HEPATITIS C ANTIBODY NON-REACT SHAW NON-REACT SHAW [employer] [facility] Comment: HCV antibody was non-reactive. There is no laboratory evidence of HCV infection. In most cases, no further action is required. However, if recent HCV exposure is suspected, a test for HCV RNA (test code 96485) is suggested. For additional information please refer to http://education.Nortis/faq/VVH43w3 (This link is being provided for informational/ educational purposes only.) Blood Blood / Unknown 09/25/2024 3 :38 PM EST 09/25/2024 3:40 PM EST Narrative [employer] [facility] - 09/26/2024 3:09 PM EST FASTING:YES Ciaran aMson Rubens FNP LAB - BLOOD DRAW E dited Result - Final [place] [address] [address], [place] [address] [address] * HIV 1/2 AG & AB W/RFLX (4TH GEN) (09/25/2024 3:38 PM EST) Pathologist [facility] HIV AG/AB, 4TH GEN NON-REAC TIVE NON-REAC TIVE [employer] [facility] Comment: HIV-1 antigen and HIV-1/HIV-2 antibodies were [...] purpose. For additional information please refer to http://education.Online Agility.Wellcore/faq/DOX542 (This link is being provided for informational/ educational purposes only.) The performance of this assay has not been clinically validated in patients less than 2 years old. Blood Blood / Unknown 09/25/2024 3 :38 PM EST 09/25/2024 3:40 PM EST Narrative [employer] [facility] - 09/26/2024 3:09 PM EST FASTING:YES Ciaran Art [facility] LAB - BLOOD DRAW F inal Result Performing Organization Address [facility] [[email or web address]] Co de Phone Number [employer] [address] [address], [employer] [address] [address] * (ABNORMAL) HEMOGLOBIN GLYCOSYLATED A1C (09/25/2024 3:38 PM EST) HEMOGLOBIN A1C 5.9(H) <5.7 % of total Hgb [facility] Comment: For someone without known diabetes, a [...] PM EST 09/25/2024 3:40 PM EST Narrative [employer] [facility] - 09/26/2024 3:09 PM EST FASTING:YES Ciaran Art [facility] LAB - BLOOD DRAW E dited Result - Final Performing Organization Address [facility]/ZIP Co de Phone Number [employer] [address] [address], [employer] [address] [address] * (ABNORMAL) LIPID PANEL (09/25/2024 3:38 PM EST) CHOLESTEROL, TOTAL 237(H) <200 mg/dL [place] [facility] HDL CHOLESTEROL 103 > OR = 50 mg/dL [place] [facility] TRIGLYCERIDES 96 <150 mg/dL [place] [facility] LDL-CHOLESTEROL 114(H) 99 mg/dL (calc) [place] [facility] Comment: Reference range: <100 Desirable range <100 mg/dL for primary prevention; <70 mg/dL for patients with CHD or diabetic patients with > or = 2 CHD risk factors. LDL-C is now calculated using the Marquis calculation, which is a validated novel method providing better accuracy than the Friedewald equation in the estimation of LDL-C. Jovani SS et al. AVIVA. 2013;310(39): 9875-5882 (http://education.Trippeo/faq/DRC126) CHOL/HDLC RATIO 2.3 <5.0 (calc) [place] [facility] NON-HDL CHOLESTEROL 134(H) <130 mg/dL (calc) [place] [facility] Comment: For patients with diabetes plus 1 major ASCVD risk factor, treating to a non-HDL-C goal of <100 mg/dL (LDL-C of <70 mg/dL) is considered a therapeutic option. Blood Blood / Unknown 09/25/2024 3 :38 PM EST 09/25/2024 3:40 PM EST Narrative [employer] - 09/26/2024 3:09 PM EST FASTING:YES Ciaran [facility] LAB - BLOOD DRAW F inal Result [employer] [facility] [address] [address], [place] [facility] [address] [place] [address] from Last 3 Months or Most Recently Relevant to Health Maintenance Insurance [employer] [place] [id number] Care Teams Rn Perinatal Relationship Specialty Start Date End Date Jamel Bloom MD [address] [place] [address] PCP - General Internal Medicine 03/10/24
--- OUTSIDE RECORDS SUMMARY | 2025-03-20 16:33 | XMS_ITS | Clinical Summary ---
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 Physician, No Pcp Primary [...] EDT - 02/22/2025 5:43 AM EDT Emergency [facility] Emergency [address] [place] [phone] Discharge Disposition: Home or Self Care 02/13/2025 6:43 AM EDT - 02/13/2025 1:30 PM EDT Emergency [facility] Emergency [address] [place] [phone] Hieu Lomas MD Migraine without aura and with status migrainosus, not intractable (Primary Dx) Discharge Disposition: Home or Self Care 01/30/2025 7:24 AM EDT - 01/30/2025 12:36 PM EDT Emergency [facility] Emergency [address] [place] [phone] Migraine without status migrainosus, not intractable, unspecified migraine type (Primary Dx); Other chest pain; Chronic abdominal pain Discharge Disposition: Home or Self Care 12/28/2024 1:09 PM EDT - 12/28/2024 11:59 PM EDT Hospital Encounter [facility] Neurodiagnostic [address] [place] [phone] Anesthesia of skin; Paresthesia of skin Discharge Disposition: Home or Self Care 12/21/2024 12:43 AM EDT - 12/21/2024 8:05 AM EDT Emergency [facility] Emergency [address] [place] [phone] Elpidio Blanco MD Chest wall pain (Primary [...] Screening 07/22/2022 COVID-19 Vaccine ( season) 2024 Depression Screening 08/19/2024 Influenza Vaccine (#1) 2025 Cholesterol Screening (Lipid Panel) 09/25/2029 09/25/2024, 09/25/2024, [...] of4 resultswithin the time period is included. WBC 7.6 4.8 - 10.8 K/mcL LAB HEMETOLOGY METHOD 02/22/2025 4:38 AM [facility] RBC 4.10 3.80 - 4.80 M/mcL LAB HEMETOLOGY METHOD 02/22/2025 4:38 AM [facility] Hemoglobin 12.2 11.5 - 16.0 g/dL LAB HEMETOLOGY METHOD 02/22/2025 4:38 AM [facility] Hematocrit 36.8 35.0 - 47.0 % LAB HEMETOLOGY METHOD 02/22/2025 4:38 AM [facility] MCV 90.4 79.0 - 98.0 FL LAB HEMETOLOGY METHOD 02/22/2025 4:38 AM [facility] MCH 30.0 27.0 - 32.0 pcg LAB HEMETOLOGY METHOD 02/22/2025 4:38 AM [facility] MCHC 33.2 32.0 - 37.0 g/dL LAB HEMETOLOGY METHOD 02/22/2025 4:38 AM [facility] RDW 12.5 11.0 - 15.0 % LAB HEMETOLOGY METHOD 02/22/2025 4:38 AM [facility] Platelets 212 130 - 400 K/mcL LAB HEMETOLOGY METHOD 02/22/2025 4:38 AM [facility] MPV 10.6 7.0 - 11.0 FL LAB HEMETOLOGY METHOD 02/22/2025 4:38 AM [facility] NRBC 0.0 <1.0 % LAB HEMETOLOGY METHOD 02/22/2025 4:38 AM [facility] NRBC Absolute 0.00 <0.10 K/mcL LAB HEMETOLOGY METHOD 02/22/2025 4:38 AM [facility] Neutrophils Relative 73.2 % LAB HEMETOLOGY METHOD 02/22/2025 4:38 AM [facility] Lymphocytes Relative 19.2 % LAB HEMETOLOGY METHOD 02/22/2025 4:38 AM [facility] Monocytes Relative 6.1 % LAB HEMETOLOGY METHOD 02/22/2025 4:38 AM [facility] Eosinophils Relative 0.9 % LAB HEMETOLOGY METHOD 02/22/2025 4:38 AM [facility] Basophils Relative 0.3 % LAB HEMETOLOGY METHOD 02/22/2025 4:38 AM [facility] Immature Granulocytes Relative 0.3 % LAB HEMETOLOGY METHOD 02/22/2025 4:38 AM [facility] Neutrophils Absolute 5.55 1.50 - 7.00 K/mcL LAB HEMETOLOGY METHOD 02/22/2025 4:38 AM [facility] Lymphocytes Absolute 1.45 1.00 - 5.00 K/mcL LAB HEMETOLOGY METHOD 02/22/2025 4:38 AM [facility] Monocytes Absolute 0.46 0.20 - 1.00 K/mcL LAB HEMETOLOGY METHOD 02/22/2025 4:38 AM [facility] Eosinophils Absolute 0.07 0.00 - 0.50 K/mcL LAB HEMETOLOGY METHOD 02/22/2025 4:38 AM [facility] Basophils Absolute 0.02 0.00 - 0.20 K/mcL LAB HEMETOLOGY METHOD 02/22/2025 4:38 AM EDT [facility] Immature Granulocytes Absolute 0.02 0.00 - 0.03 K/mcL LAB HEMETOLOGY METHOD 02/22/2025 4:38 AM EDT [facility] Blood Venous blood specimen / Unknown Venipuncture / Unknown 02/22/2025 3:38 AM EDT 02/22/2025 4:33 AM EDT us Elpidio Blanco MD LAB BLOOD ORDERABLES Final Resu lt Performing Organization Address [facility] Co de Phone Number [facility] [address] [place] [address], [place] [phone] * Lipase (02/22/2025 3:38 AM EDT) Only the most recent of3 resultswithin the time period is included. Lipase 28 13 - 75 unit/L LAB CHEMISTRY METHOD 02/22/2025 4:57 AM EDT [facility] Blood Venous blood specimen / Unknown Venipuncture / Unknown 02/22/2025 3:38 AM EDT 02/22/2025 4:33 AM EDT us Elpidio Blanco MD LAB BLOOD ORDERABLES Final Resu lt Performing Organization Address [facility] de Phone Number [facility] [address] [place] [address], [place] [phone] * (ABNORMAL) Comprehensive metabolic panel (02/22/2025 3:38 AM EDT) Only the most recent of4 resultswithin the time period is included. Sodium 137 133 - 145 mmol/L LAB CHEMISTRY METHOD 02/22/2025 5:08 AM EDT [facility] Potassium 4.5 3.5 - 5.5 mmol/L LAB CHEMISTRY METHOD 02/22/2025 5:08 AM EDT [facility] Chloride 103 96 - 110 mmol/L LAB [facility]STR[facility] CO2 32 21 - 32 mmol/L LAB CHEMISTRY METHOD 02/22/2025 5:08 AM [facility] Anion Gap 2(L) 3 - 11 LAB CHEMISTRY METHOD 02/22/2025 5:08 AM [facility] Glucose 102(H) 70 - 100 mg/dL LAB CHEMISTRY METHOD 02/22/2025 5:08 AM [facility] BUN 21 5 - 25 mg/dL LAB CHEMISTRY METHOD 02/22/2025 5:08 AM [facility] Creatinine 0.88 0.50 - 1.10 mg/dL LAB CHEMISTRY METHOD 02/22/2025 5:08 AM [facility] eGFR 77 >=60 mL/min/1. 73m2 LAB CHEMISTRY METHOD 02/22/2025 5:08 AM [facility] Comment:Calculation based on the Chronic Kidney Disease Epidemiology Collaboration (CKD-EPI) equation refit without adjustment for race. BUN/Creatinine Ratio 23.9 LAB CHEMISTRY METHOD 02/22/2025 5:08 AM [facility] Calcium 9.1 8.5 - 10.5 mg/dL LAB CHEMISTRY METHOD 02/22/2025 5:08 AM [facility] AST (SGOT) 20 10 - 42 unit/L LAB CHEMISTRY METHOD 02/22/2025 5:08 AM [facility] ALT (SGPT) 42 10 - 60 unit/L LAB CHEMISTRY METHOD 02/22/2025 5:08 AM [facility] Alkaline Phosphatase 90 42 - 121 unit/L LAB CHEMISTRY METHOD 02/22/2025 5:08 AM [facility] Total Protein 7.3 6.0 - 8.0 g/dL LAB CHEMISTRY METHOD 02/22/2025 5:08 AM [facility] Albumin 4.0 3.2 - 5.0 g/dL LAB CHEMISTRY METHOD 02/22/2025 5:08 AM EDT [facility] Total Bilirubin 0.8 0.0 - 1.4 mg/dL LAB CHEMISTRY METHOD 02/22/2025 5:08 AM T [facility] Blood Venous blood specimen / Unknown Venipuncture / Unknown 02/22/2025 3:38 AM EDT 02/22/2025 4:33 AM EDT us Elpidio Blanco MD LAB BLOOD ORDERABLES Final Resu lt [facility] [address] [place] [address], * (ABNORMAL) Urinalysis with reflex microscopic and culture (02/13/2025 12:33 PM EDT) Specific [place] Urine 1.017 1.003 - 1.030 LAB URINALYSIS - AUTOMATED METHOD 02/13/2025 1:40 PM [facility] pH, Urine 6.5 5.0 - 8.0 pH LAB URINALYSIS - AUTOMATED METHOD 02/13/2025 1:40 PM [facility] Leukocytes, Urine Moderate(A) Negative LAB URINALYSIS - AUTOMATED METHOD 02/13/2025 1:40 PM [facility] Nitrite, Urine Negative Negative LAB URINALYSIS - AUTOMATED METHOD 02/13/2025 1:40 PM [facility] Protein, Urine Negative <=Trace mg/dL LAB URINALYSIS - AUTOMATED METHOD 02/13/2025 1:40 PM [facility] Glucose, Urine Negative Negative mg/dL LAB URINALYSIS - AUTOMATED METHOD 02/13/2025 1:40 PM [facility] Ketones, Urine Negative Negative mg/dL LAB URINALYSIS - AUTOMATED METHOD 02/13/2025 1:40 PM [facility] Urobilinogen , Urine 1.0 0.2 - 1.0 mg/dL LAB URINALYSIS - AUTOMATED METHOD 02/13/2025 1:40 PM EDT [facility] Bilirubin, Urine Negative Negative LAB URINALYSIS - AUTOMATED METHOD 02/13/2025 1:40 PM EDT [facility] Blood, Urine Negative Negative LAB URINALYSIS - AUTOMATED METHOD 02/13/2025 1:40 PM EDT [facility] RBC, Urine 0.2 0 - 4 /HPF LAB URINALYSIS - AUTOMATED METHOD 02/13/2025 1:40 PM EDT [facility] WBC, Urine 8.3(H) 0 - 4 /HPF LAB URINALYSIS - AUTOMATED METHOD 02/13/2025 1:40 PM [facility] Squamous Epithelial, Urine 53 0 - 60 /LPF LAB URINALYSIS - AUTOMATED METHOD 02/13/2025 1:40 PM EDT [facility] Bacteria, Urine Few(A) Negative /HPF LAB URINALYSIS - AUTOMATED METHOD 02/13/2025 1:40 PM EDT [facility] Hyaline Casts, Urine 0.8 0 - 3 /LPF LAB URINALYSIS - AUTOMATED METHOD 02/13/2025 1:40 PM [facility] Urine Urine specimen obtained by clean catch procedure / Unknown Non-blood Collection / Unknown 02/13/2025 12:33 PM EDT 02/13/2025 12:52 PM EDT us Yuliya Dockery MD LAB URINE ORDERABLES Fin al Result [facility] [address] [place] [address], * Gautam urine culture tube (02/13/2025 12:33 PM EDT) Extra Tube Hold for add-ons. 02/13/2025 2:01 PM EDT [facility] Comment:Auto resulted. Urine Urine specimen obtained by clean catch procedure / Unknown Non-blood Collection / Unknown 02/13/2025 12:33 PM EDT 02/13/2025 12:52 PM EDT Yuliya Dockery MD LAB URINE ORDERABLES Fin al Result Performing Organization Address City/[facility]/ZIP Co de Phone Number [facility] [address] [place] [address], [place] [phone] * Culture urine (02/13/2025 12:33 PM EDT) Culture, Urine No growth 02/14/2025 10:43 AM EDT [facility] Urine Urine specimen obtained by clean catch procedure / Unknown Non-blood Collection / Unknown 02/13/2025 12:33 PM EDT 02/13/2025 1:40 PM EDT Yuliya Dockery MD LAB MICROBIOLOGY - GENER AL ORDERABLES Final Result Performing Organization Address City/[facility]/ZIP Co de Phone Number [facility] [address] [place] [address], [place] [phone] * ECG-Annotated (02/01/2025) Only the most recent of3 resultswithin the time period is included. Provider Onbase MD ECG ORDERABLES Final Result * ECG 12 lead (01/30/2025 8:00 AM EDT) Only the most recent of4 resultswithin the time period is included. Ventricular Rate ECG 69 BPM GEMUSE Atrial Rate 69 BPM GEMUSE P-R Interval 178 ms GEMUSE QRS Duration 88 ms GEMUSE Q-T Interval 420 ms GEMUSE QTc 450 ms GEMUSE P Wave Wolf 70 degrees GEMUSE R Wolf 55 degrees GEMUSE T Wolf 43 degrees GEMUSE ECG Interpretation Normal sinus rhythm Possible Left atrial enlargement Borderline ECG When compared with ECG of 30-JAN-2025 04:19, (unconfirmed) No significant change was found Confirmed by CLOTILDE GILLIS ([id number]) on 01/30/2025 12:57:31 PM GEMUSE 01/30/2025 8:00 AM EDT 01/30/2025 12:57 PM EDT Yuliya Dockery MD ECG ORDERABLES Final Re sult Performing Organization Address [facility] de Phone Number GEMUSE * Troponin I high sensitivity (01/30/2025 7:52 AM EDT) Only the most recent of4 resultswithin the time period is included. [facility] High Sensitivity Troponin I 7 <=54 ng/L LAB CHEMISTRY METHOD 01/30/2025 9:13 AM EDT [facility] Blood Venous blood specimen / Unknown Venipuncture / Unknown 01/30/2025 7:52 AM EDT 01/30/2025 8:46 AM EDT Narrative [facility] - 01/30/2025 9:13 AM EDT High levels of biotin in samples may falsely decrease hsTroponin values. Use caution when interpreting hsTroponin results in patients taking biotin who exhibit renal impairment (eGFR <60) or in patients taking more than 20 mg/day of biotin. Yuliya Dockery MD LAB BLOOD ORDERABLES Fin al Result Performing Organization Address [facility] de Phone Number [facility] [address] [place] [address], * D-dimer, quantitative (01/30/2025 7:52 AM EDT) [facility] D-Dimer, Quant (D-DU) <150 <=230 ng/mL DDU LAB COAGULATION METHOD 01/30/2025 8:58 AM EDT [facility] Blood Venous blood specimen / Unknown Venipuncture / Unknown 01/30/2025 7:52 AM EDT 01/30/2025 8:46 AM EDT Narrative [facility] - 01/30/2025 8:58 AM EDT D-Dimer <230 ng/mL (D-Dimer units) is the threshold for exclusion of DVT/PE. D-Dimer may be elevated in: Critically ill, severely infected, trauma patients, DIC, acute CVA, acute SC, unstable angina, AF, old age, , and smoking. D-Dimer may be decreased with: Initiation of heparin therapy and oral anticoagulants. us Hina ELY LAB BLOOD ORDERABLES Final Re sult [facility] ([facility] [address] [place] [address], [place] [phone] * XR Chest 2 Views (01/30/2025 7:12 [...] Signed Date: 01/30/2025 09:00 ET Workstation ID: [id number] Transcribed By: Self Edit Transcribed Date: 01/30/2025 09:00 ET Narrative 01/30/2025 9:00 AM EDT XR CHEST 2 VIEWS INDICATION: chest pain TECHNIQUE: XR CHEST 2 VIEWS COMPARISON: No priors available. Procedure Note Fab Escobar MD - 01/30/2025 XR CHEST 2 VIEWS INDICATION: chest pain [...] Signed Date: 01/30/2025 09:00 ET Workstation ID: [id number] Transcribed By: Self Edit Transcribed Date: 01/30/2025 09:00 ET Yuliya Dockery MD IMG XR PROCEDURES Final Result * B-type natriuretic peptide (01/30/2025 4:57 AM EDT) Only the most recent of2 resultswithin the time period is included. BNP 14 <=100 pcg/mL LAB CHEMISTRY METHOD 01/30/2025 6:02 AM EDT [facility] Blood Venous blood specimen / Unknown Venipuncture / Unknown 01/30/2025 4:57 AM EDT 01/30/2025 5:17 AM EDT Yuliya Dockery MD LAB BLOOD ORDERABLES Fin al Result Performing Organization Address [facility]/ZIP Co de Phone Number [facility] [address] [place] [address], [place] [phone] * Magnesium (01/30/2025 4:57 AM EDT) Only the most recent of2 resultswithin the time period is included. Magnesium 2.0 1.9 - 2.6 mg/dL LAB CHEMISTRY METHOD 01/30/2025 5:53 AM EDT [facility] Blood Venous blood specimen / Unknown Venipuncture / Unknown 01/30/2025 4:57 AM EDT 01/30/2025 5:17 AM EDT Yuliya Dockery MD LAB BLOOD ORDERABLES Fin al Result [facility] [address] [place] [address], * EMG two limbs (12/28/2024 2:27 PM EDT) Narrative Margaux Cobb MD - 12/28/2024 4:23 PM EDT See report in chart review Procedure Note Margaux Cobb MD - 12/28/2024 See report in chart review us Ciaran Art NP NEUROLOGY ORDERABLES Final Result from Last 3 Months Insurance [employer] MED[employer] Member Subscriber Plan / Payer (Ef fective 2024-Present) Name:ELIDA LOTT Relation to Subscriber:Self Name:Elida Lott Payer ID:[id number] Group ID:[id number] Type:Not on file Address: [place] [address] [address] [phone] 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
[2025-03-20 16:43] VITALS: BP 103/68; PULSE 86; RESP 16; TEMP 36.6; O2SAT 95
[2025-03-20 16:55] LABS: Appearance Urine Clear; Glucose Urine UA Negative (Negative); PH 6.0 (5.0-9.0); Specific Gravity - Urine 1.020 (1.005-1.025); UMIC TRIGGER UACC YES
[2025-03-20 16:57] LABS: UACC Culture Trigger YES
[2025-03-20 19:00] VITALS: BP 103/67; PULSE 85; RESP 18; TEMP 36.6; O2SAT 96
[2025-03-20 19:02] VITALS: BP 103/67; PULSE 85; RESP 18; TEMP 36.6; O2SAT 96
--- NOTE | 2025-04-01 08:04 | PC.NURSE ---
late entry: NS 1L and Acetaminophen IVPB both finished infusion p/t D/C from the department.
== END 2025-03-20 19:04 | disposition home or self-care (01) ==
PROVIDERS: Nurse Practitioner Family; Registered Nurse Emergency; Emergency Provider Emergency Medicine
DX: N30.01 Acute cystitis with hematuria (principal); G43.909 Migraine, unspecified, not intractable, without status migrainosus; J45.909 Unspecified asthma, uncomplicated; F41.9 Anxiety disorder, unspecified; F32.A Depression, unspecified; R10.9 Unspecified abdominal pain; F43.10 Post-traumatic stress disorder, unspecified; F11.20 Opioid dependence, uncomplicated; F17.210 Nicotine dependence, cigarettes, uncomplicated
CPT/HCPCS: 36415; 80053; 81001; 83690; 85025; 87086; 87637; 87651; 96374; 96375; 99284; 99285; J0131; J2765